=== PATIENT | female | born 1960 | race Caucasian/White ===

== ENCOUNTER 2025-01-07 14:21 | Outpatient (CLI) | payer OTHER, SELFPAY ==
--- OUTSIDE RECORDS SUMMARY | 2025-01-07 14:26 | XMS_ITS | Clinical Summary ---
Author Organization [facility] Address [address] [place] [address] Care Team Providers Care Construction Manager Name Role Phone Lon Recio PA-C Primary Care Provider [phone] Source Comments [facility],non-owned Affiliates and Associated Physician Practices is amultiple site organization consisting of ambulatory clinics and hospital sitesin [place], [place], [place]. This disclosure is being madepursuant to the Care Everywhere program and may not contain all information available regarding this patient. Last updated 18.[facility] [employer] Allergies Active Allergy Reactions Criticality Noted Date Comments Codeine Urticaria Medium 03/02/2020 Medications * Be aware that medications may not be up to date on this document. Alwaysverify current medications with the patient. albuterol HFA (PROVENTIL;VENT MERARY;PROAIR) 108 (90 Base) MCG/ACT inhaler Take 2 puffs by mouth every 4 hours 9 Active cyclobenzaprine (FLEXERIL) 10 MG tablet TAKE 1 TABLET BY MOUTH UP TO THREE TIMES DAILY NEEDED 0 Active fluticasone-fred meterol (ADVAIR/WIXELA) 100-50 MCG/DOSE inhaler INHALE 1 PUFF TWICE DAILY BY INHALATION ROUTE 9 Active omeprazole (PRILOSEC) 40 MG capsule Take 40 mg by mouth once daily 9 Active Pregabalin (LYRICA PO) Take 75 mg by mouth 2 times daily Active chlorthalidone (HYGROTON) 50 MG tablet Take 50 mg by mouth once daily Active fluticasone propionate (FLONASE) 50 MCG/ACT nasal spray Mcdonald 2 sprays into each nostril once daily Active cetirizine (ZYRTEC ALLERGY) 10 MG tablet Take 10 mg by mouth once daily Active venlafaxine (EFFEXOR) 75 MG tabletIndicatio ns:Urinary, incontinence, stress female Take 75 mg by mouth 2 times daily Active Active Problems No known active problems Social History Tobacco Use Types Packs/Day Years Used Date Smoking Tobacco: Every Day Cigarettes Smokeless Tobacco: Never Tobacco Cessation:Ready to Q uit: No; Counseling Given: Yes Alcohol Use Standard Drinks/Week Comments Yes 0 (1 standard drink = 0.6 oz pur e alcohol) occassional Comments No Sex and Gender Information Value Date Recorded Sex Assigned at Not on file Legal Sex Female 11:08 AM CDT Gender Identity Not on file Sexual Orientation Not on file Last Filed Vital Signs Vital Sign Reading Time Taken Comments Blood Pressure 138/86 09/11/2020 10:13 AM CDT Pulse 107 09/11/2020 10:13 AM CDT Temperature 36.2 C (97.1 F) 09/11/2020 10:13 AM CDT Respiratory Rate 18 09/11/2020 10:13 AM CDT Oxygen Saturation 96% 09/11/2020 10:13 AM CDT Inhaled Oxygen Concentration - - Weight 95.7 kg (211 lb) 09/11/2020 10:13 AM CDT Height 177.8 cm (5' 10) 09/11/2020 10:13 AM CDT Body Mass Index 30.28 09/11/2020 10:13 AM CDT Plan of Treatment Health Maintenance Due Date Last Done Comments COLOGUARD (AGES 45-75) - COL ON CA SCREENING 1962 COLON MONITORING 1962 COLONOSCOPY - COLON CA SCREENING 1962 CT COLONOGRAPHY - COLON CA SCREENING 1962 Colorectal Cancer Screening 1962 FIT - COLON CA SCREENING 1962 FLEX SIG - COLON CA SCREENING 1962 LIPID TESTING 1962 MAMMOGRAM 1962 HIV SCREENING 1977 HEPATITIS C SCREENING 12/19/1980 DTAP/TDAP/TD VACCINES (1 - Tdap) 1981 PNEUMOCOCCAL VACCINE 50+ (1 of 1 - PCV) 2012 ZOSTER VACCINE (1 of 2) 2012 SCREENING FOR DIABETES 06/15/2020 COVID-19 VACCINE (2023-2 5 season) 2024 DEPRESSION SCREENING 06/09/2024 INFLUENZA VACCINE (#1) 2025 Respiratory Syncytial Virus (RSV) Vaccine Pt: or over 60 yrs (1 - 1-dose 75+ series) 2037 HEPATITIS B VACCINE Aged Out No longe r eligible based on patient's age to complete this topic HIB VACCINE Aged Out No longer eligi ble based on patient's age to complete this topic HPV VACCINE Aged Out No longer eligi ble based on patient's age to complete this topic MENINGOCOCCAL (Group B) VACC INE SHARED DECISION-MAKING Aged Out No longer eligibl e based on patient's age to complete this topic MENINGOCOCCAL GROUPS A/C/Y/W VACCINE Aged Out No longer eligible b ased on patient's age to complete this topic Medical Devices Implanted Type Area Forms Analysis Manager Device Identifier Shelf Expiration Date Model / Serial / Lot Impl Inj 1ml Coaptite Syr Bulk Agnt - Sn/A Implanted:Qty: 1 on 03/29/2020 by Mando Welch III, MD at [facility] [employer] 12/13/2022 [id number] / N/A / [id number] Impl Inj 1ml Coaptite Syr Bulk Agnt - Sn/A Implanted:Qty: 1 on 03/29/2020 by Mando Welch III, MD at [facility] [employer] 12/13/2022 [id number] / N/A / [id number] Insurance MEDICAID [employer] [place] Care Teams Construction Manager Relationship Specialty Start Date End Date Lon Recio PA-C [address] [place] [phone] PCP - General Physician Custody Officer 02/03/20
--- OUTSIDE RECORDS SUMMARY | 2025-01-07 14:26 | XMS_ITS | Encounter Summary ---
Author Organization [facility] Address [facility] [place] [address] Care Team Providers Care Sales Development Coordinator Name Role Phone Lon Recio PA-C Primary Care Provider Encounter Details Date Type Department Care Team (Late st Contact Info) Description 07/25/[address] [facility] [address] [facility] [place] [address] , Generic Conversion, Social History Tobacco Use Types Packs/Day Years Used Date Smoking Tobacco: Smoker, Current Status Unknown Comments Unknown Sex and Gender Information Value Date Recorded Sex Assigned at Female 08/19/2024 2:55 PM CDT Legal Sex Female 11:42 PM CDT Gender Identity Not on file Sexual Orientation Not on file documented as of this encounter Plan of Treatment Not on file documented as of this encounter Visit Diagnoses Not on filedocumented in this encounter Care Teams Sales Development Coordinator Relationship Specialty Start Date End Date Lon Recio PA-C PCP - General PHYSICIAN BUSINESS DIRECTOR 08/19/24 documented as of this encounter
--- OUTSIDE RECORDS SUMMARY | 2025-01-07 14:26 | XMS_ITS | Clinical Summary ---
Author Organization [facility] Address [address] [place] [address] Care Team Providers Care Timber Bucker Name Role Phone Lon Recio PA-C Primary Care Provider Social History Tobacco Use Types Packs/Day Years Used Date Smoking Tobacco: Smoker, Current Status Unknown Comments Unknown Sex and Gender Information Value Date Recorded Sex Assigned at Female 08/19/2024 2:55 PM CDT Legal Sex Female 11:42 PM CDT Gender Identity Not on file Sexual Orientation Not on file Last Filed Vital Signs Vital Sign Reading Time Taken Comments Blood Pressure 128/64 07/05/2015 9:47 AM RADIO DESPATCHER Pulse 94 04/13/2013 3:24 PM RADIO DESPATCHER Temperature 36.5 C (97.7 F) 04/13/2013 3:24 PM RADIO DESPATCHER Respiratory Rate 18 04/13/2013 3:24 PM RADIO DESPATCHER Oxygen Saturation - - Inhaled Oxygen Concentration - - Weight 77.1 kg (170 lb) 07/05/2015 9:47 AM RADIO DESPATCHER Height 177.8 cm (5' 10) 07/05/2015 9:47 AM RADIO DESPATCHER Body Mass Index 24.39 07/05/2015 9:47 AM RADIO DESPATCHER Plan of Treatment Health Maintenance Due Date Last Done Comments Cervical Cancer Screening Pap Smear (Age 30 to 64) Every 3 Years 1962 Colorectal Cancer Screening Colonoscopy (10 Years) 1962 Annual Physical 1965 Hepatitis C 1980 Cervical Cancer Screening Pap with HPV Testing (Age 30 to 64) Every 5 Years 1992 Cervical Cancer Screening with HPV 1992 Mammogram Screening 2002 Pneumococcal Vaccine: 50+ Years (2 of 2 - PCV) 05/11/2021 05/11/2020 COVID-19 Vaccine ( season) 2024 04/16/2023, 03/27/2022, 05/05/2021, Additional history exists DTaP, Tdap and Td Vaccines (2 - Td or Tdap) 05/11/2030 05/11/2020, 08/04/2008, 10/04/1999 Zoster Vaccines Completed 12/06/2021, 09/21/2021 RSV Immunization or 60+ Years Completed 04/16/2023 Meningococcal B Vaccine Aged Out No l onger eligible based on patient's age to complete this topic Meningococcal Vaccine Aged Out No sheridan brooks eligible based on patient's age to complete this topic RSV Immunizations Under 20 Months Aged Out No longer eligible based on patient's age to complete this topic Insurance Care Teams Timber Bucker Relationship Specialty Start Date End Date Lon Recio PA-C PCP - General PHYSICIAN BRANCH OFFICER 08/19/24
[2025-01-07 14:34] LABS: Hematocrit 36.3 % (35.0-49.0); Hemoglobin 11.7 g/dL (12.0-15.0); Immature Granulocyte Percent A 0.3 % (0.0-0.0); Lymphocytes Absolute Auto 4.79 K/mm3 (1.10-4.50); Mean Corpuscular HGB Conc 32.2 g/dL (32-36); Mean Corpuscular Hemoglobin 29.0 pg (27.0-31.0); Mean Corpuscular Volume 89.9 fL (78.0-102.0); Nucleated Red Blood Cells Absolute Auto 0.00 K/mm3 (0.00-0.00); Nucleated Red Blood Cells Perc 0.0 % (0-0.0); Platelet Count Result 281 K/mm3 (150-420); Red Blood Count 4.04 M/mm3 (4.20-5.40); White Blood Count 11.4 K/mm3 (4.8-10.8)
[2025-01-07 15:19] LABS: Alanine Aminotransferase 10 U/L (6-35); Albumin Level 4.1 g/dL (3.5-5.1); Alkaline Phosphatase 82 U/L (38-126); Anion Gap 3 mmol/L (4-12); Aspartate Amino Transferase 23 U/L (14-36); Bilirubin,Total 0.6 mg/dL (0.2-1.3); Blood Urea Nitrogen 23 mg/dL (7-17); CRP 0.9 mg/dL (<1.0); Calcium 9.3 mg/dL (8.4-10.2); Carbon Dioxide 27 mmol/L (22-30); Chloride 103 mmol/L (98-107); Cholesterol 162 mg/dL (0-200); Estimated Glomerular Filt Rate 23; Glucose 70 mg/dL (65-110); HDL Direct 54 mg/dL; Hemoglobin A1C 5.1 % (<5.7); Osmolality Calculated 277 mOsm/kg (285-295); Potassium 5.2 mmol/L (3.4-5.0); Sodium 133 mmol/L (137-145); Total Protein 6.7 g/dL (6.3-8.2); Triglycerides 129 mg/dL (<150)
[2025-01-07 15:21] LABS: MALB Creatinine Ratio 401.7 mg/g (0-30)
[2025-01-07 15:45] LABS: Thyroid Stimulating Hormone Reflex 1.820 uIU/mL (0.465-4.68)
== END 2025-01-07 14:22 | disposition home or self-care (01) ==
LOC: CHSLAB 14:23
PROVIDERS: PCP Family Medicine; Visit Provider Family Medicine
DX: E03.9 Hypothyroidism, unspecified (principal); I12.9 Hypertensive chronic kidney disease with stage 1 through stage 4 chronic kidney disease, or unspecified chronic kidney disease; N18.30 Chronic kidney disease, stage 3 unspecified
CPT/HCPCS: 36415; 80053; 80061; 82043; 83036; 84443; 85025; 86140

== ENCOUNTER 2025-01-10 16:15 | Outpatient (RCR) | payer OTHER, SELFPAY ==
--- NOTE | 2025-01-10 17:48 | OPREHPOC ---
Outpatient Therapy Plan of Care This is a Multidisciplinary Plan of Care that may contain components documented by all disciplines (PT, OT, and ST.) PT Problem 1 PT Problem #1 Knowledge Deficit PT Goal 1 Goal / Goal Update Independent and compliant with HEP. Target Visit 2 PT Problem 2 PT Problem #2 Impaired Range of Motion PT Goal 1 Goal / Goal Update Pt to improve active lumbar flexion to knees without pain. Pt to improve passive L hip IR ROM to 40 deg without SIJ pain. Target Visit 12 PT Problem 3 PT Problem #3 Impaired Strength PT Goal 1 Goal / Goal Update Pt to improve lower abdominal strength to 4+/5. Pt to improve gross hip strength to 5/5 bilaterally. Target Visit 12 PT Problem 4 PT Problem #4 Impaired Functional Mobility PT Goal 1 Goal / Goal Update Pt to report 10% reduction in perceived disability on Oswestry. Pt to report being awoken 3 or less times during sleep due to pain, indicating improved sleep quality. Target Visit 12
--- NOTE | 2025-01-10 17:48 | PTOPEVAL1 ---
Assessment and note entered by Sirena Gavin, PT Evaluation Information Assessment Status Evaluation ICD-10 Condition Codes (PT) Pain in low back M54.50 Other ICD-10 Condition Codes ( G89.29 PT) Onset 01/07/25 Subjective Information Pt reports her back pain started 9 years ago after she broke her foot. She reports she had to wear a boot for 8 months and thinks this threw off her alignment in terms of walking. She reports excruciating pain in her low back that also goes down into her R hip. She did get a cortisone shot in her lower back the other day and thinks it's been helping. She points to a localized spot between her low back and hip and reports Dr. Kong told her that her SI joint might be part of her pain. Pt has tried using heat/ice packs for pain reduction in addition to medication and steroid injection. Reported Pain Level Pain Score 8: Self Report Assessment PT Clinical Summary Mrs. Ng is a 64 yo female presenting to skilled PT visit for chronic back pain. She demonstrates low back pain that occasionally radiates to the hip and is worsened with active lumbar flexion and R side bending. She also demonstrates pain with palpation to her R PSIS along with positive sacral compression, sacral distraction, and sacral thrust test indicating SIJ dysfunction. In addition she demonstrates impairments in hip and core strength and limitations in passive L hip internal rotation with reproduction of SIJ pain. She will benefit from skilled PT intervention to help manage her pain, improve strength and quality of life to return to daily activities with less difficulty. Plan of Care Interventions Electrical Stimulation,Gait Training,Hot Pack/Cold Pack,Manual Therapy,Mechanical Traction,Neuro Re- education,Patient/Caregiver Education,Therapeutic Activities,Therapeutic Exercise,Self-Care/Home Management Other Interventions TPDN PT Services Indicated Yes Treatment Frequency and 2x/week for 12 visits Duration These treatments will address the objective and functional deficits as defined above. The patient will be advanced safely and appropriately in order for the patient to progress towards his/her prior level of function. Additional exercises will be introduced and as well as a comprehensive home exercise program upon discharge, if needed, ?to ensure carryover of functional gains achieved in the clinic. This treatment plan has been reviewed and agreement upon by the patient.
--- NOTE | 2025-01-20 07:13 | PCPTNOTE ---
Cancelled session. Insurance auth was denied. Waiting on pt to call back.
== END 2025-04-10 23:59 | disposition home or self-care (01) ==
LOC: CHSPT 16:15
PROVIDERS: PCP Family Medicine; Visit Provider Family Medicine
DX: M54.50 Low back pain, unspecified (principal); G89.29 Other chronic pain
CPT/HCPCS: 97110; 97161

== ENCOUNTER 2025-01-26 12:56 | Outpatient (CLI) | payer OTHER, SELFPAY ==
--- OUTSIDE RECORDS SUMMARY | 2024-12-07 06:00 | XMS_ITS ---
Author Organization [facility], [place] Address [address] [facility] [address] [place] [phone] Care Team Providers Care Power Shear Operator Name Role Phone FE CARDOSO Primary Care Provider Anthony Duff Unavailable [phone] REASON FOR VISIT 2a. WOJCIECH C7-T1 MEDICATIONS [...] Encounters Encounter Location Date Provider Diagnosis Billie [address] [address] 12/07/2024 Anthony Montez Cervical disc disord er [...] Janiya son: Follow Up Provider Name:Anthony ortega, 03/08/2025 10:20:00 AM, [address] [place] [address], [phone], Procedure Notes * Category Sub-Category Detail Notes [...] days. Patient denies Travelling within or outside [facility] in last 14 days. Patient [...]
--- OUTSIDE RECORDS SUMMARY | 2025-01-25 04:20 | XMS_ITS ---
Author Organization [employer] [facility] [place], [place] Address [address] [facility] [address] [place] [phone] Care Team Providers Care Optical Store Manager Name Role Phone FE CARDOSO Primary Care Provider Anthony Duff Unavailable [phone] ALLERGIES Allergen (clinical drug ingredient) Drug/Non Drug [...] Problem Radiculopathy, lumbosacral region (M54.17) Active confirmed VITAL SIGNS Temperature 97.6 degrees Fahrenheit 01/26/20 25 Blood pressure systolic 144 mm Hg 01/26/20 25 Blood pressure diastolic 94 mm Hg 025 Heart Rate 83 /min 01/25/2025 Respiratory Rate 18 /min 01/25/2025 Height 69.5 in 01/25/2025 Weight 162.4 lbs 01/25/2025 BMI 23.64 kg/m2 01/25/2025 Oximetry 98 % 01/25/2025 Encounters Encounter Location Date Provider Diagnosis [facility] [address] [place] [address] 01/25/2025 Anthony Montez Cervical disc disord er [...] 08, Reason: follow up Provider Name:Anthony ortega, 03/08/2025 10:20:00 AM, [address] [place] [address], [phone], Progress Notes * Examination Category Sub-Category Detail [...] distribution, warm and dry PSYCH: alert, oriented, legal billing coordinator perative with exam, good eye contact, [...]
--- OUTSIDE RECORDS SUMMARY | 2025-01-25 11:43 | XMS_ITS ---
Author Organization [facility] [place], [place] Address [address] [facility] [place], [place] [address] Care Team Providers Care Stage Electrician Helper Name Role Phone FE CARDOSO Primary Care Provider Anthony Duff Unavailable [phone] REASON FOR VISIT XR LUMBOSACRAL SPINE Encounters Encounter Location Date Provider Diagnosis [place] [address] [place] [address] 01/25/2025 Anthony Montez PLAN OF TREATMENT Next Appt Details Provider Name:Anthony ortega, 03/08/2025 10:20:00 AM, [address] [place], [address],
--- NOTE | ~2025-01-26 | MM_ITS ---
EXAMINATION: MM screening liza BI w dharmesh HISTORY: Screening mammogram TECHNIQUE: Craniocaudal and mediolateral oblique 3-D tomosynthesis images were obtained and synthetic 2-D images were generated. CAD analysis was submitted and interpreted. COMPARISON: No prior mammogram is available for comparison at this institution. BREAST PARENCHYMAL COMPOSITION:Not Dense. There are scattered areas of fibroglandular density. FINDINGS: No suspicious mass, calcification, or architectural distortion are identified in either breast to suggest malignancy. There has been no suspicious interval change. IMPRESSION: No mammographic evidence of malignancy. Recommend routine screening mammography in one year. BI-RADS Category 1: Negative Reviewed, dictated and finalized at location .
--- OUTSIDE RECORDS SUMMARY | 2025-01-26 13:06 | XMS_ITS | Clinical Summary ---
Author Organization [facility] Address [address] [place] [address] Care Team Providers Care Business Education Instructor Name Role Phone Lon Recio PA-C Primary Care Provider [phone] Social History Tobacco Use Types Packs/Day Years [...] Comments Blood Pressure 128/64 07/05/2015 9:47 AM ASSISTANT AT SURGERY Pulse 94 04/13/2013 3:24 PM ASSISTANT AT SURGERY Temperature 36.5 C (97.7 F) 04/13/2013 3:24 PM ASSISTANT AT SURGERY Respiratory Rate 18 04/13/2013 3:24 PM ASSISTANT AT SURGERY Oxygen Saturation - - Inhaled Oxygen Concentration - - Weight 77.1 kg (170 lb) 07/05/2015 9:47 AM ASSISTANT AT SURGERY Height 177.8 cm (5' 10) 07/05/2015 9:47 AM ASSISTANT AT SURGERY Body Mass Index 24.39 07/05/2015 9:47 AM ASSISTANT AT SURGERY Plan of Treatment Health Maintenance Due Date [...] to complete this topic Insurance Care Teams Business Education Instructor Relationship Specialty Start Date End Date Lon Recio PA-C PCP - General PHYSICIAN MACHINE EGG WASHER 08/19/24
--- OUTSIDE RECORDS SUMMARY | 2025-01-26 13:06 | XMS_ITS | Clinical Summary ---
Author Organization [facility] Address [address] [address] [place] [address] Care Team Providers Care Tile Sprayer Name Role Phone Lon Recio PA-C Primary Care Provider [phone] Source Comments [facility],non-owned Affiliates and Associated Physician Practices is amultiple site organization consisting of ambulatory clinics and hospital sitesin [place], [place], [place]. This disclosure is being madepursuant to the Care Everywhere program and may not contain all information available regarding this patient. Last updated 18.[facility] [employer] Allergies Active Allergy Reactions Criticality Noted Date [...] fluticasone propionate (FLONASE) 50 MCG/ACT nasal spray Wilmer 2 sprays into each nostril once daily [...] this topic Medical Devices Implanted Type Area Body Trimmer Upholsterer Device Identifier Shelf Expiration Date Model / Serial / Lot Impl Inj 1ml Coaptite Syr Bulk Agnt - Sn/A Implanted:Qty: 1 on 03/29/2020 by Mando Welch III, MD at [facility] [employer] 12/13/2022 [id number] / N/A / [id number] Impl Inj 1ml Coaptite Syr Bulk Agnt - Sn/A Implanted:Qty: 1 on 03/29/2020 by Mando Welch III, MD at [facility] [employer] 12/13/2022 [id number] / N/A / [id number] Insurance MEDICAID [employer] [place] Care Teams Tile Sprayer Relationship Specialty Start Date End Date Lon Recio PA-C [address] [place] [id number] PCP - General Physician Diesel Engine Mechanic Apprentice 02/03/20
--- OUTSIDE RECORDS SUMMARY | 2025-01-26 13:06 | XMS_ITS | Encounter Summary ---
Author Organization [facility] Address [facility] [place] [address] Care Team Providers Care Manager Training And Development Name Role Phone Lon Recio PA-C Primary Care Provider Encounter Details Date Type Department Care Team (Late st Contact Info) Description 07/25/[address] [facility] [address] [facility] [place] [address] , Generic Conversion, Social History Tobacco Use [...] on filedocumented in this encounter Care Teams Manager Training And Development Relationship Specialty Start Date End Date Lon Recio PA-C PCP - General PHYSICIAN TALKING BOOKS LIBRARY CLERK 08/19/24 documented as of this encounter
--- OUTSIDE RECORDS SUMMARY | 2025-01-26 13:07 | XMS_ITS | Patient Health Record ---
Author Organization [facility] [place], [place] Address [address] [place], [place] [address] Care Team Providers Care Meter Maintenance Person Name Role Phone FE CARDOSO Primary Care Provider Anthony Duff Unavailable [phone] ALLERGIES Allergen (clinical drug ingredient) Drug/Non Drug Allergy documented on EMR Reaction Allergy Type Onset Date Status Venomil Honey Bee Venom Unknown Drug Allergy Active codeine Codeine Unknown Drug Allergy Active Substance with penicillin structure and antibacterial mechanism of action (substance) Penicillins Unknown Drug Allergy Active REASON FOR REFERRAL No Information MEDICATIONS Medication SIG (Take, Route, Frequency, Duration) Notes Start Date End Date Status ALPRAZolam 0.5 MG as directed Orally 1- 2 tabs 30 mins before MRI for 1 day 11/24/2024 Active traMADol HCl 50 MG 1 tablet as needed Orally Once a day states she hasnt had tramadol for 3 months Not-Taking Losartan Potassium 100 MG 1 tablet Orally [...] Active confirmed Cervical disc disorder with radiculopathy (615563486) Problem Cervical disc disorder at C5-C6 level with radiculopathy (M50.122) Active confirmed Cervical radiculopathy (36749771) Problem Cervical disc disorder at C6-C7 level with radiculopathy (M50.123) Active confirmed Cervical disc disorder with radiculopathy (324307396) Problem Radiculopathy, lumbosacral region (M54.17) Active confirmed Problem Spondylosis without myelopathy or radiculopathy, cervical 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) Active confirmed Cervical spondylosis without myelopathy (755756068) VITAL SIGNS Heart Rate 83 /min 01/25/2025 Temperature 97.6 degrees Fahrenheit 01/25/2025 Respiratory Rate 18 /min 01/25/2025 Blood pressure diastolic 94 mm Hg 01/25/2025 Oximetry 98 % 01/25/2025 Height 69.5 in 01/25/2025 Blood pressure systolic 144 mm Hg 01/25/2025 Weight 162.4 lbs 01/25/2025 BMI 23.64 kg/m2 01/25/2025 Encounters Encounter Location Date Provider Diagnosis Billie Fermin [facility],[place],[facility] [address] [place] [address] 11/23/2024 Anthony Montez Cervical disc disord er at C4-C5 level with radiculopathy M50.121 ; Cervical disc disorder at C5-C6 level with radiculopathy M50.122 ; Cervical disc disorder at C6-C7 level with radiculopathy M50.123 ; Spondylosis without myelopathy or radiculopathy, cervical region M47.812 and Pain in right shoulder M25.511 [facility] [address] [place] [address] 11/23/2024 Anthony Montez [facility] [address] [place] [address] 11/23/2024 Anthony Montez [facility] [address] [place] [address] 11/23/2024 Anthony Watersa [facility] [address] [place] [address] 12/07/2024 Anthony Mojicanda Cervical disc disord er at C4-C5 level with radiculopathy M50.121 ; Cervical disc disorder at C5-C6 level with radiculopathy M50.122 and Cervical disc disorder at C6-C7 level with radiculopathy M50.123 [facility] [address] [place] [address] 01/25/2025 Anthony Watersa Cervical disc disord er at C4-C5 level with radiculopathy M50.121 ; Radiculopathy, lumbosacral region M54.17 ; Cervical disc disorder at C5-C6 level with radiculopathy M50.122 ; Cervical disc disorder at C6-C7 level with radiculopathy M50.123 ; Spondylosis without myelopathy or radiculopathy, cervical region M47.812 and Pain in right shoulder M25.511 [facility] [address] [place] [address] 01/25/2025 Anthony Mojicanda ASSESSMENTS Encounter Date Diagnosis Assessment Notes Treatment [...] The [place].S. Federation of State Medical Boards, [place] Pain Society, [place] Academy of Pain Medicine and [place] Society of Interventional Pain Physicians all recommended [...] or other Controlled substances or medications with SURGICAL SALES REPRESENTATIVE effects are serious and include but not [...] The economic costs of pain in the [facility]. J Pain 2012;13:715-24 2. Jack JW, Hector GR, Pete GE, et al. Urine drug testing in the treatment of chronic noncancer pain in a [place] private neuroscience practice; The potential effect of Medicare benefit changes in [place]. Pain Physicians 2010;13:187-94 3. Alex EJ, Dipti [...] chronic pain. Pain Physician 2011;14:123-43 8. Richy Galindo. Grisel V, et al. Does random urine drug testing reduce illicit drug use in chronic pain patients receiving opioids? Pain Physican 2006;9:123-9 9. Zunilda Mccartney, Kellen S, Nellie AM, et al. Monitoring opioid adherence in chronic pain patients: Tools, techniques, and utility. Pain Physicians 2008;11:s155-80 10. Zunilda Mccartney, Ricardo Y, Fara BW, et al. Comparative evaluation of the accuracy of benzodiazepine testing in chronic pain patients utilizing immunoassay with liquid chromatography tandem mass spectrometry(LC/MS /MS) of urine drug testing. Pain physician 2001;14:259-70 11. Phil C, Edith P, West R, et al. LC-MS/MS extends the range of drug analysis in pain patients. Ther Drug Monit 2009;31:746-8 12. Emigdio B, Juli T. Urine drug testing for pain management. Clin Lab Med 2012;32:379-90 13. Donato OCAMPO, Polo LANCASTER, Chelsea ML, et al. Significant cost savings achieved by in-sourcing urine drug testing for monitoring medication compliance in pain management. Clin Rishi Acta 2013;422:10-4 14. Donato OCAMPO, Nicholas NEWBY, Michaela MONTES DE OCA. Optimizing urine drug testing for monitoring medication compliance in pain management. Pain Med 2013;14:1813-20 11/23/2024 Cervical disc disorder at C5-C6 level with radiculopathy (ICD-10 - M50.122) 12/07/2024 Cervical disc disorder at C4-C5 level with radiculopathy (ICD-10 - M50.121) 01/25/2025 Cervical disc disorder at C4-C5 level [...] 01/25/2025 Radiculopathy, lumbosacral region (ICD-10 - M54.17) 11/23/2024 Cervical disc disorder at C6-C7 level with radiculopathy (ICD-10 - M50.123) 12/07/2024 Cervical disc disorder at C5-C6 level with radiculopathy (ICD-10 - M50.122) 01/25/2025 Cervical disc disorder at C5-C6 level with radiculopathy (ICD-10 - M50.122) 11/23/2024 Spondylosis without myelopathy or radiculopathy, cervical region (ICD-10 - M47.812) 12/07/2024 Cervical disc disorder at C6-C7 level with radiculopathy (ICD-10 - M50.123) 01/25/2025 Cervical disc disorder at C6-C7 level with radiculopathy (ICD-10 - M50.123) 11/23/2024 Pain in right shoulder (ICD-10 - M25.511) 01/25/2025 Spondylosis without myelopathy or radiculopathy, cervical region (ICD-10 - M47.812) 01/25/2025 Pain in right shoulder (ICD-10 - M25.511) PLAN OF TREATMENT Pending Test Test Name Order Date MRI : Shoulder, right 11/23/2024 MRI : Lumbar without contrast 01/25/2025 X ray : Lumbosacral Spine 5 view 025 Next Appt Details Provider Name:Anthony Mojica shannon, 03/08/2025 10:20:00 AM, [address] [place] [address], [phone], MEDICAL (GENERAL) HISTORY Medical History History ICD Code Diabetic peripheral neuropathy Overweight Bipolar disorder Anxiety disorder Tobacco dependence syndrome Depressive disorder migraine Essential hypertension COPD CKD stage 3 CKD stage 4 Midline cystocele Female stress incontinence Vesicular hand eczema Ankle pain Neck pain Cerival radiculopathy Low back pain Lumbar radiculopathy Memory impairment Urinary incontinency Hiatal hernia with gastroesophageal refl ux Surgical History Surgery Date(Month/Year) Colonoscopy 06/21/2019 Total Hysterectomy-has 1 ovary 3 EGD 06/21/2019 Hospitalization History Reason Date(Month/Year) head Injury 1979
== END 2025-01-26 12:57 | disposition home or self-care (01) ==
LOC: CHSIMG 12:57
PROVIDERS: PCP Family Medicine; Visit Provider Family Medicine
DX: Z12.31 Encounter for screening mammogram for malignant neoplasm of breast (principal)
CPT/HCPCS: 77063; 77067

== ENCOUNTER 2025-03-07 13:01 | Outpatient (CLI) | payer OTHER, SELFPAY ==
--- OUTSIDE RECORDS SUMMARY | 2024-11-23 06:58 | XMS_ITS ---
Author Organization [employer] [facility] [place], [place] Address [address] [facility] [address] [place], [place] [phone] Care Team Providers Care Urogynecology Physician Name Role Phone FE CARDOSO Primary Care Provider Anthony Duff Unavailable [phone] REASON FOR VISIT WOJCIECH PA Encounters Encounter Location Date Provider Diagnosis [facility] [address] [place] [address] 11/23/2024 Anthony Montez PLAN OF TREATMENT Next Appt Details Provider Name:Anthony ortega, 03/08/2025 10:20:00 AM, [address] [place], [address],
--- OUTSIDE RECORDS SUMMARY | 2024-11-23 07:06 | XMS_ITS ---
Author Organization [facility] [place], [place] Address [address] [facility] [address] [place], [place] [phone] Care Team Providers Care Teacher Cclc Name Role Phone FE CARDOSO Primary Care Provider Anthony Duff Unavailable [phone] REASON FOR VISIT UDS Encounters Encounter [facility] Date [facility] [address] [place] [address] 11/23/2024 Anthony Montez PLAN OF TREATMENT Next Appt Details Provider Name:Anthony ortega, 03/08/2025 10:20:00 AM, [address] [place], [address],
--- OUTSIDE RECORDS SUMMARY | 2024-12-07 06:00 | XMS_ITS ---
Author Organization [facility], [place] Address [address] [facility] [address] [place] [phone] Care Team Providers Care Inventory Manager Name Role Phone FE CARDOSO Primary Care Provider Anthony Duff Unavailable [phone] REASON FOR VISIT 2a. WOJCIECH C7-T1 MEDICATIONS [...] Encounters Encounter Location Date Provider Diagnosis Billie [address] [address] 12/07/2024 Anthony Montez Cervical disc disord er [...] Up Provider Name:Anthony ortega, 03/08/2025 10:20:00 AM, [address] [place] [address], [phone], Procedure Notes * Category Sub-Category Detail Notes [...] days. Patient denies Travelling within or outside [facility] in last 14 days. Patient denies [...]
--- OUTSIDE RECORDS SUMMARY | 2025-01-25 04:20 | XMS_ITS ---
Author Organization [facility] [place], [place] Address [address] [facility] [address] [place] [phone] Care Team Providers Care Enrollment Specialist Name Role Phone FE CARDOSO Primary Care Provider Anthony Duff Unavailable [phone] ALLERGIES Allergen (clinical drug ingredient) Drug/Non Drug [...] lumbosacral region (M54.17) Active confirmed Lumbosacral radiculopathy (6801872) VITAL SIGNS Temperature 97.6 degrees Fahrenheit 01/26/20 25 Blood pressure systolic 144 mm Hg 01/26/20 25 Blood pressure diastolic 94 mm Hg 025 Heart Rate 83 /min 01/25/2025 Respiratory Rate 18 /min 01/25/2025 Height 69.5 in 01/25/2025 Weight 162.4 lbs 01/25/2025 BMI 23.64 kg/m2 01/25/2025 Oximetry 98 % 01/25/2025 Encounters Encounter Location Date Provider Diagnosis [facility],[address] [address] 01/25/2025 Anthony Montez Cervical disc disord er [...] up Provider Name:Anthony ortega, 03/08/2025 10:20:00 AM, [address] [place] [address], [phone], Progress Notes * Examination Category Sub-Category Detail [...] distribution, warm and dry PSYCH: alert, oriented, medication coordinator perative with exam, good eye contact, [...]
--- OUTSIDE RECORDS SUMMARY | 2025-01-25 11:43 | XMS_ITS ---
Author Organization [facility] [place] [facility] [place], [place] Address [address] [place], [place] [address] Care Team Providers Care Wage Analyst Name Role Phone FE CARDOSO Primary Care Provider Anthony Duff Unavailable [phone] REASON FOR VISIT XR LUMBOSACRAL SPINE/PT ORDER Encounters Encounter Location Date Provider Diagnosis [facility] [address] [place] [address] 01/25/2025 Anthony Montez PLAN OF TREATMENT Next Appt Details Provider Name:Anthony ortega, 03/08/2025 10:20:00 AM, [address] [place], [address],
--- NOTE | ~2025-03-07 | US_ITS ---
Examination: Ultrasound of the retroperitoneum including kidneys and bladder. Clinical History: I12.9 - Hypertensive chronic kidney disease with stage 1 ... . Comparison: None available. Findings: Right kidney: 10 cm. Normal echogenicity. No collecting system dilatation. 13 mm stone. 10 mm cyst Left kidney: 10 cm. Normal echogenicity. No collecting system dilatation. Several stones, largest 4 mm. Lobulated cortex. Urinary bladder: Not seen. IMPRESSION: 1. No hydronephrosis. 2. Bilateral nephrolithiasis Reviewed, dictated and finalized at location R.
--- OUTSIDE RECORDS SUMMARY | 2025-03-07 13:17 | XMS_ITS | Patient Health Record ---
Author Organization [facility] [place], [place] Address [address] [place], [place] [address] Care Team Providers Care Natural Gas Engineer Name Role Phone FE CARDOSO Primary Care Provider Anthony Duff Unavailable [phone] ALLERGIES Allergen (clinical drug ingredient) Drug/Non Drug [...] Active confirmed Cervical disc disorder with radiculopathy (698037832) Problem Cervical disc disorder at C5-C6 level with radiculopathy (M50.122) Active confirmed Cervical radiculopathy (06818777) Problem Cervical disc disorder at C6-C7 level with radiculopathy (M50.123) Active confirmed Cervical disc disorder with radiculopathy (638302481) Problem Radiculopathy, lumbosacral region (M54.17) Active confirmed Lumbosacral radiculopathy (5190384) Problem Spondylosis without myelopathy or radiculopathy, cervical 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) Active confirmed Cervical spondylosis without myelopathy (613523630) VITAL SIGNS Heart Rate 83 /min 01/25/2025 Temperature 97.6 degrees Fahrenheit 01/25/2025 Respiratory Rate 18 /min 01/25/2025 Oximetry 98 % 01/25/2025 Blood pressure diastolic 94 mm Hg 01/25/2025 Height 69.5 in 01/25/2025 Blood pressure systolic 144 mm Hg 01/25/2025 Weight 162.4 lbs 01/25/2025 BMI 23.64 kg/m2 01/25/2025 Encounters Encounter Location Date Provider Diagnosis Billie Christensen [facility] [address] [place] [address] 11/23/2024 Anthony Montez Cervical disc disord er at C4-C5 level with radiculopathy M50.121 ; Cervical disc disorder at C5-C6 level with radiculopathy M50.122 ; Cervical disc disorder at C6-C7 level with radiculopathy M50.123 ; Spondylosis without myelopathy or radiculopathy, cervical region M47.812 and Pain in right shoulder M25.511 [facility] [address] [place] [address] 11/23/2024 Anthony Montez [facility] [address] [place] [address] 11/23/2024 Anthony Montez [facility] [address] [place] [address] 11/23/2024 Anthony Tc [facility] [address] [place] [address] 12/07/2024 Anthony Montez Cervical disc disord er at C4-C5 level with radiculopathy M50.121 ; Cervical disc disorder at C5-C6 level with radiculopathy M50.122 and Cervical disc disorder at C6-C7 level with radiculopathy M50.123 [facility] [address] [place] [address] 01/25/2025 Anthony Montez Cervical disc disord er at C4-C5 level with radiculopathy M50.121 ; Radiculopathy, lumbosacral region M54.17 ; Cervical disc disorder at C5-C6 level with radiculopathy M50.122 ; Cervical disc disorder at C6-C7 level with radiculopathy M50.123 ; Spondylosis without myelopathy or radiculopathy, cervical region M47.812 and Pain in right shoulder M25.511 [facility] [address] [place] [address] 01/25/2025 Anthony Watersa ASSESSMENTS Encounter Date Diagnosis Assessment Notes Treatment [...] 01/25/2025 Radiculopathy, lumbosacral region (ICD-10 - M54.17) 12/07/2024 Cervical disc disorder at C4-C5 level with radiculopathy (ICD-10 - M50.121) 11/23/2024 Cervical disc disorder at C4-C5 level [...] The U.S. Federation of State Medical Boards, [place] Pain Society, [place] Academy of Pain Medicine and [place] Society of Interventional Pain Physicians all recommended [...] or other Controlled substances or medications with FIELD SERVICES MANAGER effects are serious and include but not [...] and cross-reactions. References: 1. Esau KESSLER, Sameer Rutledge. The economic costs of pain in the [facility]. J Pain 2012;13:715-24 2. Jack JW, Hector GR, Pete GE, et al. Urine drug testing in the treatment of chronic noncancer pain in a [place] private neuroscience practice; The potential effect of Medicare benefit changes in [place]. Pain Physicians 2010;13:187-94 3. Alex EJ, Dipti [...] - M50.122) 12/07/2024 Cervical disc disorder at C5-C6 level with radiculopathy (ICD-10 - M50.122) 11/23/2024 Cervical disc disorder at C6-C7 level with radiculopathy (ICD-10 - M50.123) 01/25/2025 Cervical disc disorder at C6-C7 level with radiculopathy (ICD-10 - M50.123) 12/07/2024 Cervical disc disorder at C6-C7 level with radiculopathy (ICD-10 - M50.123) 11/23/2024 Spondylosis without myelopathy or radiculopathy, cervical region (ICD-10 - M47.812) 01/25/2025 Spondylosis without myelopathy or radiculopathy, cervical region (ICD-10 - M47.812) 11/23/2024 Pain in right shoulder (ICD-10 - M25.511) 01/25/2025 Pain in right shoulder (ICD-10 - M25.511) PLAN OF TREATMENT Pending Test Test Name Order Date MRI : Shoulder, right 11/23/2024 MRI : Lumbar without contrast 01/25/2025 X ray : Lumbosacral Spine 5 view 025 Next Appt Details Provider Name:Anthony Mojica shannon, 03/08/2025 10:20:00 AM, [address] [place] [address], [phone], MEDICAL (GENERAL) HISTORY Medical History History ICD [...]
--- OUTSIDE RECORDS SUMMARY | 2025-03-07 13:17 | XMS_ITS | Clinical Summary ---
Author Organization [facility] Address [address] [place] [address] Care Team Providers Care Solid Waste Division Supervisor Name Role Phone Lon Recio PA-C Primary Care Provider [phone] Source Comments [facility],non-owned Affiliates and Associated Physician Practices is amultiple site organization consisting of ambulatory clinics and hospital sitesin [place], [place], [place] and [place]. This disclosure is being madepursuant to the Care Everywhere program and may not contain all information available regarding this patient. Last updated 18.[facility] [employer] Allergies Active Allergy Reactions Criticality Noted Date [...] fluticasone propionate (FLONASE) 50 MCG/ACT nasal spray Brent 2 sprays into each nostril once daily [...] of 2) 2012 SCREENING FOR DIABETES 06/15/2020 DEPRESSION SCREENING 06/09/2024 COVID-19 VACCINE (2023-2 5 season) 2025 INFLUENZA VACCINE (#1) 2025 Respiratory Syncytial Virus [...] this topic Medical Devices Implanted Type Area Clinical Program Director Device Identifier Shelf Expiration Date Model / Serial / Lot Impl Inj 1ml Coaptite Syr Bulk Agnt - Sn/A Implanted:Qty: 1 on 03/29/2020 by Mando Welch III, MD at [facility] [employer] 12/13/2022 [id number] / N/A / [id number] Impl Inj 1ml Coaptite Syr Bulk Agnt - Sn/A Implanted:Qty: 1 on 03/29/2020 by Mando Welch III, MD at [facility] [employer] 12/13/2022 [id number] / N/A / [id number] Insurance MEDICAID [employer] [place] Care Teams Solid Waste Division Supervisor Relationship Specialty Start Date End Date Lon Recio PA-C [address] [place] [id number] PCP - General Physician Attorney General 02/03/20
== END 2025-03-07 13:02 | disposition home or self-care (01) ==
LOC: CHSIMG 13:02
PROVIDERS: PCP Family Medicine; Visit Provider Internal Medicine Nephrology
DX: I12.9 Hypertensive chronic kidney disease with stage 1 through stage 4 chronic kidney disease, or unspecified chronic kidney disease (principal); N18.4 Chronic kidney disease, stage 4 (severe); N20.0 Calculus of kidney
CPT/HCPCS: 76770

== ENCOUNTER 2025-04-06 14:23 | Outpatient (CLI) | payer OTHER, SELFPAY ==
--- OUTSIDE RECORDS SUMMARY | 2024-11-23 05:00 | XMS_ITS ---
Author Organization [employer] [facility], [place] Address [address] [place], [place] [phone] Care Team Providers Care Napper Fixer Name Role Phone FE CARDOSO Primary Care Provider Anthony Duff Unavailable [phone] ALLERGIES Allergen (clinical drug ingredient) Drug/Non Drug [...] Active confirmed Cervical disc disorder with radiculopathy (852861342) Problem Cervical disc disorder at C5-C6 level with radiculopathy (M50.122) Active confirmed Cervical radiculopathy (81022119) Problem Cervical disc disorder at C6-C7 level with radiculopathy (M50.123) Active confirmed Cervical disc disorder with radiculopathy (671117184) Problem Spondylosis without myelopathy or radiculopathy, cervical 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) Active confirmed Cervical spondylosis without myelopathy (083098056) VITAL SIGNS Temperature 97.7 degrees Fahrenheit 11/24/19 25 Blood pressure systolic 130 mm Hg 11/24/19 25 Blood pressure diastolic 78 mm Hg 025 Heart Rate 82 /min 11/23/2024 Respiratory Rate 16 /min 11/23/2024 Height 69.5 in 11/23/2024 Weight 169.6 lbs 11/23/2024 BMI 24.68 kg/m2 11/23/2024 Oximetry 94 % 11/23/2024 Encounters Encounter Location Date Provider Diagnosis [address] [address] 11/23/2024 Anthony Montez Cervical disc disord er [...] The [place] Federation of State Medical Boards, [place] [employer], [place] [employer] and [place] [employer] Interventional Pain Physicians all recommended [...] or other Controlled substances or medications with FREIGHT TALLIER effects are serious and include but not [...] The economic costs of pain in the [facility]. J Pain 2012;13:715-24 2. Jack JW, Hector GR, Pete GE, et al. Urine drug testing in the treatment of chronic noncancer pain in a [place] private neuroscience practice; The potential effect of Medicare benefit changes in [place]. Pain Physicians 2010;13:187-94 3. Alex EJ, Dipti [...] The [place] Federation of State Medical Boards, [place] [employer], [place] [employer] and [place] [employer] of Interventional Pain Physicians all recommended [...] or other Controlled substances or medications with FREIGHT TALLIER effects are serious and include but not [...] The economic costs of pain in the [facility]. J Pain 2012;13:715-24 2. Jack JW, Hector GR, Pete GE, et al. Urine drug testing in the treatment of chronic noncancer pain in a [place] private neuroscience practice; The potential effect of Medicare benefit changes in [place]. Pain Physicians 2010;13:187-94 3. Alex EJ, Dipti [...] Provider Name:Anthony Mojica shannon, 05/17/2025 01:40:00 PM, [address] [place] [address], [phone], Progress Notes * Examination Category Sub-Category Detail [...] distribution, warm and dry PSYCH: alert, oriented, audio visual collections coordinator perative with exam, good eye contact, [...]
--- OUTSIDE RECORDS SUMMARY | 2024-11-23 06:39 | XMS_ITS ---
Author Organization [employer] [facility] [place], [place] Address [address] [facility] [address] [place], [place] [phone] Care Team Providers Care Business Continuity Planning Director Name Role Phone FE CARDOSO Primary Care Provider Anthony Duff Unavailable [phone] REASON FOR VISIT MRI R SHOULDER PA MEDICATIONS Medication SIG (Take, Route, Fr equency, Duration) Notes Start Date End Date Status ALPRAZolam 0.5 MG as directed Orally 1 - 2 tabs 30 mins before MRI for 1 day 11/24/2024 Active Encounters Encounter Location Date Provider Diagnosis Billie Christensen [address] [address] 11/23/2024 Anthony Montez PLAN OF TREATMENT Medication Medication Name Sig Start Date Stop Date Notes ALPRAZolam 0.5 MG as directed Orally 1 - 2 tabs 30 mins before MRI for 1 day 11/24/2024 Next Appt Details Provider Name:Anthony ortega, 05/17/2025 01:40:00 PM, [place], [address],
--- OUTSIDE RECORDS SUMMARY | 2024-11-23 06:58 | XMS_ITS ---
Author Organization [employer] [facility], [place] Address [address] [facility] [address] [place], [place] [phone] Care Team Providers Care Honing Machine Operator Semiautomatic Name Role Phone FE CARDOSO Primary Care Provider Anthony Duff Unavailable [phone] REASON FOR VISIT WOJCIECH PA Encounters Encounter Location Date Provider Diagnosis [facility] [address] [place] [address] 11/23/2024 Anthony Montez PLAN OF TREATMENT Next Appt Details Provider Name:Anthony ortega, 05/17/2025 01:40:00 PM, [address] [place], [address],
--- OUTSIDE RECORDS SUMMARY | 2024-11-23 07:06 | XMS_ITS ---
Author Organization [facility] [place], [place] Address [address] [facility] [address] [place], [place] [phone] Care Team Providers Care Comparison Shopper Name Role Phone FE CARDOSO Primary Care Provider Anthony Duff Unavailable [phone] REASON FOR VISIT UDS Encounters Encounter [facility] [address] [place] [address] 11/23/2024 Anthony Montez PLAN OF TREATMENT Next Appt Details Provider Name:Anthony ortega, 05/17/2025 01:40:00 PM, [address] [place], [address],
--- OUTSIDE RECORDS SUMMARY | 2024-12-07 06:00 | XMS_ITS ---
Author Organization [facility], [place] Address [address] [facility] [address] [place] [phone] Care Team Providers Care Asphalt Screed Operator Name Role Phone FE CARDOSO Primary Care Provider Anthony Duff Unavailable [phone] REASON FOR VISIT 2a. WOJCIECH C7-T1 MEDICATIONS [...] Encounters Encounter Location Date Provider Diagnosis Billie [address] [address] 12/07/2024 Anthony Montez Cervical disc disord er [...] Up Provider Name:Anthony ortega, 05/17/2025 01:40:00 PM, [address] [place] [address], [phone], Procedure Notes * Category Sub-Category Detail Notes [...] days. Patient denies Travelling within or outside [facility] in last 14 days. Patient denies having [...]
--- OUTSIDE RECORDS SUMMARY | 2025-01-25 04:20 | XMS_ITS ---
Author Organization [facility] [place], [place] Address [address] [facility] [address] [place] [phone] Care Team Providers Care Tissue Specialist Name Role Phone FE CARDOSO Primary Care Provider Anthony Duff Unavailable [phone] ALLERGIES Allergen (clinical drug ingredient) Drug/Non Drug [...] lumbosacral region (M54.17) Active confirmed Lumbosacral radiculopathy (1290135) VITAL SIGNS Temperature 97.6 degrees Fahrenheit 01/26/20 25 Blood pressure systolic 144 mm Hg 01/26/20 25 Blood pressure diastolic 94 mm Hg 025 Heart Rate 83 /min 01/25/2025 Respiratory Rate 18 /min 01/25/2025 Height 69.5 in 01/25/2025 Weight 162.4 lbs 01/25/2025 BMI 23.64 kg/m2 01/25/2025 Oximetry 98 % 01/25/2025 Encounters Encounter Location Date Provider Diagnosis [facility] [address] 01/25/2025 Anthony Montez Cervical disc disord er [...] up Provider Name:Anthony ortega, 05/17/2025 01:40:00 PM, [address] [place] [address], [phone], Progress Notes * Examination Category Sub-Category Detail [...] distribution, warm and dry PSYCH: alert, oriented, web coordinator perative with exam, good eye contact, [...]
--- OUTSIDE RECORDS SUMMARY | 2025-01-25 11:43 | XMS_ITS ---
Author Organization [facility] [place], [place] Address [address] [place], [place] [address] Care Team Providers Care Wet Pour Mixer Name Role Phone FE CARDOSO Primary Care Provider Anthony Duff Unavailable [phone] REASON FOR VISIT XR LUMBOSACRAL SPINE/PT ORDER Encounters Encounter Location Date Provider Diagnosis [facility] [address] [place] [address] 01/25/2025 Anthony Montez PLAN OF TREATMENT Next Appt Details Provider Name:Anthony ortega, 05/17/2025 01:40:00 PM, [address] [place], [address],
--- OUTSIDE RECORDS SUMMARY | 2025-03-08 05:20 | XMS_ITS ---
Author Organization [facility], [place] Address [address] [facility] [address] [place], [place] [address] Care Team Providers Care Gis Physical Scientist Name Role Phone FE CARDOSO Primary Care Provider Anthony Duff Unavailable [phone] ALLERGIES Allergen (clinical drug ingredient) Drug/Non Drug [...] Encounters Encounter Location Date Provider Diagnosis Billie [address] [address] 03/08/2025 Anthony Montez Cervical disc disord er [...] 17, Reason: fo llow up Provider Name:Anthony oretga, 05/17/2025 01:40:00 PM, [address] [place], [address], Progress Notes * Examination Category Sub-Category Detail [...] distribution, warm and dry PSYCH: alert, oriented, project coordinator rn perative with exam, good eye contact, judgement [...]
[2025-04-06 15:22] LABS: Albumin Level 4.5 g/dL (3.5-5.1); Anion Gap 11 mmol/L (4-12); Blood Urea Nitrogen 62 mg/dL (7-17); Calcium 9.8 mg/dL (8.4-10.2); Carbon Dioxide 27 mmol/L (22-30); Chloride 99 mmol/L (98-107); Estimated Glomerular Filt Rate 17; Glucose 95 mg/dL (65-110); Osmolality Calculated 301 mOsm/kg (285-295); Potassium 5.7 mmol/L (3.4-5.0); Sodium 137 mmol/L (137-145); Total Protein Urine Random 58 mg/dL; Ur Ttl Prot Creatinine Ratio 0.92 mg/mg (0-0.20)
--- OUTSIDE RECORDS SUMMARY | 2025-04-06 16:18 | XMS_ITS | Patient Health Record ---
Author Organization [facility] [place], [place] Address [address] [place], [place] [address] Care Team Providers Care Children'S Lunchroom Supervisor Name Role Phone JANAE FE Primary Care Provider Anthony Duff Unavailable [phone] ALLERGIES Allergen (clinical drug ingredient) Drug/Non Drug [...] Duration) Notes Start Date End Date Status Fluticasone-Salmeterol 100-50 MCG/ACT 1 puff Inhalation Twice a day Active Losartan Potassium 100 MG 1 tablet Orally Once a day for 30 day(s) Active Metoprolol Succinate 100 MG 1 capsule Orally Once a day for 30 day(s) Active Pregabalin 75 MG 1 capsule Orally bid Active Albuterol Sulfate HFA 108 (90 Base) MCG/ACT 1 puff as needed Inhalation every 4 hrs Active Chlorthalidone 50 MG 1 tablet in the morning with food Orally for 30 day(s) Active Cyclobenzaprine HCl 10 MG 1 tablet at bedtime as needed Orally Once a day for 30 day(s) Active traMADol HCl 50 MG 1 tablet as needed Orally Once a day states she hasnt had tramadol for 3 months Not-Taking ALPRAZolam 0.5 MG as directed Orally 1- 2 tabs 30 mins before MRI for 1 day 11/24/2024 Not-Taking SOCIAL HISTORY Tobacco Use: Social History Observation [...] Active confirmed Cervical disc disorder with radiculopathy (477863737) Problem Cervical disc disorder at C5-C6 level with radiculopathy (M50.122) Active confirmed Cervical radiculopathy (67151024) Problem Cervical disc disorder at C6-C7 level with radiculopathy (M50.123) Active confirmed Cervical disc disorder with radiculopathy (656899054) Problem Radiculopathy, lumbosacral region (M54.17) Active confirmed Lumbosacral radiculopathy (4443104) Problem Spondylosis without myelopathy or radiculopathy, cervical 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) Active confirmed Cervical spondylosis without myelopathy (892868472) VITAL SIGNS Heart Rate 85 /min 03/08/2025 Temperature 97.4 degrees Fahrenheit 03/08/2025 Respiratory Rate 18 /min 03/08/2025 Blood pressure diastolic 78 mm Hg 03/08/2025 Oximetry 94 % 03/08/2025 Height 69.5 in 03/08/2025 Blood pressure systolic 142 mm Hg 03/08/2025 Weight 159 lbs 03/08/2025 BMI 23.14 kg/m2 03/08/2025 Encounters Encounter Location Date Provider Diagnosis Billie [facility],[address] [address] 11/23/2024 Anthony Montez Cervical disc disord er at C4-C5 level with radiculopathy M50.121 ; Cervical disc disorder at C5-C6 level with radiculopathy M50.122 ; Cervical disc disorder at C6-C7 level with radiculopathy M50.123 ; Spondylosis without myelopathy or radiculopathy, cervical region M47.812 and Pain in right shoulder M25.511 [facility] [address] [place] [address] 11/23/2024 Anthony Montez [facility] [address] [place] [address] 11/23/20[facility] [address] [place] [address] [facility]/23[facility] [address] [place] [address] 12/07/2024 Anthony Montez Cervical disc disord er at C4-C5 level with radiculopathy M50.121 ; Cervical disc disorder at C5-C6 level with radiculopathy M50.122 and Cervical disc disorder at C6-C7 level with radiculopathy M50.123 [facility] [address] [place] [address] 01/25/2025 Anthony Tc Cervical disc disord er at C4-C5 level with radiculopathy M50.121 ; Radiculopathy, lumbosacral region M54.17 ; Cervical disc disorder at C5-C6 level with radiculopathy M50.122 ; Cervical disc disorder at C6-C7 level with radiculopathy M50.123 ; Spondylosis without myelopathy or radiculopathy, cervical region M47.812 and Pain in right shoulder M25.511 [facility] [address] [place] [address] 01/25/2025 [facility] [address] [place] [address] 03/08/2025 Anthony Montez Cervical disc disord er [...] or other Controlled substances or medications with FORENSIC COMPUTER EXAMINER effects are serious and include but not [...] The economic costs of pain in the [facility] States. J Pain 2012;13:715-24 2. Jack JW, Hector GR, Pete GE, et al. Urine drug testing in the treatment of chronic noncancer pain in a [place] private neuroscience practice; The potential effect of Medicare benefit changes in [place]. Pain Physicians 2010;13:187-94 3. Alex EJ, Dipti [...] chronic pain. Pain Physician 2011;14:123-43 8. Richy Gailndo V, et al. Does random urine drug testing reduce illicit drug use in chronic pain patients receiving opioids? Pain Physican 2006;9:123-9 9. Zunilda Mccartney, Kellen S, Nellie AM, et al. Monitoring opioid adherence in chronic pain patients: Tools, techniques, and utility. Pain Physicians 2008;11:s155-80 10. Ricardo Galindo, Fara FULLER, et al. Comparative evaluation of the accuracy of benzodiazepine testing in chronic pain patients utilizing immunoassay with liquid chromatography tandem mass spectrometry(LC/MS /MS) of urine drug testing. Pain physician 2001;14:259-70 11. Phil Rg, Edith P, Gee R, et al. LC-MS/MS [...] 01/25/2025 Radiculopathy, lumbosacral region (ICD-10 - M54.17) 03/08/2025 Cervical disc disorder at C4-C5 level [...] [place] reviewed TODAY and patient is COMPLIANT. 11/23/2024 Cervical disc disorder at C6-C7 level with radiculopathy (ICD-10 - M50.123) 12/07/2024 Cervical disc disorder at C5-C6 level with radiculopathy (ICD-10 - M50.122) 01/25/2025 Cervical disc disorder at C5-C6 level with radiculopathy (ICD-10 - M50.122) 03/08/2025 Cervical disc disorder at C5-C6 level with radiculopathy (ICD-10 - M50.122) 03/08/2025 Radiculopathy, lumbosacral region (ICD-10 - M54.17) 11/23/2024 Spondylosis without myelopathy or radiculopathy, cervical region (ICD-10 - M47.812) 12/07/2024 Cervical disc disorder at C6-C7 level with radiculopathy (ICD-10 - M50.123) 01/25/2025 Cervical disc disorder at C6-C7 level with radiculopathy (ICD-10 - M50.123) 03/08/2025 Cervical disc disorder at C6-C7 level with radiculopathy (ICD-10 - M50.123) 11/23/2024 Pain in right shoulder (ICD-10 - M25.511) 01/25/2025 Spondylosis without myelopathy or radiculopathy, cervical region (ICD-10 - M47.812) 03/08/2025 Spondylosis without myelopathy or radiculopathy, cervical region (ICD-10 - M47.812) 01/25/2025 Pain in right shoulder (ICD-10 - M25.511) 03/08/2025 Pain in right shoulder (ICD-10 - M25.511) PLAN OF TREATMENT Pending Test Test Name Order Date MRI : Shoulder, right 11/23/2024 MRI : Lumbar without contrast 03/08/2025 MRI : Lumbar without contrast 01/25/2025 X ray : Lumbosacral Spine 5 view 025 Next Appt Details Provider Name:Anthony Mojica shannon, 05/17/2025 01:40:00 PM, [address] [place] [address], [address], MEDICAL (GENERAL) HISTORY Medical History History ICD [...] Total Hysterectomy-has 1 ovary 3 EGD 06/21/2019 CERVICAL INJECTION Hospitalization History Reason Date(Month/Year) head Injury 1979
--- OUTSIDE RECORDS SUMMARY | 2025-04-06 16:18 | XMS_ITS | Clinical Summary ---
Author Organization [facility] Address [address] [place] [address] Care Team Providers Care Laundry Tub Maker Name Role Phone Lon Recio PA-C Primary Care Provider [phone] Source Comments [facility],non-owned Affiliates and Associated Physician Practices is amultiple site organization consisting of ambulatory clinics and hospital sitesin [place], [place], [place] and [place]. This disclosure is being madepursuant to the Care Everywhere program and may not contain all information available regarding this patient. Last updated 18.[facility] [employer] Allergies Active Allergy Reactions Criticality Noted Date [...] fluticasone propionate (FLONASE) 50 MCG/ACT nasal spray [place] 2 sprays into each nostril once daily [...] this topic Medical Devices Implanted Type Area Lace Weaver Device Identifier Shelf Expiration Date Model / Serial / Lot Impl Inj 1ml Coaptite Syr Bulk Agnt - Sn/A Implanted:Qty: 1 on 03/29/2020 by Mando Welch III, MD at [facility] [employer] 12/13/2022 [id number] / N/A / [id number] Impl Inj 1ml Coaptite Syr Bulk Agnt - Sn/A Implanted:Qty: 1 on 03/29/2020 by Mando Welch III, MD at [facility] [employer] 12/13/2022 [id number] / N/A / [id number] Insurance MEDICAID [employer] [place] Care Teams Laundry Tub Maker Relationship Specialty Start Date End Date Lon Recio PA-C [address] [place] [phone] PCP - General Physician Senior Adults Director 02/03/20
[2025-04-07 14:08] LABS: Albumin 3.7 g/dL (2.9-4.4); Alpha-1-Globulin 0.3 g/dL (0.0-0.4); Alpha-2-Globulin 0.8 g/dL (0.4-1.0); Gamma Globulin 1.1 g/dL (0.4-1.8)
[2025-04-08 12:08] LABS: ANA by IFA Rfx Titer/Pattern Positive (.)
[2025-04-08 15:09] LABS: Albumin, U 67.4 % (.); Alpha-1-Globulin, U 3.2 % (.); Alpha-2-Globulin, U 5.1 % (.); Beta Globulin, U 16.3 % (.); Gamma Globulin, U 8.1 % (.)
[2025-04-11 21:07] LABS: Anti-GBM Antibodies <0.2 units (0.0-0.9)
[2025-04-12 14:08] LABS: Anti-MPO Antibodies <0.2 units (0.0-0.9); Anti-PR3 Antibodies <0.2 units (0.0-0.9); Saccharomyces cerevisiae, IgA 32.2 Units (0.0-24.9); Saccharomyces cerevisiae, IgG 50.0 Units (0.0-24.9)
== END 2025-04-06 14:24 | disposition home or self-care (01) ==
LOC: CHSLAB 14:24
PROVIDERS: PCP Family Medicine; Visit Provider Internal Medicine Nephrology
DX: I12.9 Hypertensive chronic kidney disease with stage 1 through stage 4 chronic kidney disease, or unspecified chronic kidney disease (principal); N18.4 Chronic kidney disease, stage 4 (severe)
CPT/HCPCS: 36415; 80069; 82570; 84155; 84156; 84165; 84166; 86037; 86038; 86160; 86364; 86671

== ENCOUNTER 2025-04-15 13:42 | Outpatient (CLI) | payer OTHER, SELFPAY ==
--- OUTSIDE RECORDS SUMMARY | 2025-04-15 13:46 | XMS_ITS | Clinical Summary ---
Author Organization [facility] Address [address] [place] [address] Care Team Providers Care Parole Supervisor Name Role Phone Lon Recio PA-C Primary Care Provider [phone] Source Comments [facility],non-owned Affiliates and Associated Physician Practices is amultiple site organization consisting of ambulatory clinics and hospital sitesin [place], [place], [place] and [place]. This disclosure is being madepursuant to the Care Everywhere program and may not contain all information available regarding this patient. Last updated 18.[facility] [employer] Allergies Active Allergy Reactions Criticality Noted Date [...] fluticasone propionate (FLONASE) 50 MCG/ACT nasal spray [place] 2 sprays into each nostril once daily [...] this topic Medical Devices Implanted Type Area Gelatin Powder Mixer Device Identifier Shelf Expiration Date Model / Serial / Lot Impl Inj 1ml Coaptite Syr Bulk Agnt - Sn/A Implanted:Qty: 1 on 03/29/2020 by Mando Welch III, MD at [facility] [employer] 12/13/2022 [id number] / N/A / [id number] Impl Inj 1ml Coaptite Syr Bulk Agnt - Sn/A Implanted:Qty: 1 on 03/29/2020 by Mando Welch III, MD at [facility] [employer] 12/13/2022 [id number] / N/A / [id number] Insurance MEDICAID [employer] [place] Care Teams Parole Supervisor Relationship Specialty Start Date End Date Lon Recio PA-C [address] [place] [phone] PCP - General Physician Circuit Breaker Supervisor 02/03/20
--- OUTSIDE RECORDS SUMMARY | 2025-04-15 13:46 | XMS_ITS | Encounter Summary ---
Author Organization [facility] Address [facility] [place] [address] Care Team Providers Care Motors And Generators Inspector Name Role Phone Lon Recio PA-C Primary Care Provider [phone] Encounter Details Date Type Department Care Team (Late st Contact Info) Description 07/25/[address] [facility] Con[facility] [address] [place] [address] , Generic Conversion, Social History Tobacco Use [...] on filedocumented in this encounter Care Teams Motors And Generators Inspector Relationship Specialty Start Date End Date Lon Recio PA-C PCP - General PHYSICIAN HOSTING ENGINEER 08/19/24 documented as of this encounter
--- OUTSIDE RECORDS SUMMARY | 2025-04-15 13:46 | XMS_ITS | Clinical Summary ---
Author Organization [facility] Address [address] [place] [address] Care Team Providers Care Business Project Manager Name Role Phone Lon Recio PA-C Primary Care Provider [phone] Social History Tobacco Use Types Packs/Day Years [...] Comments Blood Pressure 128/64 07/05/2015 9:47 AM PATIENT OMBUDSPERSON Pulse 94 04/13/2013 3:24 PM PATIENT OMBUDSPERSON Temperature 36.5 C (97.7 F) 04/13/2013 3:24 PM PATIENT OMBUDSPERSON Respiratory Rate 18 04/13/2013 3:24 PM PATIENT OMBUDSPERSON Oxygen Saturation - - Inhaled Oxygen Concentration - - Weight 77.1 kg (170 lb) 07/05/2015 9:47 AM PATIENT OMBUDSPERSON Height 177.8 cm (5' 10) 07/05/2015 9:47 AM PATIENT OMBUDSPERSON Body Mass Index 24.39 07/05/2015 9:47 AM PATIENT OMBUDSPERSON Plan of Treatment Health Maintenance Due Date [...] PCV) 05/11/2021 05/11/2020 COVID-19 Vaccine ( season) 2025 04/16/2023, 03/27/2022, 05/05/2021, Additional history exists Influenza Adult (#1) 2025 04/16/2024, 04/16/2023, 03/27/2022, Additional history exists DTaP, Tdap and Td Vaccines (2 - Td or Tdap) 05/11/2030 05/11/2020, 08/04/2008, 10/04/1999 Zoster Vaccines Completed 12/06/2021, 09/21/2021 RSV Immunization or 60+ Years Completed 04/16/2023 Hepatitis A Vaccines Aged Out No long er eligible based on patient's age to complete this topic Meningococcal B Vaccine Aged Out No l onger eligible based on patient's age to complete this topic Meningococcal Vaccine Aged Out No sheridan brooks eligible based on patient's age to complete this topic RSV Immunizations Under 20 Months Aged Out No longer eligible based on patient's age to complete this topic Insurance Care Teams Business Project Manager Relationship Specialty Start Date End Date Lon Recio PA-C PCP - General PHYSICIAN UNDERCOATER 08/19/24
[2025-04-15] MEDS: PROCHLORPERAZINE EDISYLATE 10 MG/2 ML VIAL IV PUSH (13:50)
[2025-04-15] MEDS: SODIUM CHLORIDE 0.9% IV 1,000 ML 999 ML IVPB (13:50)
[2025-04-15 14:17] VITALS: BP 121/83; PULSE 80; RESP 14; TEMP 36.3; O2SAT 96; BMI 22.4
[2025-04-15 15:09] VITALS: BP 130/73; PULSE 76; RESP 14; TEMP 36.6; O2SAT 98
--- NOTE | 2025-04-15 15:25 | PC.NURSE ---
Patient tolerated infusion and injections well. Patient reports Migraine is mostly gone. Steady on feet to bathroom and back.
== END 2025-04-15 13:43 | disposition home or self-care (01) ==
PROVIDERS: PCP Family Medicine; Visit Provider Family Medicine
DX: G43.909 Migraine, unspecified, not intractable, without status migrainosus (principal)
CPT/HCPCS: 96360; 96375; J0780; J1200; J7030

== ENCOUNTER 2025-04-22 13:13 | Outpatient (CLI) | payer OTHER, SELFPAY ==
--- OUTSIDE RECORDS SUMMARY | 2024-11-23 04:00 | XMS_ITS ---
Author Organization [employer] [facility], [place] Address [address] [place], [place] [phone] Care Team Providers Care Registered Phlebotomist Part Time Name Role Phone FE CARDOSO Primary Care Provider Anthony Duff Unavailable [phone] ALLERGIES Allergen (clinical drug ingredient) Drug/Non Drug [...] Active confirmed Cervical disc disorder with radiculopathy (968717113) Problem Cervical disc disorder at C5-C6 level with radiculopathy (M50.122) Active confirmed Cervical radiculopathy (38622433) Problem Cervical disc disorder at C6-C7 level with radiculopathy (M50.123) Active confirmed Cervical disc disorder with radiculopathy (691319744) Problem Spondylosis without myelopathy or radiculopathy, cervical 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) Active confirmed Cervical spondylosis without myelopathy (762684226) VITAL SIGNS Temperature 97.7 degrees Fahrenheit 11/24/19 25 Blood pressure systolic 130 mm Hg 11/24/19 25 Blood pressure diastolic 78 mm Hg 025 Heart Rate 82 /min 11/23/2024 Respiratory Rate 16 /min 11/23/2024 Height 69.5 in 11/23/2024 Weight 169.6 lbs 11/23/2024 BMI 24.68 kg/m2 11/23/2024 Oximetry 94 % 11/23/2024 Encounters Encounter Location Date Provider Diagnosis [address] [address] 11/23/2024 Anthony Montez Cervical disc disord er [...] The [place] Federation of State Medical Boards, [place] [employer], [place] [employer] and [place] Society of Interventional Pain Physicians all recommended [...] or other Controlled substances or medications with CHECK CLERK effects are serious and include but not [...] The economic costs of pain in the [facility]. J Pain 2012;13:715-24 2. Jack JW, Hector GR, Pete GE, et al. Urine drug testing in the treatment of chronic noncancer pain in a [place] private neuroscience practice; The potential effect of Medicare benefit changes in [place]. Pain Physicians 2010;13:187-94 3. Alex EJ, Dipti [...] The [place] Federation of State Medical Boards, [place] [employer], [place] [employer] Medicine and [place] Society of Interventional Pain Physicians all recommended [...] or other Controlled substances or medications with CHECK CLERK effects are serious and include but not [...] The economic costs of pain in the [facility]. J Pain 2012;13:715-24 2. Jack JW, Hector GR, Pete GE, et al. Urine drug testing in the treatment of chronic noncancer pain in a [place] private neuroscience practice; The potential effect of Medicare benefit changes in [place]. Pain Physicians 2010;13:187-94 3. Alex EJ, Dipti [...] Provider Name:Anthony Mojica shannon, 05/17/2025 01:40:00 PM, [address] [place] [address], [id number], Progress Notes * Examination Category Sub-Category Detail [...] distribution, warm and dry PSYCH: alert, oriented, food cooking machine operator perative with exam, good eye contact, judgement [...]
--- OUTSIDE RECORDS SUMMARY | 2024-11-23 05:39 | XMS_ITS ---
Author Organization [employer] [facility] [place], [place] Address [address] [facility] [address] [place], [place] [phone] Care Team Providers Care Dianetic Counselor Name Role Phone FE CARDOSO Primary Care Provider Anthony Duff Unavailable [phone] REASON FOR VISIT MRI R SHOULDER PA MEDICATIONS Medication SIG (Take, Route, Fr equency, Duration) Notes Start Date End Date Status ALPRAZolam 0.5 MG as directed Orally 1 - 2 tabs 30 mins before MRI for 1 day 11/24/2024 Active Encounters Encounter Location Date Provider Diagnosis Billie Christensen [address] [address] 11/23/2024 Anthony Montez PLAN OF TREATMENT Medication Medication Name Sig Start Date Stop Date Notes ALPRAZolam 0.5 MG as directed Orally 1 - 2 tabs 30 mins before MRI for 1 day 11/24/2024 Next Appt Details Provider Name:Anthony ortega, 05/17/2025 01:40:00 PM, [address] [place] [address], [phone],
--- OUTSIDE RECORDS SUMMARY | 2024-11-23 05:58 | XMS_ITS ---
Author Organization [employer] [facility], [place] Address [address] [facility] [facility] [address] [place], [place] [phone] Care Team Providers Care Child Monitor Name Role Phone FE CARDOSO Primary Care Provider Anthony Duff Unavailable [phone] REASON FOR VISIT WOJCIECH PA Encounters Encounter Location Date Provider Diagnosis [facility] [address] [place] [address] 11/23/2024 Anthony Montez PLAN OF TREATMENT Next Appt Details Provider Name:Anthony ortega, 05/17/2025 01:40:00 PM, [address] [place], [address],
--- OUTSIDE RECORDS SUMMARY | 2024-11-23 06:06 | XMS_ITS ---
Author Organization [facility] [place], [place] Address [address] [facility] [address] [place], [place] [phone] Care Team Providers Care Homicide Squad Captain Name Role Phone FE CARDOSO Primary Care Provider Anthony Duff Unavailable [phone] REASON FOR VISIT UDS Encounters Encounter Location Date [facility] [address] [place] [address] 11/23/2024 Anthony Montez PLAN OF TREATMENT Next Appt Details Provider Name:Anthony ortega, 05/17/2025 01:40:00 PM, [address] [place], [address],
--- OUTSIDE RECORDS SUMMARY | 2024-12-07 05:00 | XMS_ITS ---
Author Organization [facility], [place] Address [address] [facility] [address] [place] [phone] Care Team Providers Care Pediatric Geneticist Name Role Phone FE CARDOSO Primary Care Provider Anthony Duff Unavailable [phone] REASON FOR VISIT 2a. WOJCIECH C7-T1 MEDICATIONS [...] Encounters Encounter Location Date Provider Diagnosis Billie [address] [address] 12/07/2024 Anthony Montez Cervical disc disord er [...] Up Provider Name:Anthony ortega, 05/17/2025 01:40:00 PM, [address] [place] [address], [phone], Procedure Notes * Category Sub-Category Detail Notes [...] days. Patient denies Travelling within or outside [facility] in last 14 days. Patient denies having [...]
--- OUTSIDE RECORDS SUMMARY | 2025-01-25 03:20 | XMS_ITS ---
Author Organization [facility] [place], [place] Address [address] [facility] [address] [place] [phone] Care Team Providers Care Youth Court Judge Name Role Phone FE CARDOSO Primary Care Provider Anthony Duff Unavailable [phone] ALLERGIES Allergen (clinical drug ingredient) Drug/Non Drug [...] lumbosacral region (M54.17) Active confirmed Lumbosacral radiculopathy (4002911) VITAL SIGNS Temperature 97.6 degrees Fahrenheit 01/26/20 25 Blood pressure systolic 144 mm Hg 01/26/20 25 Blood pressure diastolic 94 mm Hg 025 Heart Rate 83 /min 01/25/2025 Respiratory Rate 18 /min 01/25/2025 Height 69.5 in 01/25/2025 Weight 162.4 lbs 01/25/2025 BMI 23.64 kg/m2 01/25/2025 Oximetry 98 % 01/25/2025 Encounters Encounter Location Date Provider Diagnosis [facility],[address] [address] 01/25/2025 Anthony Montez Cervical disc disord er [...] up Provider Name:Anthony ortega, 05/17/2025 01:40:00 PM, [address] [place] [address], [phone], Progress Notes * Examination Category Sub-Category Detail [...] distribution, warm and dry PSYCH: alert, oriented, pm head cook perative with exam, good eye contact, judgement [...]
--- OUTSIDE RECORDS SUMMARY | 2025-01-25 10:43 | XMS_ITS ---
Author Organization [facility] [place], [place] Address [address] [place], [place] [address] Care Team Providers Care Exhibition Specialist Name Role Phone FE CARDOSO Primary Care Provider Anthony Duff Unavailable [phone] REASON FOR VISIT XR LUMBOSACRAL SPINE/PT ORDER Encounters Encounter Location Date Provider Diagnosis [facility] [address] [place] [address] 01/25/2025 Anthony Montez PLAN OF TREATMENT Next Appt Details Provider Name:Anthony ortega, 05/17/2025 01:40:00 PM, [address] [place], [address],
--- OUTSIDE RECORDS SUMMARY | 2025-03-08 04:20 | XMS_ITS ---
Author Organization [facility], [place] Address [address] [facility] [address] [place], [place] [address] Care Team Providers Care Copy Worker Name Role Phone FE CARDOSO Primary Care Provider Anthony Duff Unavailable [phone] ALLERGIES Allergen (clinical drug ingredient) Drug/Non Drug [...] Encounters Encounter Location Date Provider Diagnosis Billie [address] [address] 03/08/2025 Anthony Montez Cervical disc disord er [...] Name:Anthony ortega, 05/17/2025 01:40:00 PM, [address] [place], [address], Progress Notes * Examination Category Sub-Category Detail [...] distribution, warm and dry PSYCH: alert, oriented, log operations coordinator perative with exam, good eye contact, [...]
--- NOTE | 2025-04-22 13:24 | ECG_ITS ---
Test Date: 2025-04-22 13:31:30 Measurements Intervals [place] Rate: 71 P: 82 WY: 157 QRS: 80 QRSD: 94 T: 78 QT: 357 QTc: 389 Interpretive Statements SINUS RHYTHM WITHIN NORMAL LIMITS No previous ECG available for comparison Electronically Signed On 04-22-2025 13:32:06 GED PREPARATION TEACHER by Coleman Mosley M.D.
[2025-04-22 13:46] LABS: INR 0.9; Partial Thromboplastin Time 26.6 Sec (23.9-30.70); Prothrombin Time 10.2 Seconds (9.50-12.1)
[2025-04-22 13:58] LABS: Anion Gap 10 mmol/L (4-12); Blood Urea Nitrogen 34 mg/dL (7-17); Calcium 9.9 mg/dL (8.4-10.2); Carbon Dioxide 26 mmol/L (22-30); Chloride 98 mmol/L (98-107); Estimated Glomerular Filt Rate 26; Glucose 132 mg/dL (65-110); Osmolality Calculated 287 mOsm/kg (285-295); Potassium 4.5 mmol/L (3.4-5.0); Sodium 134 mmol/L (137-145)
--- OUTSIDE RECORDS SUMMARY | 2025-04-22 17:32 | XMS_ITS ---
Author Organization Unknown Address [address] [place] [phone] Phone Care Team Providers Care Branch Or Department Chief Librarian Name Role Phone MALIKA ODALYS Sims Attending Unavailable REE COULTER Primary Unavailable Social History Type Status Start Date End Date Code Code Syst em Sex Female Hospital Discharge Instructions Should you have any questions prior to discharge, please contact a member of your healthcare team. If you have left the hospital and have any questions, please contact your primary care physician. Reason For Referral No Data Found Allergies and Adverse Reactions Allergy Substance Reaction Severity Start Date Concern Status Code Code System PENICILLINS (CLASS) Rash (SNOMED-CT: 830896139), Itching (SNOMED-CT: 801156637), ABD pain (SNOMED-CT: 02811275), Diarrhea (SNOMED-CT: 53045050) Active 240599117 SNOMED-CT CODEINE Hives (SNOMED-CT: 063202940) Active 2670 RxNorm BEE VENOM Rash (SNOMED-CT: 352840220), Swelling (SNOMED-CT: 49328255), Itching (SNOMED-CT: 060960196), Abdominal Pain (SNOMED-CT: null) Active 299696 RxNorm Plan of Treatment MG MAMM SCREEN BILAT 30 04/21/2024 NEW PATIENT 11/23/2024 MRI SHOULDER 11/30/2024 FOLLOW-UP 01/25/2025 FOLLOW-UP 03/08/2025 FOLLOW-UP 05/17/2025 Encounters Encounter Diagnosis Start Date Code Code Sys tem Radiculopathy, lumbosacral region 01/25/2025 SNOMED-CT Personal Care Team Section
--- OUTSIDE RECORDS SUMMARY | 2025-04-22 17:33 | XMS_ITS | Clinical Summary ---
Author Organization [facility] Address [address] [facility] [place] [address] Care Team Providers Care Reducing Salon Attendant Name Role Phone Lon Recio PA-C Primary Care Provider [phone] Source Comments [facility],non-owned Affiliates and Associated Physician Practices is amultiple site organization consisting of ambulatory clinics and hospital sitesin [place], [place], [place] and [place]. This disclosure is being madepursuant to the Care Everywhere program and may not contain all information available regarding this patient. Last updated 18.[facility] Allergies Active Allergy Reactions Criticality Noted Date [...] fluticasone propionate (FLONASE) 50 MCG/ACT nasal spray Tow 2 sprays into each nostril once daily [...] Last Done Comments COLOGUARD (AGES 45-75) - COLON CA SCREENING 1962 COLON MONITORING 1962 COLONOSCOPY [...] DIABETES 06/15/2020 DEPRESSION SCREENING 06/09/2024 COVID-19 VACCINE ( season) 2025 03/27/2022, 05/05/2021, 10/12/2020 INFLUENZA VACCINE (#1) 2025 4, 04/16/2023, 03/27/2022, Additional history exists Respiratory Syncytial Virus (RSV) Vaccine Pt: or [...] to complete this topic MENINGOCOCCAL (Group B) VACCINE SHARED DECISION-MAKING Aged Out No longer eligible based on patient's age to complete this topic MENINGOCOCCAL GROUPS A/C/Y/W VACCINE Aged Out No longer eligible based on patient's age to complete this topic Medical Devices Implanted Type Area Shading Painter Device Identifier Shelf Expiration Date Model / Serial / Lot Impl Inj 1ml Coaptite Syr Bulk Agnt - Sn/A Implanted:Qty: 1 on 03/29/2020 by Mando Welch III, MD at [facility] [employer] 12/13/2022 [id number] / N/A / [id number] Impl Inj 1ml Coaptite Syr Bulk Agnt - Sn/A Implanted:Qty: 1 on 03/29/2020 by Mando Welch III, MD at [facility] [employer] 12/13/2022 [id number] / N/A / [id number] Insurance MEDICAID [employer] [id number] Care Teams Reducing Salon Attendant Relationship Specialty Start Date End Date Lon Recio PA-C [address] [place] [id number] PCP - General Physician Collateral Specialist 02/03/20
--- OUTSIDE RECORDS SUMMARY | 2025-04-22 17:33 | XMS_ITS ---
Author Organization Unknown Address [address] [place] [phone] Phone Care Team Providers Care Research Program Assistant Name Role Phone MALIKA ODALYS Sims Attending [...] Code Code System PENICILLINS (CLASS) Rash (SNOMED-CT: 494627921), Itching (SNOMED-CT: 928430694), ABD pain (SNOMED-CT: 60705409), Diarrhea (SNOMED-CT: 90022043) Active [id number] SNOMED-CT CODEINE Hives (SNOMED-CT: 106677127) Active 2670 Rx[facility] BEE VENOM Rash (SNOMED-CT: 334713320), Swelling (SNOMED-CT: 61372374), Itching (SNOMED-CT: 551616176), Abdominal Pain (SNOMED-CT: null) Active 599113 RxNorm Plan of Treatment MG MAMM SCREEN BILAT 30 04/21/2024 NEW PATIENT 11/23/2024 MRI SHOULDER 11/30/2024 FOLLOW-UP 01/25/2025 FOLLOW-UP 03/08/2025 FOLLOW-UP 05/17/2025 Encounters Encounter Diagnosis Start Date Code Code Sys tem Radiculopathy, lumbosacral region 03/08/2025 SNOMED-CT Personal Care Team Section
--- OUTSIDE RECORDS SUMMARY | 2025-04-22 17:34 | XMS_ITS | Clinical Summary ---
Author Organization [facility] Address [address] [place] [id number] Care Team Providers Care Tax Processor Name Role Phone Lon Recio PA-C Primary Care Provider [phone] Social History Tobacco Use Types Packs/Day Years [...] Comments Blood Pressure 128/64 07/05/2015 9:47 AM ON SITE NURSE Pulse 94 04/13/2013 3:24 PM ON SITE NURSE Temperature 36.5 C (97.7 F) 04/13/2013 3:24 PM ON SITE NURSE Respiratory Rate 18 04/13/2013 3:24 PM ON SITE NURSE Oxygen Saturation - - Inhaled Oxygen Concentration - - Weight 77.1 kg (170 lb) 07/05/2015 9:47 AM ON SITE NURSE Height 177.8 cm (5' 10) 07/05/2015 9:47 AM ON SITE NURSE Body Mass Index 24.39 07/05/2015 9:47 AM ON SITE NURSE Plan of Treatment Health Maintenance Due Date [...] to complete this topic Insurance Care Teams Tax Processor Relationship Specialty Start Date End Date Lon Recio PA-C PCP - General PHYSICIAN EQUALIZING SAW OPERATOR 08/19/24
--- OUTSIDE RECORDS SUMMARY | 2025-04-22 17:34 | XMS_ITS | Data Portability ---
Author Organization [facility] Address [address] [place] [address] Care Team Providers Care Hostess Name Role Phone JIGAR TRINH Residential Sales Consultant Assessment No assessment recorded. Plan of Treatment Reminders Order Date Submit Date Provider Last Modified By Organization Details Last Modified Time Details Appointments None recorded. Lab CMP, serum or plasma 2024 025 [facility], [address] [place] [address], [address], 5 11:09:01 CBC w/ auto diff 2024 025 [facility], [address] [place] [address] [place], [place], [address], 5 11:09:04 microalbumi n/creatinin e, mass ratio, urine 2024 025 [facility], [address] [place] [address], [address], 5 11:08:58 lipid panel, serum 2024 025 [facility], [address] [place] [address], [facility] [address], [place], [address], 5 11:08:59 HbA1c (hemoglobin A1c), blood 2024 025 [facility], [address] [place] [address], [facility] [address], [place], [address], 11:09:02 Referral None recorded. Procedures None recorded. Surgeries None recorded. Imaging XR, cervical spine, 2 or 3 view [address] [facility], [address] [place], [address], 5 15:07:12 Medication Orders tramadol 50 mg tablet 2024 025 [place] - [id number], [address] [place], [address], 5 17:08:28 prednisone 20 mg tablet 2024 025 [email or web address] [address] [place] - [id number], [address] [place], [address], 5 14:39:19 tramadol 50 mg tablet 2024 025 [place] - [id number], [address] [place], [address], 5 14:53:23 metoprolol succinate ER 100 mg tablet,exte nded release 24 hr 2024 025 [place] - [id number], [address] [place], [address], 5 15:38:24 cyclobenzap rine 10 mg tablet 2024 025 [place] - [id number], [address] [place], [address], 5 14:38:55 pregabalin 75 mg capsule 2024 025 [place] - [id number], [address] [place], [address], 5 13:56:33 Advair Diskus 100 mcg-50 mcg/dose powder for inhalation 2024 025 [place] [id number], [address] [place], [address], 5 14:30:08 albuterol sulfate HFA 90 mcg/actuati on aerosol inhaler 2024 025 [place] - [id number], [address] [place], [address], 5 15:41:54 chlorthalid one 50 mg tablet 2024 025 [place] - [id number], [address] [place], [address], 5 15:41:55 losartan 100 mg tablet 2024 025 [place] - [id number], [address] [place], [address], 5 14:54:11 metoprolol succinate ER 50 mg tablet,exte nded release 24 hr 2024 025 [place] - [id number], [address] [place], [address], 5 13:19:46 Patient TargetsNo targets recorded. Patient Instructions Encounter Date Encounter Id Patient Instructions Last Modified By Organization Details Last Modified Time 04/21/2024 [id number] A healthy lifestyle: care instructions Not available 04/21/2024 14:12:47 05/11/2024 [id number] A healthy lifestyle: care instructions Not available 05/12/2024 08:50:29 07/08/2024 [id number] Quitting Tobacco : Care Instructions Not available 07/08/2024 14:16:12 Preventing Depression From Coming Back: Care Instructions Not available 07/08/2024 14:16:12 08/10/2024 [id number] Quitting Tobacco : Care Instructions Not available 08/10/2024 13:35:08 Preventing Depression From Coming Back: Care Instructions Not available 08/10/2024 13:35:08 A healthy lifestyle: care instructions Not available 08/10/2024 13:35:08 08/17/2024 [id number] Quitting Tobacco : Care Instructions Not available 08/17/2024 15:09:09 Reason for Referral None Reported. Results Created Date Observation Date Name Description Value Unit Range Abnormal Flag Note LastModifiedBy Organization Detail LastModifiedTime 04/16/20 24 04/16/2024 HbA1c (hemo globi n A1c), blood HbA1c 5.3 Not Available In-Office Order Internal Use Only DO Not Attach Compendium DO Not Attach Compendium, Do Not Delete/merge, [id number] 04/15/2024 14:55:02 07/08/1907/09/2024 ALBUM IN/CR EAT RATIO , ZENAO M UR creatinine, urine 61.1 mg/dL notest ab. Not Available [facility] ([facility]) [address] [place], [address], 07/09/2024 11:08:58 07/08/19 25 07/09/2024 ALBUM IN/CR EAT RATIO , RANDO M UR albumin, urine 317.1 ug/mL notest ab. Not Available [facility] ([facility]) [address] [place], [address], 07/09/2024 11:08:58 07/08/19 25 07/09/2024 ALBUM IN/CR EAT RATIO , RANDO M UR alb/creat ratio 519 mg/g_ creat 0-29 above high normal Ann l: 0 - 29 Moder ately incre ased: 30 - 300 Sever juhi incre ased: >300 Not Available [facility] ([facility]) [address] [place], [address], 07/09/2024 11:08:58 07/08/19 25 07/09/2024 LIPID PANEL cholesterol, total 163 mg/dL 100-19 9 Not Available [facility] ([facility]) [address] [place], [address], 07/09/2024 11:08:59 07/08/19 25 07/09/2024 LIPID PANEL triglyceride s 70 mg/dL 0-149 Not Available [facility] ([facility]) [address] [place], [address], 07/09/2024 11:08:59 07/08/19 25 07/09/2024 LIPID PANEL HDL cholesterol 63 mg/dL >39 Not Available [facility]) [address] [place], [address], 07/09/2024 11:08:59 07/08/19 25 07/09/2024 LIPID PANEL VLDL cholesterol chepe 14 mg/dL 5-40 Not Available [facility] ([facility]) [address] [place], [address], 07/09/2024 11:08:59 07/08/19 25 07/09/2024 LIPID PANEL LDL chol calc ([facility]) 86 mg/dL 0-99 Not Available [facility] ([facility]) [address] [place], [address], 07/09/2024 11:08:59 07/08/19 25 07/09/2024 COMP. METAB OLIC PANEL (14) glucose 126 mg/dL 70-99 above high normal Not Available [facility] ([facility]) [address] [place], [address], 07/09/2024 11:09:01 07/08/19 25 07/09/2024 COMP. METAB OLIC PANEL (14) BUN 39 mg/dL 8-27 above high normal Not Available [facility] ([facility]) [address] [facility] [place], [address], 07/09/2024 11:09:01 07/08/19 25 07/09/2024 COMP. METAB OLIC PANEL (14) creatinine 1.96 mg/dL 0.57-1 .00 above high normal Not Available [facility] ([facility]) [address] [place], [address], 07/09/2024 11:09:01 07/08/19 25 07/09/2024 COMP. METAB OLIC PANEL (14) eGFR 29 mL/mi n/1.7 3 >59 below low normal Not Available [facility] ([facility]) [address] [place], [address], 07/09/2024 11:09:01 07/08/19 25 07/09/2024 COMP. METAB OLIC PANEL (14) BUN/creatini ne ratio 20 12-28 Not Available [facility] ([facility]) [address], [place], [address], 07/09/2024 11:09:01 07/08/19 25 07/09/2024 COMP. METAB OLIC PANEL (14) sodium 138 mmol/ L 134-14 4 Not Available [facility] ([facility]) [address] [place], [address], 07/09/2024 11:09:01 07/08/19 25 07/09/2024 COMP. METAB OLIC PANEL (14) potassium 4.8 mmol/ L 3.5-5. 2 Not Available [facility] ([place] [facility]) [address] [place], [address], 07/09/2024 11:09:01 07/08/19 25 07/09/2024 COMP. METAB OLIC PANEL (14) chloride 102 mmol/ L 96-106 Not Available [facility] ([facility]) [address] [place], [address], 07/09/2024 11:09:01 07/08/19 25 07/09/2024 COMP. METAB OLIC PANEL (14) carbon dioxide, total 22 mmol/ L Not Available [facility] ([facility]) [address] [place], [address], 07/09/2024 11:09:01 07/08/19 25 07/09/2024 COMP. METAB OLIC PANEL (14) calcium 9.8 mg/dL 8.7-10 .3 Not Available [facility] ([facility]) [address] [place], [address], 07/09/2024 11:09:01 07/08/19 25 07/09/2024 COMP. METAB OLIC PANEL (14) protein, total 6.9 g/dL 6.0-8. 5 Not Available [facility] ([facility]) [address] [place], [address], 07/09/2024 11:09:01 07/08/19 25 07/09/2024 COMP. METAB OLIC PANEL (14) albumin 4.3 g/dL 3.9-4. 9 Not Available [facility] ([facility]) [address] [place], [address], 07/09/2024 11:09:01 07/08/19 25 07/09/2024 COMP. METAB OLIC PANEL (14) globulin, total 2.6 g/dL 1.5-4. 5 Not Available [facility] ([facility]) [address] [place], [address], 07/09/2024 11:09:01 07/08/19 25 07/09/2024 COMP. METAB OLIC PANEL (14) bilirubin, total 0.3 mg/dL 0.0-1. 2 Not Available [facility] ([facility]) [address] [place], [address], 07/09/2024 11:09:01 07/08/19 25 07/09/2024 COMP. METAB OLIC PANEL (14) alkaline phosphatase 93 IU/L 44-121 Not Available [facility] ([facility]) [address] [place], [address], 07/09/2024 11:09:01 07/08/19 25 07/09/2024 COMP. METAB OLIC PANEL (14) AST (SGOT) 17 IU/L 0-40 Not Available [facility] ([facility]) [address] [place], [address], 07/09/2024 11:09:01 07/08/19 25 07/09/2024 COMP. METAB OLIC PANEL (14) ALT (SGPT) 11 IU/L 0-32 Not Available [facility] ([facility]) [address] [place], [address], 07/09/2024 11:09:01 07/08/19 25 07/09/2024 HEMOG LOBIN A1C hemoglobin A1C 5.5 % 4.8-5. 6 Predi abete s: 5.7 - 6.4 Diabe natalia: >6.4 Glyce olivier contr ol for adult s with diabe natalia: <7.0 Not Available [facility] ([facility]) [address] [place], [address], 07/09/2024 11:09:02 07/08/19 25 07/09/2024 CBC WITH DIFFE RENTI AL/PL ATELE T WBC 9.6 x10e3 /uL 3.4-10 .8 Not Available [facility] ([facility]) [address] [place], [address], 07/09/2024 11:09:04 07/08/19 25 07/09/2024 CBC WITH DIFFE RENTI AL/PL ATELE T RBC 3.88 x10e6 /uL 3.77-5 .28 Not Available [facility] ([facility]) [address] [place], [address], 07/09/2024 11:09:04 07/08/19 25 07/09/2024 CBC WITH DIFFE RENTI AL/PL ATELE T hemoglobin 11.8 g/dL 11.1-1 5.9 Not Available [facility] ([facility]) [address] [facility], [place], [address], 07/09/2024 11:09:04 07/08/19 25 07/09/2024 CBC WITH DIFFE RENTI AL/PL ATELE T hematocrit 36.0 % 34.0-4 6.6 Not Available [facility] ([facility]) [address] [place], [address], 07/09/2024 11:09:04 07/08/19 25 07/09/2024 CBC WITH DIFFE RENTI AL/PL ATELE T MCV 93 fL 79-97 Not Available [facility] ([facility]) [address] [place], [address], 07/09/2024 11:09:04 07/08/19 25 07/09/2024 CBC WITH DIFFE RENTI AL/PL ATELE T MCH 30.4 pg 26.6-3 3.0 Not Available [facility] ([facility]) [address] [place], [address], 07/09/2024 11:09:04 07/08/19 25 07/09/2024 CBC WITH DIFFE RENTI AL/PL ATELE T MCHC 32.8 g/dL 31.5-3 5.7 Not Available [facility] ([facility]) [address] [place], [address], 07/09/2024 11:09:04 07/08/19 25 07/09/2024 CBC WITH DIFFE RENTI AL/PL ATELE T RDW 12.4 % 11.7-1 5.4 Not Available [facility] ([facility]) [address] [place], [address], 07/09/2024 11:09:04 07/08/19 25 07/09/2024 CBC WITH DIFFE RENTI AL/PL ATELE T platelets 361 x10e3 /uL 150-45 0 Not Available [facility] ([facility]) [address] [facility], [place], [address], 07/09/2024 11:09:04 07/08/19 25 07/09/2024 CBC WITH DIFFE RENTI AL/PL ATELE T neutrophils 47 % notest ab. Not Available [facility] ([facility]) [address] [facility], [place], [address], 07/09/2024 11:09:04 07/08/19 25 07/09/2024 CBC WITH DIFFE RENTI AL/PL ATELE T lymphs 41 % notest ab. Not Available [facility] ([facility]) [address] [facility], [place], [address], 07/09/2024 11:09:04 07/08/19 25 07/09/2024 CBC WITH DIFFE RENTI AL/PL ATELE T monocytes 9 % notest ab. Not Available [facility] ([facility]) [address] [facility], [place], [address], 07/09/2024 11:09:04 07/08/19 25 07/09/2024 CBC WITH DIFFE RENTI AL/PL ATELE T eos 2 % notest ab. Not Available [facility] ([facility]) [address] [facility], [place], [address], 07/09/2024 11:09:04 07/08/19 25 07/09/2024 CBC WITH DIFFE RENTI AL/PL ATELE T basos 1 % notest ab. Not Available [facility] ([facility]) [address] [facility], [place], [address], 07/09/2024 11:09:04 07/08/19 25 07/09/2024 CBC WITH DIFFE RENTI AL/PL ATELE T neutrophils (absolute) 4.5 x10e3 /uL 1.4-7. 0 Not Available [facility] ([facility]) [address] [place], [address], 07/09/2024 11:09:04 07/08/19 25 07/09/2024 CBC WITH DIFFE RENTI AL/PL ATELE T lymphs (absolute) 3.9 x10e3 /uL 0.7-3. 1 above high normal Not Available [facility] ([facility]) [address] [facility], [place], [address], 07/09/2024 11:09:04 07/08/19 25 07/09/2024 CBC WITH DIFFE RENTI AL/PL ATELE T monocytes(ab solute) 0.9 x10e3 /uL 0.1-0. 9 Not Available [facility] ([facility]) [address] [facility], [place], [address], 07/09/2024 11:09:04 07/08/19 25 07/09/2024 CBC WITH DIFFE RENTI AL/PL ATELE T eos (absolute) 0.2 x10e3 /uL 0.0-0. 4 Not Available [facility] ([facility]) [address] [facility], [place], [address], 07/09/2024 11:09:04 07/08/19 25 07/09/2024 CBC WITH DIFFE RENTI AL/PL ATELE T baso (absolute) 0.1 x10e3 /uL 0.0-0. 2 Not Available [facility] ([facility]) [address] [place], [address], 07/09/2024 11:09:04 07/08/19 25 07/09/2024 CBC WITH DIFFE RENTI AL/PL ATELE T immature granulocytes 0 % notest ab. Not Available [facility] ([facility]) [address] [place], [address], 07/09/2024 11:09:04 07/08/19 25 07/09/2024 CBC WITH DIFFE RENTI AL/PL ATELE T immature grans (abs) 0.0 x10e3 /uL 0.0-0. 1 Not Available [facility] ([facility]) [address] [facility], [place], [address], 07/09/2024 11:09:04 08/20/19 25 08/20/2024 Eosin ophil s/100 leuko cytes in Urine sedim ent by Manua l count eosinophils/ 100 leukocytes in urine sediment by manual count high: 1% abnormal EOSIN OPHIL , URINE >5 (A) <1 % 08/20 12:58 PM CDT [facility] Not Available Not Available 08/25/2024 14:04:24 08/20/19 25 08/20/2024 Eosin ophil s/100 leuko cytes in Urine sedim ent by Manua l count interpretati on and review of laboratory results Abnorm al Not Available Not Available 14:04:24 08/20/19 25 08/19/2024 Urina lysis compl ete panel - Urine color of urine STRAW COLOR (U) STRAW 08/19 4:00 PM CDT [facility] Not Available Not Available 08/25/2024 14:04:24 08/20/19 25 08/19/2024 Urina lysis compl ete panel - Urine clarity of urine CLEAR TRANS PAREN CY CLEAR 08/19 4:00 PM CDT [facility] Not Available Not Available 08/25/2024 14:04:24 08/20/19 25 08/19/2024 Urina lysis compl ete panel - Urine specific gravity of urine 1.02 low: 1high: 1.025 SPECI FIC GRAVI TY (U) 1.020 1.000 - 1.025 08/19 4:00 PM CDT [facility] Not Available Not Available 08/25/2024 14:04:24 08/20/19 25 08/19/2024 Urina lysis compl ete panel - Urine pH of urine 7 low: 5high: 8 U PH 7.0 5.0 - 8.0 08/19 4:00 PM [facility] Not Available Not Available 08/25/2024 14:04:24 08/20/19 25 08/19/2024 Urina lysis compl ete panel - Urine leukocyte esterase [presence] in urine by test strip 3+ text: negati ve abnormal LEUKO CYTES (U) 3+ (A) NEGAT PEACE 08/19 4:00 PM [facility] Not Available Not Available 08/25/2024 14:04:24 08/20/19 25 08/19/2024 Urina lysis compl ete panel - Urine nitrite [presence] in urine by test strip NEGATI VE text: negati ve NITRI NATALIA NEGAT PEACE NEGAT PEACE 08/19 4:00 PM [facility] Not Available Not Available 08/25/2024 14:04:24 08/20/19 25 08/19/2024 Urina lysis compl ete panel - Urine protein [presence] in urine by automated test strip 2+ text: negati ve abnormal PROTE IN RANDO M (U) 2+ (A) NEGAT PEACE 08/19 4:00 PM [facility] Not Available Not Available 08/25/2024 14:04:24 08/20/19 25 08/19/2024 Urina lysis compl ete panel - Urine glucose [presence] in urine by automated test strip NEGATI VE text: negati ve GLUCO SE (U) NEGAT PEACE NEGAT PEACE 08/19 4:00 PM [facility] Not Available Not Available 08/25/2024 14:04:24 08/20/19 25 08/19/2024 Urina lysis compl ete panel - Urine ketones [presence] in urine by automated test strip NEGATI VE text: negati ve KETON ES MG/DL (U) NEGAT PEACE NEGAT PEACE 08/19 4:00 PM [facility] Not Available Not Available 08/25/2024 14:04:24 08/20/19 25 08/19/2024 Urina lysis compl ete panel - Urine urobilinogen [units/volum e] in urine by test strip 0.2 text: <1.0 eu/dL UROBI LINOG EN 0.2 <1.0 EU/DL 08/19 4:00 PM CDT [facility] Not Available Not Available 08/25/2024 14:04:24 08/20/19 25 08/19/2024 Urina lysis compl ete panel - Urine bilirubin.to keon [presence] in urine by automated test strip NEGATI VE text: negati ve BILIR UBIN (U) NEGAT PEACE NEGAT PEACE 08/19 4:00 PM CDT [facility] Not Available Not Available 08/25/2024 14:04:24 08/20/19 25 08/19/2024 Urina lysis compl ete panel - Urine erythrocytes [#/volume] in urine by automated test strip 2+ text: negati ve abnormal BLOOD (U) 2+ (A) NEGAT PEACE 08/19 4:00 PM CDT [facility] Not Available Not Available 08/25/2024 14:04:24 08/20/19 25 08/19/2024 Urina lysis compl ete panel - Urine leukocytes [#/area] in urine sediment by microscopy high power field 50-100 text: 0 - 5 /hpf abnormal WBC/H PF 50-10 0 (A) 0 - 5 /HPF 08/19 4:00 PM CDT [facility] Not Available Not Available 08/25/2024 14:04:24 08/20/19 25 08/19/2024 Urina lysis compl ete panel - Urine erythrocytes [#/area] in urine sediment by microscopy high power field 10-20 text: 0 - 5 /hpf abnormal RBC/H PF 10-20 (A) 0 - 5 /HPF 08/19 [facility]:00 [facility] Not Available Not Available 08/25/2024 14:04:24 08/20/19 25 08/19/2024 Urina lysis compl ete panel - Urine epithelial casts [#/area] in urine sediment by microscopy low power field text: /lpf EPI/L PF 5-10 /LPF 08/19 4:00 PM [facility] Not Available Not Available 08/25/2024 14:04:24 08/20/19 25 08/19/2024 Urina lysis compl ete panel - Urine bacteria [#/area] in urine sediment by microscopy high power field 1+ text: /hpf BACTE EDI (U) 1+ /HPF 08/19 4:00 PM [facility] Not Available Not Available 08/25/2024 14:04:24 08/20/19 25 08/19/2024 Urina lysis compl ete panel - Urine interpretati on and review of laboratory results Abnorm al Not Available Not Available 14:04:24 08/20/19 25 08/19/2024 ALBUM IN CREAT ININE URINE RANDO M microalbumin [mass/volume ] in urine 18 text: mg/dL ALBUM IN (U) 18.0 MG/DL 08/19 4:16 PM [facility] Not Available Not Available 08/25/2024 14:04:24 08/20/19 25 08/19/2024 ALBUM IN CREAT ININE URINE RANDO M creatinine [mass/volume ] in urine 39 text: mg/dL CREAT ININE RANDO M (U) 39.0 MG/DL 08/19 4:16 PM [facility] Not Available Not Available 08/25/2024 14:04:24 08/20/19 25 08/19/2024 ALBUM IN CREAT ININE URINE RANDO M microalbumin /creatinine [mass ratio] in urine 460.9 mg/g high: 30mg/g high ALBUM IN/CR EAT RATIO 460.9 (H) <30 MG/G 08/19 4:16 PM CDT [facility] Not Available Not Available 08/25/2024 14:04:24 08/20/19 25 08/19/2024 ALBUM IN CREAT ININE URINE RANDO M interpretati on and review of laboratory results Abnorm al Not Available Not Available 14:04:24 08/20/19 25 08/26/2024 Neutr ophil cytop lasmi c Ab [Pres ence] in Serum neutrophil cytoplasmic Ab [presence] in serum Negati ve text: negati ve ANCA SCREE N Negat peace Negat peace 08/26 8:27 AM CDT [facility] Not Available Not Available 08/26/2024 14:09:39 08/20/19 25 08/26/2024 Neutr ophil cytop lasmi c Ab [Pres ence] in Serum myeloperoxid ase Ab [units/volum e] in serum by immunoassay text: <1.0 ai MYELO PEROX IDASE AB <1.0 <1.0 AI 08/26 8:27 AM CDT [facility] Not Available Not Available 08/26/2024 14:09:39 08/20/19 25 08/26/2024 Neutr ophil cytop lasmi c Ab [Pres ence] in Serum proteinase 3 Ab [units/volum e] in serum by immunoassay text: <1.0 ai PROTE INASE -3 AB <1.0 <1.0 AI 08/26 8:27 AM CDT [facility] Not Available Not Available 08/26/2024 14:09:39 08/20/19 25 08/19/2024 Compl ement C4 [Pres ence] in Serum or Plasm a complement C4 [presence] in serum or plasma 26.9 text: 10.0 - 40.0 mg/dL COMPL EMENT C4 26.9 10.0 - 40.0 MG/DL 08/19 6:36 PM CDT [facility] Not Available Not Available 08/25/2024 14:04:24 08/20/19 25 08/19/2024 Compl ement C3 [Pres ence] in Serum or Plasm a complement C3 [presence] in serum or plasma 101 text: 90.0 - 180.0 mg/dL COMPL EMENT C3 101.0 90.0 - 180.0 MG/DL 08/19 6:36 PM CDT [facility] Not Available Not Available 08/25/2024 14:04:24 08/20/19 25 08/23/2024 Nucle ar Ab [Tite r] in Serum by Immun ofluo resce nce nuclear Ab [presence] in serum 0.3 ARTUR 0.3 08/23 12:10 PM CDT [facility] Not Available Not Available 08/25/2024 14:04:24 08/20/19 25 08/23/2024 Nucle ar Ab [Tite r] in Serum by Immun ofluo resce nce DNA double strand Ab [presence] in serum 0.9 text: IU/mL DNA (DS) ANTIB ANITRA 0.9 IU/ML 08/23 12:10 PM CDT [facility] Not Available Not Available 08/25/2024 14:04:24 08/20/19 25 08/19/2024 CBC W Auto Diffe renti al panel - Blood leukocytes [#/volume] in blood by automated count 11.83 text: 4.00 - 10.80 x10'3/ uL high WBC 11.83 (H) 4.00 - 10.80 x10'3 /uL 08/19 3:33 PM CDT [facility] Not Available Not Available 08/25/2024 14:04:24 08/20/19 25 08/19/2024 CBC W Auto Diffe renti al panel - Blood erythrocytes [#/volume] in blood by automated count 3.68 text: 4.10 - 5.40 x10'6/ uL low RBC 3.68 (L) 4.10 - 5.40 x10'6 /uL 08/19 3:33 PM CDT [facility] Not Available Not Available 08/25/2024 14:04:24 08/20/19 25 08/19/2024 CBC W Auto Diffe renti al panel - Blood hemoglobin [mass/volume ] in blood 11 text: 12.0 - 16.0 g/dL low HGB 11.0 (L) 12.0 - 16.0 G/DL 08/19 3:33 PM [facility] Not Available Not Available 08/25/2024 14:04:24 08/20/19 25 08/19/2024 CBC W Auto Diffe renti al panel - Blood hematocrit [volume fraction] of blood 33.7 % low: 36%hig h: 47% low HCT 33.7 (L) 36.0 - 47.0 % 08/19 3:33 PM CDT [facility] Not Available Not Available 08/25/2024 14:04:24 08/20/19 25 08/19/2024 CBC W Auto Diffe renti al panel - Blood MCV [entitic volume] 91.6 text: 78.0 - 100.0 fL MCV 91.6 78.0 - 100.0 FL 08/19 3:33 PM [facility] Not Available Not Available 08/25/2024 14:04:24 08/20/19 25 08/19/2024 CBC W Auto Diffe renti al panel - Blood MCH [entitic mass] 29.9 pg low: 27pghi gh: 31pg MCH 29.9 27.0 - 31.0 PG 08/19 3:33 PM [facility] Not Available Not Available 08/25/2024 14:04:24 08/20/19 25 08/19/2024 CBC W Auto Diffe renti al panel - Blood MCHC [mass/volume ] 32.6 text: 33.0 - 36.0 g/dL low MCHC 32.6 (L) 33.0 - 36.0 G/DL 08/19 3:33 PM [address] [facility] Not Available Not Available 08/25/2024 14:04:24 08/20/19 25 08/19/2024 CBC W Auto Diffe renti al panel - Blood erythrocyte distribution width [entitic volume] by automated count 12.6 % low: 11.5%h igh: 14.5% RDW 12.6 11.5 - 14.5 % 08/19 3:33 PM CDT [facility] Not Available Not Available 08/25/2024 14:04:24 08/20/19 25 08/19/2024 CBC W Auto Diffe renti al panel - Blood platelets [#/volume] in blood 295 text: 150 - 350 x10'3/ uL PLT 295 150 - 350 x10'3 /uL 08/19 3:33 PM CDT [facility] Not Available Not Available 08/25/2024 14:04:24 08/20/19 25 08/19/2024 CBC W Auto Diffe renti al panel - Blood platelet mean volume [entitic volume] in blood 9.4 text: 7.4 - 10.4 fL MPV 9.4 7.4 - 10.4 FL 08/19 3:33 PM CDT [facility] Not Available Not Available 08/25/2024 14:04:24 08/20/19 25 08/19/2024 CBC W Auto Diffe renti al panel - Blood service comment NORMAL REFERE NCE RANGE NOT ESTABL ISHED FOR THE PROPOR TIONAL LEUKOC YTE DIFFER ENTIAL . CBC COMME NT ANN L REFER ENCE RANGE NOT ESTAB LISHE D FOR THE PROPO RTION AL LEUKO CYTE DIFFE RENTI AL. 08/19 3:33 PM CDT [facility] Not Available Not Available 08/25/2024 14:04:24 08/20/19 25 08/19/2024 CBC W Auto Diffe renti al panel - Blood neutrophils/ 100 leukocytes in blood by automated count 42.8 % NEUTR OPHIL S % 42.8 % 08/19 3:33 PM CDT [facility] Not Available Not Available 08/25/2024 14:04:24 08/20/19 25 08/19/2024 CBC W Auto Diffe renti al panel - Blood lymphocytes/ 100 leukocytes in blood by automated count 43.4 % LYMPH OCYTE S % 43.4 % 08/19 3:33 PM CDT [facility] Not Available Not Available 08/25/2024 14:04:24 08/20/19 25 08/19/2024 CBC W Auto Diffe renti al panel - Blood monocytes/10 0 leukocytes in blood by automated count 10.4 % MONOC YTES % 10.4 % 08/19 3:33 PM CDT [facility] Not Available Not Available 08/25/2024 14:04:24 08/20/19 25 08/19/2024 CBC W Auto Diffe renti al panel - Blood eosinophils/ 100 leukocytes in blood by automated count 2.5 % EOSIN OPHIL S % 2.5 % 08/19 3:33 PM CDT [facility] Not Available Not Available 08/25/2024 14:04:24 08/20/19 25 08/19/2024 CBC W Auto Diffe renti al panel - Blood basophils/10 0 leukocytes in blood by automated count 0.5 % BASOP HILS % 0.5 % 08/19 3:33 PM CDT [facility] Not Available Not Available 08/25/2024 14:04:24 08/20/19 25 08/19/2024 CBC W Auto Diffe renti al panel - Blood immature granulocytes /100 leukocytes in blood by automated count 0.4 % IMMAT URE GRANS % 0.4 % 08/19 3:33 PM CDT [facility] Not Available Not Available 08/25/2024 14:04:24 08/20/19 25 08/19/2024 CBC W Auto Diffe renti al panel - Blood nucleated erythrocytes /100 leukocytes [ratio] in blood 0 % NRBC % 0.0 % 08/19 3:33 PM CDT [facility] Not Available Not Available 08/25/2024 14:04:24 08/20/19 25 08/19/2024 CBC W Auto Diffe renti al panel - Blood neutrophils [#/volume] in blood 5.06 text: 1.60 - 8.30 x10'3/ uL ABS. NEUTR OPHIL S 5.06 1.60 - 8.30 x10'3 /uL 08/19 3:33 PM CDT [facility] Not Available Not Available 08/25/2024 14:04:24 08/20/19 25 08/19/2024 CBC W Auto Diffe renti al panel - Blood lymphocytes [#/volume] in blood 5.14 text: 0.80 - 4.70 x10'3/ uL high ABS. LYMPH OCYTE S 5.14 (H) 0.80 - 4.70 x10'3 /uL 08/19 3:33 PM CDT [facility] Not Available Not Available 08/25/2024 14:04:24 08/20/19 25 08/19/2024 CBC W Auto Diffe renti al panel - Blood monocytes [#/volume] in blood 1.23 text: 0.00 - 1.50 x10'3/ uL ABS. MONOC YTES 1.23 0.00 - 1.50 x10'3 /uL 08/19 3:33 PM CDT [facility] Not Available Not Available 08/25/2024 14:04:24 08/20/19 25 08/19/2024 CBC W Auto Diffe renti al panel - Blood eosinophils [#/volume] in blood 0.29 text: 0.00 - 0.40 x10'3/ uL ABS. EOSIN OPHIL S 0.29 0.00 - 0.40 x10'3 /uL 08/19 3:33 PM CDT [facility] Not Available Not Available 08/25/2024 14:04:24 08/20/19 25 08/19/2024 CBC W Auto Diffe renti al panel - Blood basophils [#/volume] in blood 0.06 text: 0.00 - 0.20 x10'3/ uL ABS. BASOP HILS 0.06 0.00 - 0.20 x10'3 /uL 08/19 3:33 PM CDT [facility] Not Available Not Available 08/25/2024 14:04:24 08/20/19 25 08/19/2024 CBC W Auto Diffe renti al panel - Blood immature granulocytes [#/volume] in blood 0.05 text: 0.00 - 0.03 x10'3/ uL high ABS. IMMAT URE GRANU LOCYT ES 0.05 (H) 0.00 - 0.03 x10'3 /uL 08/19 3:33 PM CDT [facility] Not Available Not Available 08/25/2024 14:04:24 08/20/19 25 08/19/2024 CBC W Auto Diffe renti al panel - Blood nucleated erythrocytes [#/volume] in blood 0 text: 0.00 - 0.01 x10'3/ uL ABS. NUCLE ATED RBC'S 0.00 0.00 - 0.01 x10'3 /uL 08/19 3:33 PM CDT [facility] Not Available Not Available 08/25/2024 14:04:24 08/20/19 25 08/19/2024 CBC W Auto Diffe renti al panel - Blood interpretati on and review of laboratory results Abnorm al Not Available Not Available 14:04:24 08/20/19 25 08/19/2024 Renal funct ion 1999 panel - Serum or Plasm a sodium [moles/volum e] in serum or plasma 136 text: 136 - 145 mmol/L SODIU M S/P/B 136 136 - 145 MMOL/ L 08/19 3:52 PM CDT [facility] Not Available Not Available 08/25/2024 14:04:24 08/20/19 25 08/19/2024 Renal funct ion 1999 panel - Serum or Plasm a potassium [moles/volum e] in serum or plasma 4.3 text: 3.5 - 5.1 mmol/L POTAS SIUM S/P/B 4.3 3.5 - 5.1 MMOL/ L 08/19 3:52 PM CDT [facility] Not Available Not Available 08/25/2024 14:04:24 08/20/19 25 08/19/2024 Renal funct ion 1999 panel - Serum or Plasm a chloride [moles/volum e] in serum or plasma 101 text: 98 - 107 mmol/L CHLOR YOKASTA S/P/B 101 98 - 107 MMOL/ L 08/19 3:52 PM CDT [facility] Not Available Not Available 08/25/2024 14:04:24 08/20/19 25 08/19/2024 Renal funct ion 1999 panel - Serum or Plasm a carbon dioxide, total [moles/volum e] in serum or plasma 30.4 text: 21.0 - 32.0 mmol/L CO2 30.4 21.0 - 32.0 MMOL/ L 08/19 3:52 PM CDT [facility] Not Available Not Available 08/25/2024 14:04:24 08/20/19 25 08/19/2024 Renal funct ion 1999 panel - Serum or Plasm a glucose [mass/volume ] in serum or plasma 74 text: 70 - 99 mg/dL GLUCO SE 74 70 - 99 MG/DL 08/19 3:52 PM CDT [facility] Not Available Not Available 08/25/2024 14:04:24 08/20/19 25 08/19/2024 Renal funct ion 1999 panel - Serum or Plasm a urea nitrogen [mass/volume ] in serum or plasma 24 text: 6 - 24 mg/dL BUN 24 6 - 24 MG/DL 08/19 3:52 PM CDT [facility] Not Available Not Available 08/25/2024 14:04:24 08/20/19 25 08/19/2024 Renal funct ion 1999 panel - Serum or Plasm a creatinine [mass/volume ] in serum or plasma 1.86 text: 0.55 - 1.02 mg/dL high CREAT ININE S/P/B 1.86 (H) 0.55 - 1.02 MG/DL 08/19 3:52 PM CDT [facility] Not Available Not Available 08/25/2024 14:04:24 08/20/19 25 08/19/2024 Renal funct ion 1999 panel - Serum or Plasm a calcium [mass/volume ] in serum or plasma 9.3 text: 8.4 - 10.5 mg/dL CALCI UM S/P/B 9.3 8.4 - 10.5 MG/DL 03/13 /2025 3:52 PM CDT [facility] Not Available Not Available 08/25/2024 14:04:24 08/20/19 25 08/19/2024 Renal funct ion 2000 panel - Serum or Plasm a albumin [mass/volume ] in serum or plasma 3.3 text: 3.4 - 5.0 g/dL low ALBUM IN S/P/B 3.3 (L) 3.4 - 5.0 G/DL 08/19 3:52 PM CDT [facility] Not Available Not Available 08/25/2024 14:04:24 08/20/19 25 08/19/2024 Renal funct ion 2000 panel - Serum or Plasm a phosphate [mass/volume ] in serum or plasma 3.2 text: 2.6 - 4.7 mg/dL PHOSP HORUS 3.2 2.6 - 4.7 MG/DL 08/19 3:52 PM CDT [facility] Not Available Not Available 08/25/2024 14:04:24 08/20/19 25 08/19/2024 Renal funct ion 2000 panel - Serum or Plasm a anion gap in serum or plasma 4.6 text: 5.0 - 15.0 mmol/L low ANION GAP 4.6 (L) 5.0 - 15.0 MMOL/ L 08/19 3:52 PM CDT [facility] Not Available Not Available 08/25/2024 14:04:24 08/20/19 25 08/19/2024 Renal funct ion 2000 panel - Serum or Plasm a osmolality of serum or plasma by calculation 285 text: mOsm/k g OSMOL ALITY (CALC ) 285 MOSM/ KG 08/19 3:52 PM CDT [facility] Not Available Not Available 08/25/2024 14:04:24 08/20/19 25 08/19/2024 Renal funct ion 2000 panel - Serum or Plasm a glomerular filtration rate/1.73 sq M.predicted [volume rate/area] in serum, plasma or blood by creatinine-b ased formula (CKD-epi 2021) 30 text: >89 mL/min /1.73 M2 low GFR ESTIM ATE 30 (L) >89 ML/NH N/1.7 3 M2 08/19 3:52 PM CDT [facility] Not Available Not Available 08/25/2024 14:04:24 08/20/19 25 08/19/2024 Renal funct ion 2000 panel - Serum or Plasm a GFR notes GFR REFERE NCES: GFR NOTES GFR REFER ENCES : 08/19 3:52 PM CDT [facility] Not Available Not Available 08/25/2024 14:04:24 08/20/19 25 08/19/2024 Renal funct ion 2000 panel - Serum or Plasm a interpretati on and review of laboratory results Abnorm al Not Available Not Available 14:04:24 04/22/20 24 04/21/2024 MAMMO , scree keith, digit al, bilat eral No observ ation record ed. [facility] [address] [place], [address], 04/22/2024 12:23:31 07/30/19 25 07/27/2024 XR, cervi chepe spine , 2 or 3 view No observ ation record ed. [facility] [address] [place], [address], 08/02/2024 08:56:54 08/23/19 25 08/18/2024 US, kidne y No observ ation record ed. [facility] [address] [place], [address], 08/23/2024 10:36:29 08/25/19 25 08/23/2024 MRI, cervi chepe spine , w/o contr ast No observ ation record ed. [facility] Scheduling [address] [place], [address], 08/26/2024 14:11:08 12/02/19 25 11/30/2024 MRI, shoul yannick, w/o contr ast No observ ation record ed. [address], [address], 12/01/2024 13:16:17 Result Notes None recorded. Problems Name Problem SNOMED Code Status Onset Date Resolution Date Notes Provider Name and Address Organization Details Recorded Time Low back pain 708573806 Active Not Available [facility] 3 12:19:17 Lumbar radiculopa thy 737721922 Active Not Available [facility] 3 12:19:16 Diabetic peripheral neuropathy 366108781 Active Not Available [facility] 3 12:19:17 Acute sinusitis 33428023 Completed 03/15/2019 Lon Recio PA-C Attn: Accounting ,[address] [place], [address] , [place] [facility] 14:42:45 Pneumonia 734836075 Completed 03/15/2019 Lon Recio PA-C Attn: Accounting ,[address] [place], [address] , [place] [facility] 9 15:13:10 Neck pain 80530811 Active Not Available [facility] 3 12:19:17 Anxiety disorder 798226801 Active Not Available [facility] 3 12:19:17 Depressive disorder 06379293 Active Not Available [facility] 3 12:19:17 Urinary incontinen ce 203254106 Active Not Available [facility] 3 12:19:17 Gastroesop hageal reflux disease 705144246 Completed 01/25/2020 Lon Recio PA-C Attn: Accounting ,[address] [place], [address] , [place] [facility] 0 11:50:17 Migraine 56492277 Active Not Available [facility] 3 12:19:17 Ankle pain 886782653 Active Not Available [facility] 3 12:19:17 Fracture of ankle 84978815 Completed 03/15/2019 Lon Recio PA-C Attn: Accounting ,[address] [facility], [address] , [place] [facility] 9 15:13:23 Bipolar disorder 32727708 Active Not Available [facility] 3 12:19:17 Chronic obstructiv e pulmonary disease 64983147 Active Not Available [facility] 3 12:19:16 Overweight 551534959 Active Not Available [facility] 3 12:19:17 Sinusitis 57715394 Completed 03/15/2019 Lon Recio PA-C Attn: Accounting ,[address] [facility], [place], [address] , [place] [facility] 9 15:13:15 Diabetes mellitus 00239327 Completed 03/15/2019 Lon Recio PA-C Attn: Accounting ,[address] [facility], [place], [address] , [place] [facility] 9 15:13:18 Hiatal hernia with gastroesop hageal reflux 184391043 Active 2019 Not Available [facility] 3 12:19:17 Midline cystocele 099801360 Active 2019 Not Available [facility] 3 12:19:17 Essential hypertensi on 11799188 Active 2019 Not Available [facility] 3 12:19:17 Tobacco dependence syndrome 08578503 Active 2019 Not Available [facility] 3 12:19:17 Female urinary stress incontinen ce 89900261 Active 2019 Not Available [facility] 3 12:19:17 Cervical radiculopa thy 64160395 Active 2022 Not Available [facility] 3 12:19:17 Memory impairment 724599647 Active 2023 Lon Recio PA-C Attn: Accounting ,[address] [facility], [place], [address] , [place] [facility] 4 09:41:38 Vesicular eczema of hand 416085520 Active 2023 Lon Recio PA-C Attn: Accounting ,[address] [facility], [place], [address] , [place] [facility] 4 15:07:14 Chronic kidney disease stage 3 276896324 Active 2024 Lon Recio PA-C Attn: Accounting ,[address] [facility], [place], [address] , [place] [facility] 5 14:15:25 Chronic kidney disease stage 4 214736158 Active 2024 Lon Recio PA-C Attn: Accounting ,[address] [facility], [place], [address] , [place] [facility] 5 12:09:41 Problem Notes None recorded. Procedures Surgical History Date Name Laterality Status Provider Name and Address Organization Details Recorded Time 11/28/19 24 SLUMS EXAM completed Lon Recio PA-C Attn: Accounting,[address] [facility], [place], [address], [place] [facility] 11/28/2023 09:42:29 02/19/20 22 SLUMS EXAM completed Lon Recio PA-C Attn: Accounting,[address] [facility], [place], [address], [place] [facility] 02/18/2022 13:01:11 06/21/19 20 colonoscopy completed Maureen Calderon LPN [place] - [facility] 07/27/2019 14:06:55 11/07/18 93 Total hysterectomy completed Annita Armendariz MD Attn: Accounting,[address] [facility], [place], [address], [place] [facility] 01/23/2023 16:14:44 Imaging Results None recorded. Procedure Notes None recorded. Medical Equipment None Reported. Allergies Allergen ID Allergen Name Allergen Category Reaction Reaction Severity Criticality Documentation Date Start Date Code Code System Note Provider Name and Address Organization Details Recorded Time 528908 honey bee venom environme nt itching swelling Not available Not available Not available 08/10/2024 02430 7 RxNorm RICCI [place], [place] [facility] 5 13:16:43 7730 codeine medicatio n Not available Not available Not available 05/18/2014 2670 RxNorm [place], [place] [facility] 4 16:20:09 7731 Product containin g penicilli n (product) medicatio n abdominal pain diarrhea itching rash Not available Not available Not available Not available Not available 05/18/2014 15122 8001 SNOMED [place], [place] [facility] 4 16:20:09 Medications Name Sig Start Date Stop Date Status Note LastModified by Organization Details LastModified Time one touch mini test strips use to check blood sugar three times daily before meals 03/15 completed Not Available Not Available Not Available [facility] 2-pk kit covid-19 07/08 completed Not Available Not Available Not Available one touch ultra delica lancets check blood sugars three times daily before meals 03/15 completed Not Available Not Available Not Available losartan 50 mg tablet TAKE 1 TABLET BY MOUTH EVERY DAY 04/16 completed Not Available Not Available Not Available cyclobenz aprine 10 mg tablet TAKE 1 TABLET BY MOUTH NIGHTLY AT BEDTIME NEEDED 2024 active Not Available Not Available Not Avai lable metformin 500 mg tablet TAKE 2 TABLETS (1000MG) BY MOUTH 2 TIMES EVERY DAY WITH MORNING AND EVENING MEALS 07/10 completed Not Available Not Available Not Available prednison e 10 mg tablet Take 1 tablet every day by oral route for 5 days. 06/07 completed Not Available Not Available Not Available Protonix 40 mg tablet,de layed release Take 1 tablet every day by oral route for 30 days. 03/15 completed Not Available Not Available Not Available venlafaxi ne 75 mg tablet TAKE 1 TABLET BY MOUTH TWO TIMES A DAY 07/08 completed Not Available Not Available Not Available nicotine 14 mg/24 hr daily transderm al patch Apply 1 patch every day by transder mal route for 21 days. 07/08 completed Not Available Not Available Not Available clindamyc in HCl 300 mg capsule TAKE 1 CAPSULE BY MOUTH EVERY EIGHT HOURS FOR 7 DAYS UNTIL ALL IS GONE 11/27 completed Not Available Not Available Not Available albuterol sulfate 2.5 mg/3 mL (0.083 %) solution for nebulizat ion Inhale 3 mL 4 times a day by nebuliza tion route as needed for 10 days. 03/15 completed Not Available Not Available Not Available Carafate 1 gram tablet Take 1 tablet 4 times a day by oral route for 30 days. 03/15 completed Not Available Not Available Not Available cetirizin e 10 mg tablet TAKE 1 TABLET BY MOUTH EVERY DAY 07/08 completed Not Available Not Available Not Available oxybutyni n chloride ER 10 mg tablet,ex tended release 24 hr TAKE 1 TABLET BY MOUTH EVERY DAY 08/17 completed Not Available Not Available Not Available azithromy reena 250 mg tablet TAKE 2 TABLETS (500 MG) BY ORAL ROUTE ONCE DAILY FOR 1 DAY THEN 1 TABLET (250 MG) BY ORAL ROUTE ONCE DAILY FOR 4 DAYS 08/16 completed Not Available Not Available Not Available alprazola m 1 mg tablet TAKE 1 TABLET BY MOUTH 30 MINUTES before PROCEDUR E active Not Available Not Available No t Available tizanidin e 4 mg tablet TAKE 1 TABLET 3 TIMES A DAY BY ORAL ROUTE DIRECTED FOR 15 DAYS. 01/08 completed Not Available Not Available Not Available metoprolo l succinate ER 50 mg tablet,ex tended release 24 hr Take 1 tablet every day by oral route. 08/10 completed Not Available Not Available Not Available levetirac etam 500 mg tablet TAKE 1 TABLET BY MOUTH TWICE A DAY 12/25 completed Not Available Not Available Not Available hydrocodo ne 5 mg-acetam inophen 325 mg tablet TAKE 1 TABLET BY MOUTH EVERY 4 HOURS 08/16 completed Not Available Not Available Not Available Ativan 1 mg tablet Take 1 tablet 1 hour prior to MRI. 07/10 completed Not Available Not Available Not Available prednison e 20 mg tablet TAKE 2 TABLETS BY MOUTH EVERY DAY FOR 5 DAYS 08/17 completed Not Available Not Available Not Available dexametha sone 6 mg tablet TAKE 1 TABLET BY MOUTH EVERY DAY 08/17 completed Not Available Not Available Not Available metoprolo l succinate ER 100 mg tablet,ex tended release 24 hr TAKE 1 TABLET BY MOUTH EVERY DAY 2024 active Not Available Not Available Not Avai lable pimecroli mus 1 % topical cream 07/08 completed Not Available Not Available Not Available venlafaxi ne ER 150 mg capsule,e xtended release 24 hr Take 1 capsule every day by oral route for 30 days. 03/15 completed Not Available Not Available Not Available topiramat e 25 mg tablet TAKE 1 TABLET BY MOUTH EVERY DAY FOR 30 DAYS 02/27 completed Not Available Not Available Not Available pseudoeph edrine ER 120 mg tablet,ex tended release Take 1 tablet every 12 hours by oral route. 06/07 completed Not Available Not Available Not Available chlorthal idone 25 mg tablet Take 1 tablet every day by oral route. 09/05 completed Not Available Not Available Not Available chlorthal idone 50 mg tablet TAKE 1 TABLET BY MOUTH EVERY DAY 2024 active Not Available Not Available Not Avai lable ciproflox acin 500 mg tablet TAKE 1 TABLET BY MOUTH EVERY 12 HOURS FOR 7 DAYS 02/18 completed Not Available Not Available Not Available omeprazol e 40 mg capsule,d elayed release TAKE 1 CAPSULE BY MOUTH TWO TIMES A DAY 07/08 completed Not Available Not Available Not Available tramadol 50 mg tablet TAKE 1 TABLET BY MOUTH THREE TIMES A DAY NEEDED FOR 4 DAYS active Not Available Not Available No t Available triamcino lone acetonide 0.1 % topical cream apply a thin layer to hands and feet TWO TIMES A DAY FRIDAY thru 08/17 completed Not Available Not Available Not Available ketorolac 30 mg/mL (1 mL) injection solution Inject 2 mL by intramus cular route. 01/24 completed Not Available Not Available Not Available bupropion HCl 100 mg tablet Take 1 tablet twice a day by oral route for 30 days. 03/15 completed Not Available Not Available Not Available amitripty line 25 mg tablet Take 1 tablet every day by oral route at bedtime for 30 days. 10/21 completed Not Available Not Available Not Available prednisol one acetate 1 % eye drops,brandie pension INSTILL 1 DROP INTO BOTH EYES 3 TIMES A DAY X 7 DAYS, TWICE A DAY X 7 DAYS, EVERY DAY X 7 DAYS 02/18 completed Not Available Not Available Not Available Klonopin 0.5 mg tablet Take 1 tablet 3 times a day by oral route for 30 days. 07/10 completed Not Available Not Available Not Available doxycycli ne monohydra te 100 mg capsule Take 1 capsule twice a day by oral route for 10 days. 11/28 completed Not Available Not Available Not Available cephalexi n 500 mg capsule TAKE 1 CAPSULE BY MOUTH TWO TIMES A DAY FOR 10 DAYS UNTIL GONE 04/22 completed Not Available Not Available Not Available metformin 1,000 mg tablet Take 1 tablet every day by oral route. active Not Available Not Available No t Available triamcino lone acetonide 0.1 % topical ointment APPLY A THIN LAYER TO THE AFFECTED AREA(S) 2 TIMES PER DAY NEEDED 11/27 completed Not Available Not Available Not Available calcipotr iene 0.005 % topical cream 07/08 completed Not Available Not Available Not Available prednison e 50 mg tablet TAKE 1 TABLET BY MOUTH EVERY DAY FOR 5 DAYS 01/08 completed Not Available Not Available Not Available losartan 25 mg tablet TAKE 1 TABLET BY MOUTH EVERY DAY 12/14 completed Not Available Not Available Not Available nicotine 21 mg/24 hr daily transderm al patch Apply 1 patch every day by transder mal route for 21 days. 07/08 completed Not Available Not Available Not Available gabapenti n 300 mg capsule Take 1 capsule 3 times a day by oral route as needed for 30 days. 08/16 completed changed to lyrica Not Available Not Available Not Available omeprazol e 20 mg capsule,d elayed release Take 1 capsule every day by oral route for 30 days. 03/15 completed Not Available Not Available Not Available lisinopri l 5 mg tablet TAKE 1 TABLET BY MOUTH EVERY DAY 08/29 completed Not Available Not Available Not Available Levaquin 500 mg tablet Take 1 tablet every 24 hours by oral route for 7 days. 2014 active Not Available Not Available Not Avai lable gabapenti n 100 mg capsule Take 1 capsule 3 times a day by oral route. 2014 active Not Available Not Available Not Avai lable metoprolo l succinate ER 25 mg tablet,ex tended release 24 hr Take 1 tablet every day by oral route. 05/10 completed Not Available Not Available Not Available methylpre dnisolone sodium succinate 125 mg solution for injection Take 125 mg every day by injectio n route as directed for 1 day. 2014 active Not Available Not Available Not Avai lable fluticaso ne 100 mcg-salme terol 50 mcg/dose blistr powdr for inhalatio n Inhale one puff BY MOUTH TWO TIMES A DAY active Not Available Not Available No t Available prednison e 5 mg tablets in a dose pack Take 1 dose pk by oral route as directed . 03/19 completed stopped taking states she had terrible nightmar es Not Available Not Available Not Available ibuprofen 600 mg tablet TAKE 1 TABLET BY MOUTH THREE TIMES A DAY WITH FOOD 11/27 completed Not Available Not Available Not Available methylpre dnisolone 4 mg tablets in a dose pack TAKE TABLETS DIRECTED ON INSIDE OF THIS PACKAGE 04/29 completed Not Available Not Available Not Available albuterol sulfate HFA 90 mcg/actua tion aerosol inhaler INHALE 2 PUFFS BY MOUTH EVERY 4 HOURS PRN active Not Available Not Available No t Available ketorolac 60 mg/2 mL intramusc ular solution Inject 2 mL every day by intramus cular route for 1 day. 05/23 completed Not Available Not Available Not Available oxybutyni n chloride 5 mg tablet TAKE 1 TABLET BY MOUTH TWICE A DAY 08/17 completed Not Available Not Available Not Available losartan 100 mg tablet TAKE 1 TABLET BY MOUTH EVERY DAY active Not Available Not Available No t Available amitripty line 100 mg tablet Take 1 tablet twice a day by oral route for 30 days. 03/15 completed Not Available Not Available Not Available naproxen 500 mg tablet Take 1 tablet twice a day by oral route for 30 days. 03/15 completed Not Available Not Available Not Available nicotine 7 mg/24 hr daily transderm al patch Apply 1 patch every day by transder mal route for 21 days. 07/08 completed Not Available Not Available Not Available Bactrim DS 800 mg-160 mg tablet Take 1 tablet every 12 hours by oral route for 10 days. 2014 active Not Available Not Available Not Avai lable Afrin (oxymetaz oline) 0.05 % nasal spray [place] 2 sprays twice a day by intranas al route for 3 days. 07/08 completed Not Available Not Available Not Available azithromy reena 500 mg tablet Take 1 tablet every day by oral route for 5 days. 03/15 completed Not Available Not Available Not Available Klor-Con M20 mEq tablet,ex tended release TAKE 1 TABLET BY MOUTH DAILY FOR , HYPOKALE TANK 01/08 completed Not Available Not Available Not Available topiramat e 50 mg tablet TAKE 1 TABLET BY MOUTH TWO TIMES A DAY. Please make APPOINTM ENT 07/08 completed Not Available Not Available Not Available nitrofura ntoin monohydra te/macroc rystals 100 mg capsule TAKE 1 CAPSULE (100 MG) BY ORAL ROUTE 2 TIMES FOR 14 DAYS. 08/16 completed Not Available Not Available Not Available duloxetin e 30 mg capsule,d elayed release TAKE 1 CAPSULE( S) EVERY DAY BY ORAL ROUTE FOR 30 DAYS 07/10 completed Not Available Not Available Not Available Cymbalta 60 mg capsule,d elayed release Take 1 capsule twice a day by oral route. 2015 active Not Available Not Available Not Avai lable pregabali n 75 mg capsule TAKE 1 CAPSULE BY MOUTH TWO TIMES A DAY 2024 active Not Available Not Available Not Avai lable Zofran 07/27 completed 06/07/19 * order from hospital Not Available Not Available Not Available Abilify active Not Available Not Avail able Not Available Cymbalta active Not Available Not Avai lable Not Available Abilify 2 mg tablet Take 1 tablet every day by oral route as directed for 30 days. 07/10 completed Not Available Not Available Not Available FreeStyle Lite Strips Take 1 strip 3 times a day by miscell. route before meals for 30 days. 03/15 completed Not Available Not Available Not Available FreeStyle Lite Meter USE TO CHECK SUGAR 3 TIMES DAILY 03/15 completed Not Available Not Available Not Available Fanapt 12 mg tablet Take 1 tablet twice a day by oral route. 07/10 completed Not Available Not Available Not Available Fanapt 6 mg tablet TAKE 1 TABLET BY MOUTH TWICE A DAY 07/10 completed Not Available Not Available Not Available Fanapt active Not Available Not Availa ble Not Available Latuda 40 mg tablet Take 1 tablet every day by oral route for 30 days. 03/15 completed Not Available Not Available Not Available Audra Tinajero [facility] spacer USE WITH INHALER 11/27 completed Not Available Not Available Not Available Anoro Ellipta 62.5 mcg-25 mcg/actua tion powder for inhalatio n Inhale 1 puff every day by inhalati on route for 28 days. 03/15 completed Not Available Not Available Not Available naloxone 4 mg/actuat ion nasal spray USE 1 SPRAY NASALLY NEEDED FOR OPIATE OVERDOSE 11/27 completed Not Available Not Available Not Available Fluzone Quad (PF) 60 mcg (15 mcg x 4)/0.5 mL IM syringe 05/30 completed Not Available Not Available Not Available [facility] COVID-19 Antigen Rapid Home Test kit USE NEEDED 07/08 completed Not Available Not Available Not Available Vtama 1 % topical cream 08/17 completed Not Available Not Available Not Available Vitals Date Recorded Body height Body mass index (BMI) Body weight Oxygen saturation Oxygen saturation in Arterial blood by Pulse oximetry Heart rate Respiratory rate Systolic And Diastolic Provider Name and Address Organization Details Last Updated DateTime 5 175.26 cm 23.7 kg/m2 52243.1 8 g 100 % 100 % 68 /min 18 /min 144/84 mm[Hg] Amee Kelly [place] [facility] 14:02:49 Date Recorded Systolic And Diastolic Provider Name and Address Organization Details Last Updated DateTime 08/05/2024 122/69 mm[Hg] Rocky Cordova LPN [place] - [facility] 07/11 14:07:21 Date Recorded Body height Body mass index (BMI) Body weight Oxygen saturation Oxygen saturation in Arterial blood by Pulse oximetry Heart rate Respiratory rate Systolic And Diastolic Provider Name and Address Organization Details Last Updated DateTime 5 175.26 cm 24.2 kg/m2 07786.8 5 g 99 % 99 % 82 /min 16 /min 154/90 mm[Hg] Amee Kelly MA [facility] 13:15:39 Date Recorded Body height Body mass index (BMI) Body weight Oxygen saturation Oxygen saturation in Arterial blood by Pulse oximetry Heart rate Respiratory rate Systolic And Diastolic Provider Name and Address Organization Details Last Updated DateTime 175.26 cm 24.6 kg/m2 59017.1 3 g 98 % 98 % 78 /min 16 /min 146/92 mm[Hg] Amee Kelly MA [facility] 14:39:00 Date Recorded Systolic And Diastolic Provider Name and Address Organization Details Last Updated DateTime 09/23/2024 136/82 mm[Hg] Amee Kelly MA [facility] 09/23/2024 12:44:12 Date Recorded Body height Systolic And Diastolic Provider Name and Address Organization Details Last Updated DateTime 04/21/2024 175.26 cm 176/88 mm[Hg] Rocky Cordova LPN [facility] 04/21/2024 11:43:23 Date Recorded Body height Systolic And Diastolic Provider Name and Address Organization Details Last Updated DateTime 05/11/2024 175.26 cm 110/64 mm[Hg] Rocky Cordova LPN [facility] 05/11/2024 15:01:44 Social History Question Answer Notes LastModified by Organizat ion Details LastModified Time Tobacco Smoking Status Current Every Day Smoker smokes less than a pack a day Nayeli Duong RN [facility], [facility] 08/17/2021 10:09:18 Do You Have An Advance Directive? No Information not available 03/15/2019 Are You Blind Or Do You Have Difficulty Seeing? No Information not available 11/28/2023 What Is Your Level Of Caffeine Consumption? Moderate Information not available 05/11/2020 How Much Tobacco Do You Chew? None Information not available 03/15/2019 In The 14 Days Before Symptom Onset, Have You Had Close Contact With A Laboratory-confir [facility] COVID-19 While That Case Was Ill? No Information not available 11/28/2023 In The 14 Days Before Symptom Onset, Have You Had Close Contact With A Person Who Is Under Investigation For COVID-19 While That Person Was Ill? No Information not available 11/28/2023 Have You Been To An Area Known To Be High Risk For COVID-19? No Information not available 11/28/2023 Are You Deaf Or Do You Have Serious Difficulty Hearing? No Information not available 11/28/2023 What Type Of Diet Are You Following? REGULAR Information not available 03/15/2019 Which Illicit Or Recreational Drugs Have You Used? None Information not available 03/15/2019 Education 12 Information no t available 03/15/2019 Are There Any Guns Present In Your Home? No Information not available 03/15/2019 Hard Of Hearing Or Deaf In One Or Both Ears? No Information not available 03/15/2019 Legally Blind In One Or Both Eyes? No Wears Glasses Information not available 03/15/2019 Marital Status Informatio n not available 03/15/2019 What Was The Date Of Your Most Recent Tobacco Screening? 08/17/2024 Information not available 08/17/2024 How Many Children Do You Have? 2 Information not available 11/28/2023 Performs Monthly Self-breast Exam? No Information no t available 03/15/2019 What Is Your Relationship Status? Information not available 11/28/2023 Do You Use Your Seat Belt Or Car Seat Routinely? Yes Information not available 11/28/2023 Seat Belts Used Routinely Yes Information not available 03/15/2019 Smoke Alarm In Home Yes Information not available 03/15/2019 Do You Have Smoke And Carbon Monoxide Detectors In Your Home? No Information not available 11/28/2023 At What Age Did You Start Smoking Tobacco? 18 Information not available 03/15/2019 Are You Passively Exposed To Smoke? Yes Information no t available 11/28/2023 How Much Tobacco Do You Smoke? 1 PPD Information not available 03/15/2019 General Stress Level Medium Information not available 03/15/2019 Do You Use Sunscreen Routinely? No Information not available 03/15/2019 Has Tobacco Cessation Counseling Been Provided? Yes [email or web address] Information not available 02/18/2023 On What Date Was Tobacco Cessation Counseling Provided? 08/17/2024 Information not available 08/17/2024 How Many Years Have You Smoked Tobacco? 40 [email or web address] Information not available 11/29/2019 Sex: Female Functional Status Question Answer Note LastModified by Organizat ion Details LastModified Time Do you use any illicit or recreational drugs? No Information not available 08/17/2021 Do you or have you ever used any other forms of tobacco or nicotine? No Information not available 08/17/2021 What is your level of alcohol consumption? Occasional Information not available 03/15/2019 Do you or have you ever used smokeless tobacco? Never used smokeless tobacco Information not available 03/15/2019 Are you currently employed? No Information not available 07/08/2024 Are you able to care for yourself independently? 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 Never used electronic cigarettes Information not available 03/15/2019 What is your exercise level? Occasional Information not available 07/08/2024 Mental Status Question Answer Note LastModified by Organization D etails LastModified Time Do you feel stressed (tense, restless, nervous, or anxious, or unable to sleep at night)? [id number] Information not available 11/28/2023 Family History Relationship Description Onset Age of this Age Resolved Age Notes LastModified by Organization Details LastModified Time Father Harmful pattern of use of alcohol [email or web address] Not available 2015 14:18:06 Father Asthma [email or web address] Not available 14:18:06 Father Coronary arterioscler osis [email or web address] Not available 2015 14:18:06 Father Hypertensive disorder [email or web address] Not available 2015 14:18:06 Mother Disorder of thyroid gland [email or web address] Not available 2015 14:18:06 Brother Harmful pattern of use of alcohol [email or web address] Not available 2015 14:18:06 Brother Asthma [email or web address] Not available 0 06/29/2015 14:18:06 Brother Depressive disorder [email or web address] Not available 2015 14:18:06 Brother Diabetes mellitus [email or web address] Not available 2015 14:18:06 Medical History Condition Response Anxiety Disorder Y Diabetes Y Muscle, Joint, or Bone Problems Y Thyroid Problems Y Kidney or Bladder Problems Y Depression Y Blood Clots Y Asthma Y Allergies Y Gynecological History Statement/Question Response Menses Monthly N Date of Last Pap Smear Current Control Method Hysterectom y Date of Last Mammogram Obstetrics History GPAL:G 0 P 0 0 0 0 Immunizations Vaccine Type Date Status Note Provider Nam e and Address Organization Details Recorded Time Influenza, split virus, quadrivalent, preservative 0 completed Telisa Sheboygan, [employer]INE OPERATOR null, [place] [facility] 06/05/2022 10:54:22 Influenza, split virus, quadrivalent, preservative 0 completed Telisa She[place]gan, [employer] MACHINE OPERATOR [place], [place] [facility] 06/05/2022 10:54:22 COVID-19 vaccine, vector-nr, rS-Ad26, PF, 0.5 mL 1 completed Telisa [place], [employer] MACHINE OPERATOR [place], [place] [facility] 06/05/2022 10:54:22 Influenza, split virus, quadrivalent, preservative 1 completed Telisa [place]gan, [employer] MACHINE OPERATOR [place], [place] [facility] 06/05/2022 10:54:22 COVID-19, mRNA, LNP-S, PF, 30 mcg/0.3 mL dose 1 completed Telisa [place]gan, [employer] MACHINE OPERATOR [place], [place] [facility] 06/05/2022 10:54:22 zoster recombinant 2 completed Telisa [place]gan, [employer] MACHINE OPERATOR [place] [facility] 06/05/2022 10:54:22 zoster recombinant 2 completed Telisa [place]gan, [employer] MACHINE OPERATOR [place], [place] [facility] 06/05/2022 10:54:22 Influenza, split virus, quadrivalent, preservative 9 completed Not Available [employer] 06/26/2019 02:38:13 pneumococcal polysaccharide PPV23 0 completed Nayeli Duong RN null, [facility] 05/11/2020 12:30:25 Tdap 0 completed Nayeli Duong RN null, [facility] 05/11/2020 12:31:43 Influenza, split virus, trivalent, PF 4 completed Lon Recio PA-C Attn: Accounting[address] [place], [address], [facility] 04/19/2024 11:02:00 Past Encounters Encounter ID Performer Location Encounter Start Date Encounter Closed Date Diagnosis/Indication Diagnosis SNOMED-CT Code Diagnosis ICD10 Code Diagnosis IMO Codes Diagnosis Note [id number] DO Brody Vasquez [address] [place] [id number] 05/18/2014 16:08:22 05/18/2014 16:57:32 Urinary incontinence [id number] DO Brody Vasquez [address] [place] [id number] 08/16/2014 14:14:52 08/16/2014 15:24:45 Urinary incontinence 385230128 Low back pain 418783052 Lumbar radiculopathy 539718953 Type 2 hayde betes mellitus 63623412 Diabetic p eripheral neuropathy 891319260 Acute sinusitis 84824533 [id number] DO Brody Vasquez [address] [place] [address] 09/20/2014 09:28:22 09/20/2014 10:25:49 Pneumonia [id number] DO Brody Vasquez [address] [place] [id number] 10/14/2014 14:36:07 10/14/2014 15:37:35 Low back pain 309288824 Neck pain 89843857 Anxiety disorder 652176801 Depressive disorder 60569358 [id number] Yunier [place] [address] [place] [id number] 05/15/2015 13:48:47 05/16/2015 08:27:53 Low back pain 581355142 M54.5 Neck pain 40565114 M54.2 Gastroesop hageal reflux disease 796243319 K21.9 Adult heal th examination 509205615 Z00.00 Anxiety disorder 4729292 06 F41.9 Depressive disorder 3548 9007 F32.9 Migraine 27713187 G43.90 9 Ankle pain 230624481 M25 .579 [id number] Healy MD Brody Ward [address] [place] [address] 06/29/2015 14:05:41 07/03/2015 13:39:23 Low back pain 404159020 M54.5 Depressive disorder 3548 9007 F32.9 Bipolar disorder 7776767 4 F31.9 Migraine 78167250 G43.90 9 Gastroesop hageal reflux disease 271270730 K21.9 Chronic ob structive pulmonary disease 91482943 J44.9 [id number] MD Brody Mary [address] [place] [address] 07/20/2015 11:24:22 07/24/2015 08:47:32 Low back pain 686325256 M54.5 Overweight 251270814 E66 .3 Sinusitis 48686420 J32.9 Diabetes mellitus 594495 09 E11.9 [id number] MD Brody Guerra [address] [place] [address] 03/15/2019 14:42:39 03/15/2019 15:47:40 Low back strain 925801647 S39.012A 03/15/19: since fall two weeks ago, seen in [facility] with negative plain films. on flexeril with some benefit. will refill. on exam has marked L thoracic and lumbar paraspinal TTP. appears to be myofascial strain and educated on usual course and ultimately self limiting nature. will treat inflammati on today with low dose steroid taper. Type 2 hayde betes mellitus 44761377 E11.42 03/15/19: previously insulin dependent, but lost >100lbs >5 years ago and was told she no longer required medication . has been untreated for years. endorses history of neuropathy with pins and needles sensation in bilateral feet. reports previous benefit to gabapentin and will restart.>> repeat a1c WNL, no new meds necessary for this at this time. Chronic ob structive pulmonary disease 59049839 J44.9 03/15/19: chronic smoker who gives history of asthma. has been getting by over past 3.5 years without inhaled therapy. requests inhalers and at this point will restart albuterol MDI for PRN use. if more therapy is needed, then would obtain PFTs. Adult [facility] th examination 865973153 Z00.00 03/15/19: re-[facility], will obtain routine screening labs. >>minor abnormalit ies, including leukocytos is likely due to smoking. Anxiety disorder 4684301 06 F41.9 03/15/19: reports chronic daily anxiety with regular panic symptoms. discussed options and would start with counseling before medication and will refer. Active or passive immunization 704116885 Z23 03/16/19: discussed yearly flu and patient is amenable. [id number] MD Brody Patricia [address] [place] [address] 05/21/2019 10:48:41 05/21/2019 11:52:42 Acute bacterial sinusitis 45490751 J01.90 05/21/19 c/o sinus pressure that feels like her eyes are going to pop out with white drainage. c/o occasional ly productive cough with white phlegm, a weird fluttering sound in both ears with occasional pain. c/o increased problems with SOB and states her albuterol does not seem to be helping. States she has been using her albuterol 6+ time per day. States she has been waking up at night coughing as well. C/o body aches but not sure of fever. States these s/s started about a week ago and is worsening since then. c/o matting to bilateral eyes. Discussed will treat for ABRS since this has been going on for a month without relief or improvemen t. rTC in 7-10 days for f/u or sooner if any worsening or concerns. Acute exac erbation of chronic obstructive pulmonary disease 514525473 J44.1 05/21/19 c/o increased problems with SOB and states her albuterol does not seem to be helping. States she has been using her albuterol 6+ time per day. States she has been waking up at night coughing as well. C/o body aches but not sure of fever. States these s/s started about a week ago and is worsening since then. c/o matting to bilateral eyes. Exam reveals inspirator y/expirato ry wheezing throughout . Will add Wixela and prednisone . RTC in 2 weeks for f/u or sooner if any worsening or concerns. Screening for malignant neoplasm of colon 385468267 Z12.11 05/21/19 Pt requesting a referral for colonoscop y because her mother was dx a couple years ago and she has not had one. [id number] MD Brody Guerra [facility] [address] [place] [address] 06/07/2019 14:53:41 06/07/2019 16:29:19 Biliary colic 96766377 K80.50 06/07/19: ED follow up: reports sudden onset severe RUQ two days ago with N/V and GERD. seen in [facility] yesterday and labs reassuring and found to have biliary sludge on CT without other findings. today with TTP to RUQ without peritoneal signs. educated on dietary recommenda tions in detail. will obtain records and refer to gen surg. Gastroesop hageal reflux disease 224187893 K21.9 06/07/19: reports increased heartburn over past two days. has been using chronic ibuprofen over past several weeks as well. certainly may have a gastritis component to current symptoms and so advised NSAID cessation and will trial short course PPI, as well. Acute exac erbation of chronic obstructive pulmonary disease 027152792 J44.1 06/07/19: reports benefit to wixela, though still note wheeze today. will follow. 05/21/19 ([place]) c/o increased problems with SOB and states her albuterol does not seem to be helping. States she has been using her albuterol 6+ time per day. States she has been waking up at night coughing as well. C/o body aches but not sure of fever. States these s/s started about a week ago and is worsening since then. c/o matting to bilateral eyes. Exam reveals inspirator y/expirato ry wheezing throughout . Will add Wixela and prednisone . RTC in 2 weeks for f/u or sooner if any worsening or concerns. [id number] MD Brody Guerra [facility] [address] [place] [address] 07/27/2019 13:53:40 07/27/2019 14:46:29 Essential hypertension 40760075 I10 07/27/19: 160/100 today and previously hyperkalem ic and so will go ahead and initiate chlorthali done therapy and plan for nurse visit BP recheck in 1-2 weeks to assess response. Stenosis o f spinal canal due to intervertebral disc 937507703 M99.51 07/27/19: chronic neck pain with intermitte nt shooting pains and numbness down both arms, L > R for years, pt feels is worse past few weeks without new injury. MRI c spine from 2014 reveals DDD uncoverteb ral OA at C5-7 levels with canal and foraminal stenosis. positive spurling and cervical distractio ns tests bilaterall y today, L > R. discussed options and patient would like referral to spine. will administer IM ketorolac today for acute pain and obtain interval plain films. will then plan for repeat MRI and spine referral.> >XRs again demonstrat e severe C5/6 DDD and moderate C6/7 DDD and likely source of symptoms and will describe further with MRI. Degenerati on of lumbar intervertebral disc 44696584 M51.36 07/27/19: chronic low back pain with sciatica symptoms. MRI L spine of 2015 reveals mild multilevel DDD and uncoverteb ral arthritis at all lumbar levels with prolapsed disc to L at L4/5. recently had plain films done in ED and will obtain >> no acute findings. Cervical radiculopathy 19233083 M54.12 07/27/19: minimal benefit to gabapentin with adverse effects of decreased concentrat ion. reports previous benefit and tolerance from lyrica and so will switch. Low back strain 38505843 1 S39.012A 07/27/19: reports continued spasms since that time, controlled with cyclobenza marcos and will continue. 03/15/19: since fall two weeks ago, seen in [facility] with negative plain films. on flexeril with some benefit. will refill. on exam has marked L thoracic and lumbar paraspinal TTP. appears to be myofascial strain and educated on usual course and ultimately self limiting nature. will treat inflammati on today with low dose steroid taper. Chronic ob structive pulmonary disease 86629914 J44.9 07/27/19: due for refills. 03/15/19: chronic smoker who gives history of asthma. has been getting by over past 3.5 years without inhaled therapy. requests inhalers and at this point will restart albuterol MDI for PRN use. if more therapy is needed, then would obtain PFTs. Type 2 hayde betes mellitus 92982684 E11.42 Hiatal her landry with gastroesophageal reflux 137524710 K21.9 07/27/19: hiatal hernia, GERD and gastritis, following with Dr. Trinh and on BiD ppi with benefit per patient. advised to stop all NSAIDs. [id number] ISIAH HUSSEIN [address] [place] [address] 08/10/2019 10:27:00 08/10/2019 11:15:10 Essential hypertension 22574589 I10 [id number] MD Brody Guerra [address] [place] [address] 08/17/2019 11:10:15 08/17/2019 12:59:56 Routine gynecologic examination done 6107442129 9101 Z01.419 08/17/19: here for routine pap. last pap 5 years ago and normal. history of partial hysterecto my>10 years ago and patient believed she had retained cervix. not visualized or palpated on exam and believe to be surgically absent. sample taken from what seems to be corner of vaginal cuff and sent. Screening for malignant neoplasm of breast 197455186 Z12.39 08/17/19: last mammo 5 years ago and is due. breast exam is benign. Menopausal flushing 1983 32647 N95.1 08/17/19: reports hot flashes since partial hysterecto my and unilateral oophorecto my >10 years ago. flushing worse in past 1-2 years and desires pharmacolo gic interventi on. discussed potential benefits and limitation s of medication . pt is smoker and so will not rx estrogen. will trial effexor. educated on adverse drug reactions in detail. Pt comfortabl e with plan. Essential hypertension 76070031 I10 08/17/19: improved but still high at 136/90. increase dose to 50 and recheck here next week. 07/27/19: 160/100 today and previously hyperkalem ic and so will go ahead and initiate chlorthali done therapy and plan for nurse visit BP recheck in 1-2 weeks to assess response. Cervical radiculopathy 45798526 M54.12 08/17/19: endorses benefit to lyrica switch. 08/12/19: phone call: MRI denied due to lack of 6 weeks of physiother apy and so will order PT 07/27/19: minimal benefit to gabapentin with adverse effects of decreased concentrat ion. reports previous benefit and tolerance from lyrica and so will switch. Midline cystocele 522919 003 N81.11 08/17/19: small to exam. [id number] MD Brody Guerra [address] [place] [address] 09/06/2019 15:52:28 09/06/2019 16:40:05 Acute exacerbation of chronic obstructive pulmonary disease 701789370 J44.1 09/06/19: phone visit: reports 4th day of cough, LAI, rhinitis, malaise without fever or dyspnea at rest. likely viral. travel screen is negative and no sick contacts. continue current therapy and supportive measures as discussed and plan for phone call f/u in two days. call/ED if any worsening in meantime. pt comfortabl e with plan. Menopausal flushing 1984 28615 N95.1 09/06/19: phone visit: states hot flashes completely resolved with effexor. reports some mild increased appetite without other symptoms. 08/17/19: reports hot flashes since partial hysterecto my and unilateral oophorecto my >10 years ago. flushing worse in past 1-2 years and desires pharmacolo gic interventi on. discussed potential benefits and limitation s of medication . pt is smoker and so will not rx estrogen. will trial effexor. educated on adverse drug reactions in detail. Pt comfortabl e with plan. [id number] MD Brody Guerra [address] [place] [address] 09/08/2019 08:07:34 09/08/2019 11:15:23 Acute sinusitis 79566500 J01.90 Acute exac erbation of chronic obstructive pulmonary disease [id number] J44.1 09/08/19: phone visit: interval mild improvemen t of LAI with developmen t of mild wheeze and worsening sinus pain/press ure. will treat for ABRS with doxycyclin e given PCN allergy and plan for phone call f/u in 5 days. 09/06/19: phone visit: reports 4th day of cough, LAI, rhinitis, malaise without fever or dyspnea at rest. likely viral. travel screen is negative and no sick contacts. continue current therapy and supportive measures as discussed and plan for phone call f/u in two days. call/ED if any worsening in meantime. pt comfortabl e with plan. [id number] ESSENCE Hagen [address] [place] [address] 09/13/2019 07:56:58 09/13/2019 09:40:21 Acute exacerbation of chronic obstructive pulmonary disease [id number] J44.1 09/13/19: phone visit: continues to improve. recommend antihistam ine this allergy season. call/RTC as needed. 09/08/19: phone visit: interval mild improvemen t of LAI with developmen t of mild wheeze and worsening sinus pain/press ure. will treat for ABRS with doxycyclin e given PCN allergy and plan for phone call f/u in 5 days. 09/06/19: phone visit: reports 4th day of cough, LAI, rhinitis, malaise without fever or dyspnea at rest. likely viral. travel screen is negative and no sick contacts. continue current therapy and supportive measures as discussed and plan for phone call f/u in two days. call/ED if any worsening in meantime. pt comfortabl e with plan. [id number] MD Brody [facility] [address] [place] [address] 11/29/2019 13:59:18 11/29/2019 15:04:02 Infection of tooth [id number] K04.7 11/29/19: L mandibular molar pain that has been intermitte nt for past 3 months. #19 TTP and loose to exam. will treat with cephalexin and IM toradol today. f/u dentistry. Female jeannei rica stress incontinence 03484703 N39.3 11/29/19: longstandi ng per patient. discussed options and will trial oxybutynin course. educated on adverse drug reactions in detail. Pt comfortabl e with plan. Screening for malignant neoplasm of breast 948899795 Z12.39 11/29/19: yet to complete and will order once more. 08/17/19: last mammo 5 years ago and is due. breast exam is benign. Temporoman dibular joint disorder 10437235 M26.609 11/29/19: historical L TMJ with CC intermitte nt otalgia over past three months. on exam, has normal otoscopic exam and pain with AROM TMJ. certainly some of this may be referred from tooth below. treating for tooth and RTC if no benefit. [id number] MD Brody Guerra [facility] [address] [place] [address] 01/25/2020 11:26:46 01/25/2020 12:33:06 Adult health examination [id number] Z00.00 01/25/20: well check. doing well overall. checking basic screening labs >> borderline kidney function and WBC counts, otherwise reassuring . 03/15/19: re-establi shing care, will obtain routine screening labs. >>minor abnormalit ies, including leukocytos is likely due to smoking. Type 2 hayde betes mellitus 27361309 E11.42 01/25/20: recheck >> a1c 5.5. 03/15/19: previously insulin dependent, but lost >100lbs >5 years ago and was told she no longer required medication . has been untreated for years. endorses history of neuropathy with pins and needles sensation in bilateral feet. reports previous benefit to gabapentin and will restart.>> repeat a1c WNL, no new meds necessary for this at this time. Lumbar radiculopathy 128 225202 M54.16 01/25/20: stable per patient. Hiatal her landry with gastroesophageal reflux 627321010 K21.9 01/25/20: persists. reports increased nausea over past several weeks without other symptoms. 07/27/19: hiatal hernia, GERD and gastritis, following with Dr. Trinh and on BiD ppi with benefit per patient. advised to stop all NSAIDs. Anxiety disorder 0012309 06 F41.9 01/25/20: continues, stated as manageable currently. checking TSH >>WNL. 03/15/19: reports chronic daily anxiety with regular panic symptoms. discussed options and would start with counseling before medication and will refer. Tobacco de pendence syndrome 70805757 F17.200 01/25/20: ppd smoker, not amenable to quitting. Female uri nary stress incontinence 45029198 N39.3 01/25/20: no benefit to oxybutynin . discussed options and patient desires urology referral. checking UA today >> WNL. 11/29/19: longstandi ng per patient. discussed options and will trial oxybutynin course. educated on adverse drug reactions in detail. Pt comfortabl e with plan. Chronic ob structive pulmonary disease 63991941 J44.9 01/25/20: breathing stated as good currently. pt reports recent nausea and concerned could be due to ICS/LABA. certainly can try holding for 5 days to assess response, but rather suspect due to known gastropath y. 07/27/19: due for refills. 03/15/19: chronic smoker who gives history of asthma. has been getting by over past 3.5 years without inhaled therapy. requests inhalers and at this point will restart albuterol MDI for PRN use. if more therapy is needed, then would obtain PFTs. [id number] MD Brody Guerra [address] [place] [address] 05/11/2020 11:31:01 05/11/2020 13:01:34 Tenosynovitis of right radial styloid [id number] 2453830 M65.4 05/11/20: 3 days acute R radial thumb and wrist pain with flexion and extension of thumb. no specific injury or new activities per patient. no edema, erythema, bruising to exam. has TTP over thumb extensor tendon sheath from DIP to mid forearm with positive finkelstei n's. presumptiv e de quervains and will treat with IM toradol today and start thumb spica for next 1-2 weeks and call if no benefit. Active or passive immunization 968430289 Z23 05/11/20: discussed routine vaccines and PPSV23 indicated due to DM and amenable. tdap >10 years and amenable. already received flu vaccine this season. 03/16/19: discussed yearly flu and patient is amenable. [id number] MD Brody Guerra [address] [place] [address] 05/30/2020 09:22:17 05/30/2020 11:39:43 Acute maxillary sinusitis 33776762 J01.00 05/30/20: phone visit: pt calls to report 6 days of cough, LAI, rhinitis, REECE, myalgias, fatigue and mild changes to taste and smell. no definite sick contacts. will screen for COVID and treat for ABRS with z pack and medrol dose pack. pt comfortabl e with plan. Suspected COVID-19 20131 4004 Z20.718 [id number] MD Brody Guerra [address] [place] [address] 08/17/2021 10:00:54 08/17/2021 10:59:59 Tobacco dependence syndrome 54900219 F17.200 Essential hypertension 82780547 I10 08/17/21: Blood pressure elevated at visit today. Pt states that her blood pressure has been running in the 140s/80s consistent ly. She is agreeable to starting Lisinopril . (Ryann DIAZS) 08/17/19: improved but still high at 136/90. increase dose to 50 and recheck here next week. 07/27/19: 160/100 today and previously hyperkalem ic and so will go ahead and initiate chlorthali done therapy and plan for nurse visit BP recheck in 1-2 weeks to assess response. Chronic ob structive pulmonary disease 31540689 J44.9 08/17/21: Pt states she has increased chest tightness. Lungs are clear on exam today. She is out of her Wixela and has only been using her rescue inhaler. Will refill the Wixela today. Pt advised to call or return to clinic if symptoms worsen. (Ryann RILEY) 01/25/20:br eathing stated as good currently. pt reports recent nausea and concerned could be due to ICS/LABA. certainly can try holding for 5 days to assess response, but rather suspect due to known gastropath y. 07/27/19: due for refills. 03/15/19: chronic smoker who gives history of asthma. has been getting by over past 3.5 years without inhaled therapy. requests inhalers and at this point will restart albuterol MDI for PRN use. if more therapy is needed, then would obtain PFTs. Diabetic p eripheral neuropathy 239946648 E11.40 08/17/21: Pt has blood glucose controlled with lifestyle changes. A1C today is 5.8%. Discussed that A1C is good and that adding 20 to 30 minutes of cardio exercise can help prevent her A1C from increasing further. Foot exam today was mildly abnormal. Her left foot had no feeling at the heel. Her right foot missedd 3 out of the 9 mono-filam ent spots. She has calluses bilaterall y but no wounds. She states that she soaks her feet and scrubs the calluses down. She was given informatio n on diabetic foot care. (Ryann DIAZS) Pre-surger y evaluation 200695638 Z01.818 08/17/21: pt has plan for cataract surgery in 5 days. pt in usual state of health today and is low risk overall and ok to proceed as planned. Lumbar radiculopathy 128 878021 M54.16 [id number] MD Brody Guerra [address] [place] [address] 08/27/2021 11:02:22 08/27/2021 11:23:04 Essential hypertension 10788996 I10 08/17/21: Blood pressure elevated at visit today. Pt states that her blood pressure has been running in the 140s/80s consistent ly. She is agreeable to starting Lisinopril . (Ryann DIAZS) 08/17/19: improved but still high at 136/90. increase dose to 50 and recheck here next week. 07/27/19: 160/100 today and previously hyperkalem ic and so will go ahead and initiate chlorthali done therapy and plan for nurse visit BP recheck in 1-2 weeks to assess response. [id number] MD Brody Guerra [address] [place] [address] 02/06/2022 09:08:46 02/06/2022 10:30:23 Body mass index 30+ - obesity 645497946 Z68.30 Screening mammography 24 631026 Z12.31 Type 2 hayde betshashi mellitus 64280430 E11.42 02/06/22: rechecking a1c and lipids. 01/25/20: recheck >> a1c 5.5. 03/15/19: previously insulin dependent, but lost >100lbs >5 years ago and was told she no longer required medication . has been untreated for years. endorses history of neuropathy with pins and needles sensation in bilateral feet. reports previous benefit to gabapentin and will restart.>> repeat a1c WNL, no new meds necessary for this at this time. Seizure [id number] R56.9 02/06/22: pt reports LOC while sitting reading night before last. became aware indefinite amount of time later with arms rigid near face and patient reports has had R sided headache, difficulty concentrat ing, fatigued, weak, and uncoordina quyen since that time. on exam has bilateral decreased strength diffusely through BUE, poor finger-nos e-finger, positive romberg. no recurrence since. 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 will go ahead and initiate keppra and educated on ADRs. will check basic labs to screen for overt metabolic abnormalit y. will CT head. pt comfortabl e with plan. Chronic ob structive pulmonary disease 32059936 J44.9 08/17/21: Pt states she has increased chest tightness. Lungs are clear on exam today. She is out of her Wixela and has only been using her rescue inhaler. Will refill the Wixela today. Pt advised to call or return to clinic if symptoms worsen. (Ryann DIAZS) 01/25/20:br eathing stated as good currently. pt reports recent nausea and concerned could be due to ICS/LABA. certainly can try holding for 5 days to assess response, but rather suspect due to known gastropath y. 07/27/19: due for refills. 03/15/19: chronic smoker who gives history of asthma. has been getting by over past 3.5 years without inhaled therapy. requests inhalers and at this point will restart albuterol MDI for PRN use. if more therapy is needed, then would obtain PFTs. Ataxia 88033624 R27.0 Fatigue 95372095 R53.83 Thyroid di sorder screening 342532939 Z13.29 [id number] MD Brody [facility]erra [facility] [address] [place] [address] 02/18/2022 11:37:34 02/18/2022 13:25:48 Body mass index 30+ - obesity 018668223 Z68.30 Screening mammography 24 987626 Z12.31 02/18/22: due for screening mammograph y and amenable and ordered. Acute cystitis 43855980 N30.00 02/18/22: on day 6/7 of macrobid with benefit. culture ultimately growing mixed species. reprots she had not realized or mentioned she was having R back pain and dysuria at last visit, but states now these symptoms have resolved on abt. Seizure [id number] R56.9 02/18/22: no further interval episodes and can stop keppra. 02/06/22: pt reports LOC while sitting reading night before last. became aware indefinite amount of time later with arms rigid near face and patient reports has had R sided headache, difficulty concentrat ing, fatigued, weak, and uncoordina quyen since that time. on exam has bilateral decreased strength diffusely through BUE, poor finger-nos e-finger, positive romberg. no recurrence since. 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 will go ahead and initiate keppra and educated on ADRs. will check basic labs to screen for overt metabolic abnormalit y. will CT head. pt comfortabl e with plan. Serum crea tinine above reference range 377841043 R79.89 02/18/22: recheck >> Anemia 041944839 D64.9 02/18/22: mild anemia on screening labs two weeks ago and rechecking today >> Delirium 8150792 R41.0 02/18/22: confusion and ataxia appear to be resolved now with treating occult UTI. SLUMS normal today and exam is improved without further concern for seizure-li ke episode. discussed with patient in detail. such a response to UTI unexpected due to her relatively young age and will obtain MRI brain to evaluate for structural and degenerati ve changes. certainly would not be surprised to see some degree of evidence of microvascu lar disease secondary to HTN, DM2, smoking. [id number] MD Brody Guerra [address] [place] [address] 12/25/2022 15:16:58 12/25/2022 16:33:32 Lumbar radiculopathy 152739151 M54.16 12/25/22: acute on chronic low back pain radiating to R buttock and posterior leg for past 3 weeks since lifting heavy boxes at home. seen in [facility] at that time and reportedly completed MRI lumbar spine with chronic changes and will obtain. rx'ed medrol dose pack with small benefit. reprots remains quite severe, cannot sleep, has difficulty walking. pain out of proportion to exam. discussed options with patient. will administer ketorolac today and rx higher dose prednisone burst as well as tizanidine and plan to RTC several weeks to assess response. pt comfortabl e with plan. Essential hypertension 97140649 I10 12/25/22: 142/100 in setting of acute pain and will follow. 08/29/21: portal: cough with lisinopril and will switch to losartan 08/17/21: Blood pressure elevated at visit today. Pt states that her blood pressure has been running in the 140s/80s consistent ly. She is agreeable to starting Lisinopril . (Ryann RILEY) 08/17/19: improved but still high at 136/90. increase dose to 50 and recheck here next week. 07/27/19: 160/100 today and previously hyperkalem ic and so will go ahead and initiate chlorthali done therapy and plan for nurse visit BP recheck in 1-2 weeks to assess response. Diabetic p eripheral neuropathy 835875811 E11.40 12/25/22: no longer taking effexor due to lack of perceived benefit. 08/17/21: Pt has blood glucose controlled with lifestyle changes. A1C today is 5.8%. Discussed that A1C is good and that adding 20 to 30 minutes of cardio exercise can help prevent her A1C from increasing further. Foot exam today was mildly abnormal. Her left foot had no feeling at the heel. Her right foot missedd 3 out of the 9 mono-filam ent spots. She has calluses bilaterall y but no wounds. She states that she soaks her feet and scrubs the calluses down. She was given informatio n on diabetic foot care. (Ryann DIAZS) Depressive disorder 3831 9007 F32.A 12/25/22: PHQ 19 today, pt states only due to her acute pain. [id number] MD Brody Guerra [facility] [address] [place] [address] 01/08/2023 09:59:17 01/08/2023 11:02:08 Lumbar radiculopathy 881646617 M54.16 01/08/23: reports back pain markedly improved with steroids. reprots dizziness/ drowsiness with tizanidine and has used only rarely. 12/25/22: acute on chronic low back pain radiating to R buttock and posterior leg for past 3 weeks since lifting heavy boxes at home. seen in [facility] at that time and reportedly completed MRI lumbar spine with chronic changes and will obtain. rx'ed medrol dose pack with small benefit. reprots remains quite severe, cannot sleep, has difficulty walking. pain out of proportion to exam. discussed options with patient. will administer ketorolac today and rx higher dose prednisone burst as well as tizanidine and plan to RTC several weeks to assess response. pt comfortabl e with plan. Essential hypertension 42377770 I10 01/08/23: much improved at 122/84 12/25/22: 142/100 in setting of acute pain and will follow. 08/29/21: portal: cough with lisinopril and will switch to losartan 08/17/21: Blood pressure elevated at visit today. Pt states that her blood pressure has been running in the 140s/80s consistent ly. She is agreeable to starting Lisinopril . (Ryann DIAZS) 08/17/19: improved but still high at 136/90. increase dose to 50 and recheck here next week. 07/27/19: 160/100 today and previously hyperkalem ic and so will go ahead and initiate chlorthali done therapy and plan for nurse visit BP recheck in 1-2 weeks to assess response. Diabetic p eripheral neuropathy 324743611 E11.40 01/08/23: repeat a1c reassuring at 5.6 12/25/22: no longer taking effexor due to lack of perceived benefit. 08/17/21: Pt has blood glucose controlled with lifestyle changes. A1C today is 5.8%. Discussed that A1C is good and that adding 20 to 30 minutes of cardio exercise can help prevent her A1C from increasing further. Foot exam today was mildly abnormal. Her left foot had no feeling at the heel. Her right foot missedd 3 out of the 9 mono-filam ent spots. She has calluses bilaterall y but no wounds. She states that she soaks her feet and scrubs the calluses down. She was given informatio n on diabetic foot care. (Ryann DIAZS) Depressive disorder 3548 9007 F32.A 01/08/23: mood stated as improved 12/25/22: PHQ 19 today, pt states only due to her acute pain. Cervical radiculopathy 75567784 M54.12 01/08/23: reports uncertain benefit to topiramate but would like to continue. 08/12/19: phone call: MRI denied due to lack of 6 weeks of physiother apy and so will order PT 07/27/19: minimal benefit to gabapentin with adverse effects of decreased concentrat ion. reports previous benefit and tolerance from lyrica and so will switch. Eruption 035611709 R21 01/08/23: very subtle nonspecifi c eruption to bilateral lower legs. pruritic. can trial [facility] [id number] ESSENCE [facility] [address] [place] [address] 11/28/2023 09:06:46 11/28/2023 09:46:15 Type 2 diabetes mellitus 52376633 E11.42 11/28/23: a1c 5.4 without meds. will remove dx 02/06/22: rechecking a1c and lipids. 01/25/20: recheck >> a1c 5.5. 03/15/19: previously insulin dependent, but lost >100lbs >5 years ago and was told she no longer required medication . has been untreated for years. endorses history of neuropathy with pins and needles sensation in bilateral feet. reports previous benefit to gabapentin and will restart.>> repeat a1c WNL, no new meds necessary for this at this time. Smoker 83720622 F17.200 Essential hypertension 83804852 I10 11/28/23: pt stopped all meds 4 months ago or so. BP is 196/92 today and reports fatigue, dizziness, difficulty concentrat ing. symptoms likely due to uncontroll ed HTN and discussed with pt in detail and will obtain routine labs, restart meds and RTC two weeks to assess response. ED if any worsening in meantime. pt comfortabl e with plan. 01/08/23: much improved at 122/84 12/25/22: 142/100 in setting of acute pain and will follow. 08/29/21: portal: cough with lisinopril and will switch to losartan 08/17/21: Blood pressure elevated at visit today. Pt states that her blood pressure has been running in the 140s/80s consistent ly. She is agreeable to starting Lisinopril . (Ryann DIAZS) 08/17/19: improved but still high at 136/90. increase dose to 50 and recheck here next week. 07/27/19: 160/100 today and previously hyperkalem ic and so will go ahead and initiate chlorthali done therapy and plan for nurse visit BP recheck in 1-2 weeks to assess response. Chronic ob structive pulmonary disease 82104292 J44.9 11/28/23: out of inhalers for several months and using hsuband's albuterol MDI occasional ly with benefit. LCTAB. refilling advair. 08/17/21: Pt states she has increased chest tightness. Lungs are clear on exam today. She is out of her Wixela and has only been using her rescue inhaler. Will refill the Wixela today. Pt advised to call or return to clinic if symptoms worsen. (Ryann DIAZS) 01/25/20:br eathing stated as good currently. pt reports recent nausea and concerned could be due to ICS/LABA. certainly can try holding for 5 days to assess response, but rather suspect due to known gastropath y. 07/27/19: due for refills. 03/15/19: chronic smoker who gives history of asthma. has been getting by over past 3.5 years without inhaled therapy. requests inhalers and at this point will restart albuterol MDI for PRN use. if more therapy is needed, then would obtain PFTs. Chronic ki dney disease stage 3 [id number] N18.30 11/28/23: Cr 1.77 at last check and rechecking today. Thyroid di sorder screening 506361724 Z13.29 Memory impairment 865677 006 R41.3 11/28/23: reports difficulty concentrat ing and screening SLUMS of just 20 today. some of this may be acute secondary to HTN. plan to recheck SLUMS in 2 weeks to compare. Bipolar disorder 1250970 4 F31.9 11/28/23: gives PHQ of 0 [id number] ESSENCE [facility]agen [facility] [address] [place] [address] 12/10/2023 15:11:44 12/10/2023 16:10:12 Body mass index 20-24 - normal 730574211 Z68.22 Pain of ri ght shoulder joint 1789756200 7638159 M25.511 12/10/23: reprots longstandi ng R shoulder pain for years. 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 exam consistent with some rotator cuff pathology. discussed options with patient and will obtain plain films and refer to ortho. pt comfortabl e with plan. Essential hypertension 06717136 I10 12/10/23: 182/100 and will increase losartan to 50mg and RTC two weeks for recheck. 11/28/23: pt stopped all meds 4 months ago or so. BP is 196/92 today and reports fatigue, dizziness, difficulty concentrat ing. symptoms likely due to uncontroll ed HTN and discussed with pt in detail and will obtain routine labs, restart meds and RTC two weeks to assess response. ED if any worsening in meantime. pt comfortabl e with plan. 01/08/23: much improved at 122/84 12/25/22: 142/100 in setting of acute pain and will follow. 08/29/21: portal: cough with lisinopril and will switch to losartan 08/17/21: Blood pressure elevated at visit today. Pt states that her blood pressure has been running in the 140s/80s consistent ly. She is agreeable to starting Lisinopril . (Ryann DIAZS) 08/17/19: improved but still high at 136/90. increase dose to 50 and recheck here next week. 2/18/20: 160/100 today and previously hyperkalem ic and so will go ahead and initiate chlorthali done therapy and plan for nurse visit BP recheck in 1-2 weeks to assess response. Smoker 00351964 F17.200 Chronic ob structive pulmonary disease 85595297 J44.9 11/28/23: out of inhalers for several months and using hsuband's albuterol MDI occasional ly with benefit. LCTAB. refilling advair. 08/17/21: Pt states she has increased chest tightness. Lungs are clear on exam today. She is out of her Wixela and has only been using her rescue inhaler. Will refill the Wixela today. Pt advised to call or return to clinic if symptoms worsen. (Ryann DIAZS) 01/25/20:br eathing stated as good currently. pt reports recent nausea and concerned could be due to ICS/LABA. certainly can try holding for 5 days to assess response, but rather suspect due to known gastropath y. 07/27/19: due for refills. 03/15/19: chronic smoker who gives history of asthma. has been getting by over past 3.5 years without inhaled therapy. requests inhalers and at this point will restart albuterol MDI for PRN use. if more therapy is needed, then would obtain PFTs. Memory impairment 473399 006 R41.3 12/10/23: feels is much clearer and will repeat SLUMS in two weeks. 11/28/23: reports difficulty concentrat ing and screening SLUMS of just 20 today. some of this may be acute secondary to HTN. plan to recheck SLUMS in 2 weeks to compare. Bipolar disorder 9190291 4 F31.9 [id number] ESSENCE Hagen [facility] [address] [place], [place] [address] 2023 14:27:01 2023 15:07:31 Body mass index 20-24 - normal [id number] Z68.23 Essential hypertension [id number] I10 12/24/23: 162/82 today and reviewed BiD BP log. brings in 18 measuremen ts, only 8 of which are at goal. will increase losartan further to 100mg. RTC another two weeks. pt comfortabl e with plan. 12/10/23: 182/100 and will increase losartan to 50mg and RTC two weeks for recheck. 11/28/23: pt stopped all meds 4 months ago or so. BP is 196/92 today and reports fatigue, dizziness, difficulty concentrat ing. symptoms likely due to uncontroll ed HTN and discussed with pt in detail and will obtain routine labs, restart meds and RTC two weeks to assess response. ED if any worsening in meantime. pt comfortabl e with plan. 01/08/23: much improved at 122/84 12/25/22: 142/100 in setting of acute pain and will follow. 08/29/21: portal: cough with lisinopril and will switch to losartan 08/17/21: Blood pressure elevated at visit today. Pt states that her blood pressure has been running in the 140s/80s consistent ly. She is agreeable to starting Lisinopril . (Ryann DIAZS) 08/17/19: improved but still high at 136/90. increase dose to 50 and recheck here next week. 07/27/19: 160/100 today and previously hyperkalem ic and so will go ahead and initiate chlorthali done therapy and plan for nurse visit BP recheck in 1-2 weeks to assess response. Chronic low back pain 27 [id number] M54.50 12/24/23: desires refill flexeril. discussed with patient in detail, particular ly re [employer] depressant effects. will refill on limited basis. Vesicular eczema of hand [id number] L30.8 12/24/23: reports longstandi ng mild dryness and itching to bilateral hands. brother recently diagnosed with dyshidroti c eczema and desires derm referral and will oblige. [id number] [facility] [address] [place], [place] [id number] 01/29/2024 09:08:15 01/29/2024 10:03:38 Serous otitis media [id number] H65.92 01/29/24: several days of intermitte nt L otalgia and popping sensation with decreased hearing and mild intermitte nt vertigo. on exam note air-fluid level on L without other findings. discussed with patient and will cover for AOM with cephalexin given PCN allergy and recommend short term of nasal decongesta nt and will rx afrin and educated on ADRs. Smoker [id number] F17.200 01/29/24: desires cessation. 1.5ppd currently. discussed options in detail. pt interested in patches. educated on administra tion and ADRs in detail. encouragem ent given. [id number] [facility] [address] [place] [address] 04/16/2024 14:59:38 04/16/2024 15:44:59 Depressive disorder [id number] F32.A Diabetic p eripheral neuropathy [id number] E11.40 04/16/24: remains at goal at 5.3 01/08/23: repeat a1c reassuring at 5.6 12/25/22: no longer taking effexor due to lack of perceived benefit. 08/17/21: Pt has blood glucose controlled with lifestyle changes. A1C today is 5.8%. Discussed that A1C is good and that adding 20 to 30 minutes of cardio exercise can help prevent her A1C from increasing further. Foot exam today was mildly abnormal. Her left foot had no feeling at the heel. Her right foot missed 3 out of the 9 mono-filam ent spots. She has calluses bilaterall y but no wounds. She states that she soaks her feet and scrubs the calluses down. She was given informatio n on diabetic foot care. (Ryann DIAZS) Essential hypertension 71622077 I10 04/16/24: 178/102. reports has not taken any medication today. again educated on importance of medication compliance in great detail. will follow. 12/24/23: 162/82 today and reviewed BiD BP log. brings in 18 measuremen ts, only 8 of which are at goal. will increase losartan further to 100mg. RTC another two weeks. pt comfortabl e with plan. 12/10/23: 182/100 and will increase losartan to 50mg and RTC two weeks for recheck. 11/28/23: pt stopped all meds 4 months ago or so. BP is 196/92 today and reports fatigue, dizziness, difficulty concentrat ing. symptoms likely due to uncontroll ed HTN and discussed with pt in detail and will obtain routine labs, restart meds and RTC two weeks to assess response. ED if any worsening in meantime. pt comfortabl e with plan. 01/08/23: much improved at 122/84 12/25/22: 142/100 in setting of acute pain and will follow. 08/29/21: portal: cough with lisinopril and will switch to losartan 08/17/21: Blood pressure elevated at visit today. Pt states that her blood pressure has been running in the 140s/80s consistent ly. She is agreeable to starting Lisinopril . (Ryann DIAZS) 08/17/19: improved but still high at 136/90. increase dose to 50 and recheck here next week. 07/27/19: 160/100 today and previously hyperkalem ic and so will go ahead and initiate chlorthali done therapy and plan for nurse visit BP recheck in 1-2 weeks to assess response. Cervical radiculopathy 17302348 M54.12 04/16/24: saw ortho for R shoulder and pain felt to be radicular in nature. pt requests further treatment. discussed options in great detail. will obtain MRI cervical spine. pt would like to resume pregabalin . discussed previous concerns related to memory and poor balance. pt feels pain relief would be worth these ADRs and will oblige. 01/08/23: reports uncertain benefit to topiramate but would like to continue. 08/12/19: phone call: MRI denied due to lack of 6 weeks of physiother apy and so will order PT 07/27/19: minimal benefit to gabapentin with adverse effects of decreased concentrat ion. reports previous benefit and tolerance from lyrica and so will switch. Active or passive immunization [id number] Z23 [id number] [facility] [address] [place] [address] 04/21/2024 11:07:17 04/21/2024 12:45:51 Body mass index 20-24 - normal [id number] Z68.23 Essential hypertension 93568357 I10 04/16/24: 178/102. reports has not taken any medication today. again educated on importance of medication compliance in great detail. will follow. 12/24/23: 162/82 today and reviewed BiD BP log. brings in 18 measuremen ts, only 8 of which are at goal. will increase losartan further to 100mg. RTC another two weeks. pt comfortabl e with plan. 12/10/23: 182/100 and will increase losartan to 50mg and RTC two weeks for recheck. 11/28/23: pt stopped all meds 4 months ago or so. BP is 196/92 today and reports fatigue, dizziness, difficulty concentrat ing. symptoms likely due to uncontroll ed HTN and discussed with pt in detail and will obtain routine labs, restart meds and RTC two weeks to assess response. ED if any worsening in meantime. pt comfortabl e with plan. 01/08/23: much improved at 122/84 12/25/22: 142/100 in setting of acute pain and will follow. 08/29/21: portal: cough with lisinopril and will switch to losartan 08/17/21: Blood pressure elevated at visit today. Pt states that her blood pressure has been running in the 140s/80s consistent ly. She is agreeable to starting Lisinopril . (Ryann DIAZS) 08/17/19: improved but still high at 136/90. increase dose to 50 and recheck here next week. 07/27/19: 160/100 today and previously hyperkalem ic and so will go ahead and initiate chlorthali done therapy and plan for nurse visit BP recheck in 1-2 weeks to assess response. [id number] [facility] [address] [place] [phone] 05/11/2024 14:48:52 05/11/2024 15:10:27 Body mass index 20-24 - normal [id number] Z68.23 [id number] [facility] [address] [place] [phone] 07/08/2024 13:55:31 07/08/2024 14:39:50 Smoker 60784514 F17.200 Cervical radiculopathy 32358999 M54.12 07/08/24: MRI denied and completed >6 weeks of physical therapy with no benefit whatsoever . will obtain plain films and then likely MRI. pt comfortabl e with plan. 04/16/24: saw ortho for R shoulder and pain felt to be radicular in nature. pt requests further treatment. discussed options in great detail. will obtain MRI cervical spine. pt would like to resume pregabalin . discussed previous concerns related to memory and poor balance. pt feels pain relief would be worth these ADRs and will oblige. 01/08/23: reports uncertain benefit to topiramate but would like to continue. 08/12/19: phone call: MRI denied due to lack of 6 weeks of physiother apy and so will order PT 07/27/19: minimal benefit to gabapentin with adverse effects of decreased concentrat ion. reports previous benefit and tolerance from lyrica and so will switch. Essential hypertension 80385911 I10 07/08/24: improved at 144/84 and will make no changes today and continue to monitor. 04/16/24: 178/102. reports has not taken any medication today. again educated on importance of medication compliance in great detail. will follow. 12/24/23: 162/82 today and reviewed BiD BP log. brings in 18 measuremen ts, only 8 of which are at goal. will increase losartan further to 100mg. RTC another two weeks. pt comfortabl e with plan. 12/10/23: 182/100 and will increase losartan to 50mg and RTC two weeks for recheck. 11/28/23: pt stopped all meds 4 months ago or so. BP is 196/92 today and reports fatigue, dizziness, difficulty concentrat ing. symptoms likely due to uncontroll ed HTN and discussed with pt in detail and will obtain routine labs, restart meds and RTC two weeks to assess response. ED if any worsening in meantime. pt comfortabl e with plan. 01/08/23: much improved at 122/84 12/25/22: 142/100 in setting of acute pain and will follow. 08/29/21: portal: cough with lisinopril and will switch to losartan 08/17/21: Blood pressure elevated at visit today. Pt states that her blood pressure has been running in the 140s/80s consistent ly. She is agreeable to starting Lisinopril . (Ryann RILEY) 08/17/19: improved but still high at 136/90. increase dose to 50 and recheck here next week. 07/27/19: 160/100 today and previously hyperkalem ic and so will go ahead and initiate chlorthali done therapy and plan for nurse visit BP recheck in 1-2 weeks to assess response. Depressive disorder 7328 2224 F32.A Diabetic p eripheral neuropathy 084444392 E11.40 07/08/24: recheck a1c 04/16/24: remains at goal at 5.3 01/08/23: repeat a1c reassuring at 5.6 12/25/22: no longer taking effexor due to lack of perceived benefit. 08/17/21: Pt has blood glucose controlled with lifestyle changes. A1C today is 5.8%. Discussed that A1C is good and that adding 20 to 30 minutes of cardio exercise can help prevent her A1C from increasing further. Foot exam today was mildly abnormal. Her left foot had no feeling at the heel. Her right foot missed 3 out of the 9 mono-filam ent spots. She has calluses bilaterall y but no wounds. She states that she soaks her feet and scrubs the calluses down. She was given informatio n on diabetic foot care. (Ryann DIAZS) Chronic ki dney disease stage 3 [id number] N18.30 07/08/24: recheck labs 11/28/23: Cr 1.77 at last check and rechecking today. Chronic ob structive pulmonary disease 11384743 J44.9 07/08/24: controlled on inhalers. 11/28/23: out of inhalers for several months and using hsuband's albuterol MDI occasional ly with benefit. LCTAB. refilling advair. 08/17/21: Pt states she has increased chest tightness. Lungs are clear on exam today. She is out of her Wixela and has only been using her rescue inhaler. Will refill the Wixela today. Pt advised to call or return to clinic if symptoms worsen. (Ryann DIAZS) 01/25/20:br eathing stated as good currently. pt reports recent nausea and concerned could be due to ICS/LABA. certainly can try holding for 5 days to assess response, but rather suspect due to known gastropath y. 07/27/19: due for refills. 03/15/19: chronic smoker who gives history of asthma. has been getting by over past 3.5 years without inhaled therapy. requests inhalers and at this point will restart albuterol MDI for PRN use. if more therapy is needed, then would obtain PFTs. Chronic low back pain 27 3169592 M54.50 07/08/24: refill. 12/24/23: desires refill flexeril. discussed with patient in detail, particular ly re [employer] depressant effects. will refill on limited basis. Adult [facility] th examination [id number] Z00.00 [id number] [facility] [address] [place] [address] 08/10/2024 13:05:24 08/10/2024 13:34:18 Essential hypertension 87026278 I10 08/10/24: 154/90 today in setting of acute pain and out of losartan and and discussed compliance and will recheck in two weeks. 07/08/24: improved at 144/84 and will make no changes today and continue to monitor. 04/16/24: 178/102. reports has not taken any medication today. again educated on importance of medication compliance in great detail. will follow. 12/24/23: 162/82 today and reviewed BiD BP log. brings in 18 measuremen ts, only 8 of which are at goal. will increase losartan further to 100mg. RTC another two weeks. pt comfortabl e with plan. 12/10/23: 182/100 and will increase losartan to 50mg and RTC two weeks for recheck. 11/28/23: pt stopped all meds 4 months ago or so. BP is 196/92 today and reports fatigue, dizziness, difficulty concentrat ing. symptoms likely due to uncontroll ed HTN and discussed with pt in detail and will obtain routine labs, restart meds and RTC two weeks to assess response. ED if any worsening in meantime. pt comfortabl e with plan. 01/08/23: much improved at 122/84 12/25/22: 142/100 in setting of acute pain and will follow. 08/29/21: portal: cough with lisinopril and will switch to losartan 08/17/21: Blood pressure elevated at visit today. Pt states that her blood pressure has been running in the 140s/80s consistent ly. She is agreeable to starting Lisinopril . (Ryann DIAZS) 08/17/19: improved but still high at 136/90. increase dose to 50 and recheck here next week. 07/27/19: 160/100 today and previously hyperkalem ic and so will go ahead and initiate chlorthali done therapy and plan for nurse visit BP recheck in 1-2 weeks to assess response. Depressive disorder 354 9007 F32.A Smoker 34487135 F17.200 Body mass index 20-24 - normal [id number] Z68.23 Cervical radiculopathy 82518065 M54.12 08/10/24: reports acute on chronic R neck and RUE pain and paresthesi as since yesterday without injury. has MRI scheduled for 08/23. taking lyrica as rx'ed. has decreased RUE strength compared to baseline and will trial steroid burst and short course PRN tramadol and RTC two weeks to discuss response pt comfortabl e with plan. 07/08/24: MRI denied and completed >6 weeks of physical therapy with no benefit whatsoever . will obtain plain films and then likely MRI. pt comfortabl e with plan. 04/16/24: saw ortho for R shoulder and pain felt to be radicular in nature. pt requests further treatment. discussed options in great detail. will obtain MRI cervical spine. pt would like to resume pregabalin . discussed previous concerns related to memory and poor balance. pt feels pain relief would be worth these ADRs and will oblige. 01/08/23: reports uncertain benefit to topiramate but would like to continue. 08/12/19: phone call: MRI denied due to lack of 6 weeks of physiother apy and so will order PT 07/27/19: minimal benefit to gabapentin with adverse effects of decreased concentrat ion. reports previous benefit and tolerance from lyrica and so will switch. [id number] [facility] [address] [place] [address] 08/17/2024 14:29:27 08/18/2024 08:13:16 Smoker 74947396 F17.200 Cervical radiculopathy 63030077 M54.12 08/17/24: reports significan t benefit to prednisone and tramadol. requests refill tramadol for rare PRN use and discussed with patient in detail and will refill once only. 08/10/24: reports acute on chronic R neck and RUE pain and paresthesi as since yesterday without injury. has MRI scheduled for 08/23. taking lyrica as rx'ed. has decreased RUE strength compared to baseline and will trial steroid burst and short course PRN tramadol and RTC two weeks to discuss response pt comfortabl e with plan. 07/08/24: MRI denied and completed >6 weeks of physical therapy with no benefit whatsoever . will obtain plain films and then likely MRI. pt comfortabl e with plan. 04/16/24: saw ortho for R shoulder and pain felt to be radicular in nature. pt requests further treatment. discussed options in great detail. will obtain MRI cervical spine. pt would like to resume pregabalin . discussed previous concerns related to memory and poor balance. pt feels pain relief would be worth these ADRs and will oblige. 01/08/23: reports uncertain benefit to topiramate but would like to continue. 08/12/19: phone call: MRI denied due to lack of 6 weeks of physiother apy and so will order PT 07/27/19: minimal benefit to gabapentin with adverse effects of decreased concentrat ion. reports previous benefit and tolerance from lyrica and so will switch. Essential hypertension 98947971 I10 08/10/24: 154/90 today in setting of acute pain and out of losartan and and discussed compliance and will recheck in two weeks. 07/08/24: improved at 144/84 and will make no changes today and continue to monitor. 04/16/24: 178/102. reports has not taken any medication today. again educated on importance of medication compliance in great detail. will follow. 12/24/23: 162/82 today and reviewed BiD BP log. brings in 18 measuremen ts, only 8 of which are at goal. will increase losartan further to 100mg. RTC another two weeks. pt comfortabl e with plan. 12/10/23: 182/100 and will increase losartan to 50mg and RTC two weeks for recheck. 11/28/23: pt stopped all meds 4 months ago or so. BP is 196/92 today and reports fatigue, dizziness, difficulty concentrat ing. symptoms likely due to uncontroll ed HTN and discussed with pt in detail and will obtain routine labs, restart meds and RTC two weeks to assess response. ED if any worsening in meantime. pt comfortabl e with plan. 01/08/23: much improved at 122/84 12/25/22: 142/100 in setting of acute pain and will follow. 08/29/21: portal: cough with lisinopril and will switch to losartan 08/17/21: Blood pressure elevated at visit today. Pt states that her blood pressure has been running in the 140s/80s consistent ly. She is agreeable to starting Lisinopril . (Ryann RILEY) 08/17/19: improved but still high at 136/90. increase dose to 50 and recheck here next week. 07/27/19: 160/100 today and previously hyperkalem ic and so will go ahead and initiate chlorthali done therapy and plan for nurse visit BP recheck in 1-2 weeks to assess response. Right rota tor cuff syndrome [id number] 92871 M75.101 08/17/24: continued anterolate ral shoulder pain with abduction, flexion and rotation. plain films showed AC OA. exam remains consistent with rotator cuff etiology in setting of overlappin g cervical radiculopa thy. discussed with patient in detail and has MRI cervical spine upcoming and inclined to follow that imaging and reassess. pt comfortabl e with plan. 12/10/23: reports longstandi ng R shoulder pain for years. 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 exam consistent with some rotator cuff pathology. discussed options with patient and will obtain plain films and refer to ortho. pt comfortabl e with plan. Health Concerns Section Related Observation LastModified by Organization Detai ls LastModified Time None Recorded Concern Status LastModified by Organization Details LastModified Time None Recorded Advance Directives Directive N: Payers Insurance Date Sequence Insurance Name Policy Number Policy Benson Covered Member ID Benson Member ID Guarantor Name 11/28/2023 1 [facility] - DOS ON OR AFTER 20 (MEDICAID REPLACEMENT - HMO) Mira Ng [id number] Mira Ng 08/17/2024 1 [facility] - DOS ON OR AFTER 20 (MEDICAID REPLACEMENT - HMO) Mira Ng [id number] Mira Ng 08/14/2021 1 [employer] [facility] [facility] [place] - DOS ON OR AFTER 2020 (MEDICAID REPLACEMENT - HMO) Mira Ng [id number] Mira Ng 05/11/2024 1 [facility] - DOS PRIOR TO 2025 (MEDICAID REPLACEMENT - HMO) [id number] Mira Ng [id number] Mira Ng 05/21/2019 1 [place] [facility] Mira Scott [id number] Mira Ng 06/22/2020 1 [facility] (MEDICAID HMO) Mira Ng [id number] Mira Ng Notes Date Note Type Note Provider Name and Address Organization Details Recorded Time 07/08/2024 text/html ROS as noted in the HPI Pt presents for well check.Pt denies fever, chills, headaches, syncope, chest pain, shortness of breath, abdominal pain, NVD continues to have chronic neck pain with cervical radiculopathy that radiates down RUE with muscle weakness. since last seen, did complete greater than 6 weeks of supervised physical therapy without any benefit. Lon Recio PA-C Attn: [address] [place], [address], [facility] 07/08/2024 14:34:55 08/10/2024 text/html ROS as noted in the HPI reports acute on chronic R neck and RUE pain and paresthesias since yesterday without injury. has MRI scheduled for 08/23. taking lyrica as rx'ed. denies new activities. feels R arm a little weaker than baseline. denies redness, swelling, fever, chills. Lon Recio PA-C Attn: [address] [place], [address], [facility] 08/10/2024 14:19:24 08/17/2024 text/html ROS as noted in the HPI Pt presents for f/u R shoulder and neck pain. completed prednisone and tramadol scripts with significant benefit. reports neck less painful but shoulder remains so with flexion, abduction >90 degrees and with internal/external rotation. denies new injury or current RUE paresthesias. Lon Recio PA-C Attn: [address] [place], [address], [facility] 08/17/2024 20:25:18 OBGyn Episode No OBEpisode recorded.
--- OUTSIDE RECORDS SUMMARY | 2025-04-22 17:34 | XMS_ITS | Encounter Summary ---
Author Organization [facility] Address [facility] [place] [address] Care Team Providers Care Sales Service Promoter Name Role Phone Lon Recio PA-C Primary Care Provider Encounter Details Date Type Department Care Team (Late st Contact Info) Description 07/25/[address] [facility] Conversion [address] [place] [address] , Generic Conversion, Social History Tobacco Use [...] filedocumented in this encounter Care Teams Sales Service Promoter Relationship Specialty Start Date End Date Lon Recio PA-C PCP - General PHYSICIAN COMMERCIAL SALES DIRECTOR 08/19/24 documented as of this encounter
--- OUTSIDE RECORDS SUMMARY | 2025-04-22 17:35 | XMS_ITS | Patient Health Record ---
Author Organization [facility] [place], [place] Address [address] [place], [place] [address] Care Team Providers Care Party Planner Name Role Phone FE CARDOSO Primary Care Provider Anthony Duff Unavailable [phone] ALLERGIES Allergen (clinical drug ingredient) Drug/Non Drug [...] Active confirmed Cervical disc disorder with radiculopathy (676662998) Problem Cervical disc disorder at C5-C6 level with radiculopathy (M50.122) Active confirmed Cervical radiculopathy (32380105) Problem Cervical disc disorder at C6-C7 level with radiculopathy (M50.123) Active confirmed Cervical disc disorder with radiculopathy (124794443) Problem Radiculopathy, lumbosacral region (M54.17) Active confirmed Lumbosacral radiculopathy (0443375) Problem Spondylosis without myelopathy or radiculopathy, cervical 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) Active confirmed Cervical spondylosis without myelopathy (543783255) VITAL SIGNS Heart Rate 85 /min 03/08/2025 Temperature 97.4 degrees Fahrenheit 03/08/2025 Respiratory Rate 18 /min 03/08/2025 Blood pressure diastolic 78 mm Hg 03/08/2025 Oximetry 94 % 03/08/2025 Height 69.5 in 03/08/2025 Blood pressure systolic 142 mm Hg 03/08/2025 Weight 159 lbs 03/08/2025 BMI 23.14 kg/m2 03/08/2025 Encounters Encounter Location Date Provider Diagnosis Billie Christensen [facility],[address] [address] 11/23/2024 Anthony Montez Cervical disc disord er at C4-C5 level with radiculopathy M50.121 ; Cervical disc disorder at C5-C6 level with radiculopathy M50.122 ; Cervical disc disorder at C6-C7 level with radiculopathy M50.123 ; Spondylosis without myelopathy or radiculopathy, cervical region M47.812 and Pain in right shoulder M25.511 [facility] [address] [place] [address] 11/23/2024 Anthony Montez [facility] [address] [place] [address] [facility] [address] [place] [address] [facility] [address] [place] [address] 12/07/2024 Anthony Montez Cervical disc disord er at C4-C5 level with radiculopathy M50.121 ; Cervical disc disorder at C5-C6 level with radiculopathy M50.122 and Cervical disc disorder at C6-C7 level with radiculopathy M50.123 [facility] [address] [place] [address] 01/25/2025 Anthony Tc Cervical disc disord er at C4-C5 level with radiculopathy M50.121 ; Radiculopathy, lumbosacral region M54.17 ; Cervical disc disorder at C5-C6 level with radiculopathy M50.122 ; Cervical disc disorder at C6-C7 level with radiculopathy M50.123 ; Spondylosis without myelopathy or radiculopathy, cervical region M47.812 and Pain in right shoulder M25.511 [facility],[place] [address] [place] [address] 01/25/20[facility] [address] [place] [address] 03/08/2025 Anthony Montez Cervical disc disord er [...] The U.S. Federation of State Medical Boards, [place] Pain Society, [place] Academy of Pain Medicine and [place] Society of Interventional Pain Physicians all recommended [...] or other Controlled substances or medications with PLASTICS TECHNICIAN effects are serious and include but not [...] The economic costs of pain in the [facility] States. J Pain 2012;13:715-24 2. Jack JW, Hector GR, Pete GE, et al. Urine drug testing in the treatment of chronic noncancer pain in a [place] private neuroscience practice; The potential effect of Medicare benefit changes in [place]. Pain Physicians 2010;13:187-94 3. Alex EJ, Dipti YH, Vinh DL, et al. Urine drug testing of chronic pain patients; Licit and Illicit drug patterns. J Anal Toxicol 2008;32:530-43 4. Zunilda Mccartney, Jay KA, Claribel [place], et al. Controlled substance abuse and illicit drig use in chronic pain patients: An evaluation of multiple variables. Pain Physicians 2006;9:215-25 5. Donato OCAMPO, Fatou De lValle P, et al. Analysis and interpretation of [...] Provider Name:Anthony Mojica shannon, 05/17/2025 01:40:00 PM, [address] [place] [address], [phone], MEDICAL (GENERAL) HISTORY Medical History History ICD [...]
== END 2025-04-22 13:14 | disposition home or self-care (01) ==
LOC: CHSLAB 13:14
PROVIDERS: PCP Family Medicine; Visit Provider Anesthesiology
DX: I12.9 Hypertensive chronic kidney disease with stage 1 through stage 4 chronic kidney disease, or unspecified chronic kidney disease (principal); N18.4 Chronic kidney disease, stage 4 (severe); E87.5 Hyperkalemia
CPT/HCPCS: 36415; 80048; 85610; 85730; 93005

== ENCOUNTER 2025-04-26 00:54 | Day surgery (SDC) | payer OTHER, SELFPAY ==
--- OUTSIDE RECORDS SUMMARY | 2024-11-23 04:00 | XMS_ITS ---
Author Organization [facility], [place] Address [address] [place], [place] [id number] Care Team Providers Care Welding Machine Operator Ultrasonic Name Role Phone FE CARDOSO Primary Care Provider Anthony Duff Unavailable [phone] ALLERGIES Allergen (clinical drug ingredient) Drug/Non Drug Allergy documented on EMR Reaction Allergy Type Onset Date Status Venomil Honey Bee Venom Unknown Drug Allergy Active codeine Codeine Unknown Drug Allergy Active Substance with penicillin structure and antibacterial mechanism of action (substance) Penicillins Unknown Drug Allergy Active REASON FOR VISIT 1a. Initial Evaluation MEDICATIONS Medication SIG (Take, Route, Frequency, Duration) Notes Start Date End Date Status Cyclobenzaprine HCl 10 MG 1 tablet at bedtime as needed Orally Once a day for 30 day(s) Active Losartan Potassium 100 MG 1 tablet Orally Once a day for 30 day(s) Active Fluticasone-Salmeterol 100-50 MCG/ACT 1 puff Inhalation Twice a day Active Pregabalin 75 MG 1 capsule Orally bid Active Metoprolol Succinate 100 MG 1 capsule Orally Once a day for 30 day(s) Active Chlorthalidone 50 MG 1 tablet in the morning with food Orally for 30 day(s) Active traMADol HCl 50 MG 1 tablet as needed Orally Once a day states she hasnt had tramadol for 3 months Not-Taking Albuterol Sulfate HFA 108 (90 Base) MCG/ACT 1 puff as needed Inhalation every 4 hrs Active SOCIAL HISTORY Tobacco Use: Social History Observation Description Date Details (start date - stop date) Current Smoker NA - NA Sex Assigned At : Social History Observation Description Sex Assigned At Unknown Tobacco Use/Smoking Question Answer Notes Are you a current smoker How often do you smoke cigarettes? every day How many cigarettes a day do you smoke? 11-20 Alcohol Screen Question Answer Notes Did you have a drink contain ing alcohol in the past year? Yes How often did you have a dri nk containing alcohol in the past year? Monthly or less (1 point) Points 1 Interpretation Negative Tobacco use other than smoking: Question Answer Notes Are you an other tobacco user? No PROBLEMS Problem Type ICD Code Onset Dates Problem Status W/U Status Risk SNOMED Code Notes Problem Cervical disc disorder at C4-C5 level with radiculopathy (M50.121) Active confirmed Cervical disc disorder with radiculopathy (334693044) Problem Cervical disc disorder at C5-C6 level with radiculopathy (M50.122) Active confirmed Cervical radiculopathy (39199380) Problem Cervical disc disorder at C6-C7 level with radiculopathy (M50.123) Active confirmed Cervical disc disorder with radiculopathy (563575074) Problem Spondylosis without myelopathy or radiculopathy, cervical 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) Active confirmed Cervical spondylosis without myelopathy (249585356) VITAL SIGNS Temperature 97.7 degrees Fahrenheit 11/24/19 25 Blood pressure systolic 130 mm Hg 11/24/19 25 Blood pressure diastolic 78 mm Hg 025 Heart Rate 82 /min 11/23/2024 Respiratory Rate 16 /min 11/23/2024 Height 69.5 in 11/23/2024 Weight 169.6 lbs 11/23/2024 BMI 24.68 kg/m2 11/23/2024 Oximetry 94 % 11/23/2024 Encounters Encounter Location Date Provider Diagnosis [address] [address] 11/23/2024 Anthony Montez Cervical disc disord er at C4-C5 level with radiculopathy M50.121 ; Cervical disc disorder at C5-C6 level with radiculopathy M50.122 ; Cervical disc disorder at C6-C7 level with radiculopathy M50.123 ; Spondylosis without myelopathy or radiculopathy, cervical region M47.812 and Pain in right shoulder M25.511 ASSESSMENTS Encounter Date Diagnosis Assessment Notes Treatment Notes Treatment Clinical Notes Section Notes 11/23/2024 Cervical disc disorder at C4-C5 level with radiculopathy (ICD-10 - M50.121) Patient denies loss of taste or smell, fever, chills, bodyaches, runny nose, sore throat, dry cough, diffculty breathing, chest congestion or cold or any new GI s/s. Patient denies any travel within or outside [place] within last 4 weeks. Patient denies any contact with anyone who had travelled within or outside [place] within last 4 weeks. Patient denies any contact with anyone with loss of taste or smell, fever, chills, bodyaches, runny nose, sore throat, dry cough, diffculty breathing, chest congestion or cold or anyone with new GI s/s We will order Drug Screen Today. The [place] Federation of State Medical Boards, [place] [employer], [place] [employer] and [place] Society of Interventional Pain Physicians all recommended routine Drug Screen for patients with chronic pain in treatment. Chronic pain patients not receiving controlled substances can also benefit from random Drug Screen to check compliance with their pain management regimen. There are higher rates of drug misuse, abuse, and addiction in patients with chronic pain. The challenges for caring for and treating acute / chronic pain patients on Opioids / Opiates or other Controlled substances or medications with CORRECTIONS SPECIALIST effects are serious and include but not limited to: patients providing false and misleading medical histories, not maintaining compliance with therapeutic drug regimens, and using illicit drugs. Patient was told that non-compliant behavior with prescribed medications such as combining medications or using illicit drugs with legally prescribed ones can result in harm to themselves and others. Drug Screen can help improve patient safety as it relates to accurately establishing medication use, identifying dangerous drug to drug cross-reactions, and avoiding false patient dismissals based on inconsistent immunoassay tests, to monitor patient compliance to any side effects and cross-reactions. References: 1. Esau DJ, Sameer P. The economic costs of pain in the [facility]. J Pain 2012;13:715-24 2. Jack JW, Hector GR, Pete GE, et al. Urine drug testing in the treatment of chronic noncancer pain in a [place] private neuroscience practice; The potential effect of Medicare benefit changes in [place]. Pain Physicians 2010;13:187-94 3. Alex EJ, Dipti YH, Vinh DL, et al. Urine drug testing of chronic pain patients; Licit and Illicit drug patterns. J Anal Toxicol 2008;32:530-43 4. Jay Galindo KA, Claribel KS, et al. Controlled substance abuse and illicit drig use in chronic pain patients: An evaluation of multiple variables. Pain Physicians 2006;9:215-25 5. Fatou Sewell SE, et al. Analysis and interpretation of drug testing results from patients on chronic pain therapy: A clinical laboratory perspective. Clin Chem Lab Med 2009;47:971-6 6. Jaswinder Pompa RN, Pharm LD, et al. Urine toxicology screening among chronic pain patients on opioid therapy: Frequency and predictability of abnormal findings. Clin J Pain 2007;23:173-9. 7. Jim BRICEÑO, Zunilda Escobar X et al. Urine drug testing in chronic pain. Pain Physician 2011;14:123-43 8. Richy Galindo V, et al. Does random urine drug testing reduce illicit drug use in chronic pain patients receiving opioids? Pain Physican 2006;9:123-9 9. Zunilda Mccartney, Kellen S, Nellie AM, et al. Monitoring opioid adherence in chronic pain patients: Tools, techniques, and utility. Pain Physicians 2008;11:s155-80 10. Zunilda Mccartney, Ricardo Y, Fara FULLER, et al. Comparative evaluation of the accuracy of benzodiazepine testing in chronic pain patients utilizing immunoassay with liquid chromatography tandem mass spectrometry(LC/MS /MS) of urine drug testing. Pain physician 2001;14:259-70 11. Phil C, Edith P, West R, et al. LC-MS/MS extends the range of drug analysis in pain patients. Ther Drug Monit 2009;31:746-8 12. Emigdio BJuli T. Urine drug testing for pain management. Clin Lab Med 2012;32:379-90 13. Donato OCAMPO, Polo LANCASTER, Chelsea MIDDLETON, et al. Significant cost savings achieved by in-sourcing urine drug testing for monitoring medication compliance in pain management. Clin Rishi Acta 2013;422:10-4 14. Donato OCAMPO, Nicholas , Michaela MONTES DE OCA. Optimizing urine drug testing for monitoring medication compliance in pain management. Pain Med 2013;14:1813-20 11/23/2024 Cervical disc disorder at C5-C6 level with radiculopathy (ICD-10 - M50.122) 11/23/2024 Cervical disc disorder at C6-C7 level with radiculopathy (ICD-10 - M50.123) 11/23/2024 Spondylosis without myelopathy or radiculopathy, cervical region (ICD-10 - M47.812) 11/23/2024 Pain in right shoulder (ICD-10 - M25.511) PLAN OF TREATMENT Treatment Notes Assessment Notes Cervical disc disorder at C4 -C5 level with radiculopathy Patient denies loss of taste or smell, fever, chills, bodyaches, runny nose, sore throat, dry cough, diffculty breathing, chest congestion or cold or any new GI s/s. Patient denies any travel within or outside [place] within last 4 weeks. Patient denies any contact with anyone who had travelled within or outside [place] within last 4 weeks. Patient denies any contact with anyone with loss of taste or smell, fever, chills, bodyaches, runny nose, sore throat, dry cough, diffculty breathing, chest congestion or cold or anyone with new GI s/s We will order Drug Screen Today. The [place] Federation of State Medical Boards, [place] [employer], [place] [employer] of [employer] Medicine and [place] Society of Interventional Pain Physicians all recommended routine Drug Screen for patients with chronic pain in treatment. Chronic pain patients not receiving controlled substances can also benefit from random Drug Screen to check compliance with their pain management regimen. There are higher rates of drug misuse, abuse, and addiction in patients with chronic pain. The challenges for caring for and treating acute / chronic pain patients on Opioids / Opiates or other Controlled substances or medications with CORRECTIONS SPECIALIST effects are serious and include but not limited to: patients providing false and misleading medical histories, not maintaining compliance with therapeutic drug regimens, and using illicit drugs. Patient was told that non-compliant behavior with prescribed medications such as combining medications or using illicit drugs with legally prescribed ones can result in harm to themselves and others. Drug Screen can help improve patient safety as it relates to accurately establishing medication use, identifying dangerous drug to drug cross-reactions, and avoiding false patient dismissals based on inconsistent immunoassay tests, to monitor patient compliance to any side effects and cross-reactions. References: 1. Esau KESSLER, Sameer P. The economic costs of pain in the [facility]. J Pain 2012;13:715-24 2. Jack JW, Hector GR, Pete GE, et al. Urine drug testing in the treatment of chronic noncancer pain in a [place] private neuroscience practice; The potential effect of Medicare benefit changes in [place]. Pain Physicians 2010;13:187-94 3. Alex EJ, Dipti YH, Vinh DL, et al. Urine drug testing of chronic pain patients; Licit and Illicit drug patterns. J Anal Toxicol 2008;32:530-43 4. Zunilda Mccartney, Jay KA, Claribel KS, et al. Controlled substance abuse and illicit drig use in chronic pain patients: An evaluation of multiple variables. Pain Physicians 2006;9:215-25 5. Donato OCAMPO, Fatou Del Valle P, et al. Analysis and interpretation of drug testing results from patients on chronic pain therapy: A clinical laboratory perspective. Clin Chem Lab Med 2009;47:971-6 6. Jaswinder Pompa RN, Pharm LD, et al. Urine toxicology screening among chronic pain patients on opioid therapy: Frequency and predictability of abnormal findings. Clin J Pain 2007;23:173-9. 7. Jim BRICEÑO, Zunilda Escobar X et al. Urine drug testing in chronic pain. Pain Physician 2011;14:123-43 8. Richy Galindo V, et al. Does random urine drug testing reduce illicit drug use in chronic pain patients receiving opioids? Pain Physican 2006;9:123-9 9. Zunilda Mccartney, Kellen S, Nellie AM, et al. Monitoring opioid adherence in chronic pain patients: Tools, techniques, and utility. Pain Physicians 2008;11:s155-80 10. Zunilda Mccartney, Ricardo Y, Fara FULLER, et al. Comparative evaluation of the accuracy of benzodiazepine testing in chronic pain patients utilizing immunoassay with liquid chromatography tandem mass spectrometry(LC/MS/MS) of urine drug testing. Pain physician 2001;14:259-70 11. Phil C, Edith P, Gee R, et al. LC-MS/MS extends the range of drug analysis in pain patients. Ther Drug Monit 2009;31:746-8 12. Juli Rivera. Urine drug testing for pain management. Clin Lab Med 2012;32:379-90 13. Donato OCAMPO, Polo LANCASTER, Chelsea ML, et al. Significant cost savings achieved by in-sourcing urine drug testing for monitoring medication compliance in pain management. Clin Rishi Acta 2013;422:10-4 14. Donato OCAMPO, Nicholas , Michaela MONTES DE OCA. Optimizing urine drug testing for monitoring medication compliance in pain management. Pain Med 2013;14:1813-20 Pending Test Test Name Order Date MRI : Shoulder, right 11/23/2024 Next Appt Details Follow Up: 2 Weeks, 2 Months , Reason: Injection,Follow Up - In Office Provider Name:Anthony Mojica shannon, 05/17/2025 01:40:00 PM, [address] [place] [address], [phone], Progress Notes * Examination Category Sub-Category Detail Notes Category Not es Cervical Spine/Neck RANGE OF MOTION OF NECK: dec reased extension, decresed flexion, decreased lateral bending on the Right side, decreased lateral rotation on the Right side FACET JOINT LOADING: Negative on the Rig ht side, Negative on the Left side REFLEXES: SENSATIONS: normal Right upper e xtremity, normal Left upper extremity MOTOR STRENGTH: 5/5, in right upper extermity,5/5, in left upper extremity INSPECTION/PALPATION: mild TTP at, C4, C 5, C6, C7, paraspinal muscles CERVICAL DISTRACTION TEST: Positive on t he Right side SPURLING'S TEST: Positive on the Righ t Side Right shoulder INSPECTION: within normal li mits, no atrophy, no muscle asymmetry, skin is intact PALPATION: TTP over the shoulde r joint SHOULDER RANGE OF MOTION: decreased exte nsion, decreased abduction, decreased external rotation General Examination GENERAL APPEARANCE: normal, alert, in no acute distress, well nourished HEAD: normocephalic, atrau matic EYES: normal, extraocular movement intact (EOMI), upper eyelids normal, lower eyelids normal, conjunctiva clear EARS: external ear normal NOSE: nares patent NECK/THYROID: neck supple, no cerv ical lymphadenopathy, no thyromegaly, trachea midline HEART: no murmurs, rubs, ga llops, regular rate and rhythm, S1, S2 normal LUNGS: clear to auscultatio n bilaterally, good air movement, no wheezes, rales, rhonchi NEUROLOGIC: alert and oriented, cognitive exam grossly normal, cooperative with exam SKIN: no rashes, no suspic ious lesions, normal hair distribution, warm and dry PSYCH: alert, oriented, compensation coordinator perative with exam, good eye contact, judgement and insight good, mood/affect full range, no auditory or visual hallucinations, speech clear, no suicidal or homicidal ideation History and Physical Notes * HPI (History of Present Illness) Category Sub-Category Detail Notes Category Not es Interim History Patient joseph valdez referred for Neck and R Shoulder pain. Pain interferes with activities of daily living (ADL) including bathing/showering, grooming, dressing, getting in and out of bed and walking from one location to another Chronic Pain The pain began many, years ago The Pain is located in the neck, right s houlder The Pain radiates to right sh oulder and arm The pain score today is 5/10, at rest, 8 /10, with activity The nature of the pain is constant, vari es in intensity, sharp, shooting, throbbing, burning Aggravating factors for pain include tur keith the neck certain ways Alleviating factors for pain include not vickie specific Associated sign and symptoms include rig ht, upper extremity, tingling, numbness, weakness, bladder incontinence - stress CONSERVATIVE TREATMENTS HAVE INCLUDED: T RIED FOR ATLEAST 8 WEEKS IN THE LAST 6 MONTHS INCLUDE - , ICE, HEAT, MASSAGE, OTC TOPICAL PAIN CREAMS/PATCHES, TYLENOL, NSAIDS, NEUROMODULATING MEDICATIONS, MUSCLE RELAXERS, OPIOIDS, PHYSICAL THERAPY (PT) - LAST DONE FOR 6 WEEKS IN 2024, THAT DID NOT HELP Prior testing include X Ray, MRI scan Patient has physical restric tions, has work limitations Patient denies bowel incontinence
--- OUTSIDE RECORDS SUMMARY | 2024-11-23 05:39 | XMS_ITS ---
Author Organization [facility] [place], [place] Address [address] [facility] [facility] [address] [place], [place] [id number] Care Team Providers Care Manager Rn Case Name Role Phone FE CARDOSO Primary Care Provider Anthony Duff Unavailable [phone] REASON FOR VISIT MRI R SHOULDER PA MEDICATIONS Medication SIG (Take, Route, Fr equency, Duration) Notes Start Date End Date Status ALPRAZolam 0.5 MG as directed Orally 1 - 2 tabs 30 mins before MRI for 1 day 11/24/2024 Active Encounters Encounter Location Date Provider Diagnosis Billie Christensen [address] [address] 11/23/2024 Anthony Montez PLAN OF TREATMENT Medication Medication Name Sig Start Date Stop Date Notes ALPRAZolam 0.5 MG as directed Orally 1 - 2 tabs 30 mins before MRI for 1 day 11/24/2024 Next Appt Details Provider Name:Anthony ortega, 05/17/2025 01:40:00 PM, [address] [place] [address], [phone],
--- OUTSIDE RECORDS SUMMARY | 2024-11-23 05:58 | XMS_ITS ---
Author Organization [employer] [facility], [place] Address [address] [facility] [address] [place], [place] [phone] Care Team Providers Care Process Maintenance Technician Name Role Phone FE CARDOSO Primary Care Provider Anthony Duff Unavailable [phone] REASON FOR VISIT WOJCIECH PA Encounters Encounter Location Date Provider Diagnosis [facility] [address] [place] [address] 11/23/2024 Anthony Montez PLAN OF TREATMENT Next Appt Details Provider Name:Anthony ortega, 05/17/2025 01:40:00 PM, [address] [place], [address],
--- OUTSIDE RECORDS SUMMARY | 2024-11-23 06:06 | XMS_ITS ---
Author Organization [facility] [place], [place] Address [address] [facility] [address] [place], [place] [phone] Care Team Providers Care Intraoperative Neuro Tech Name Role Phone FE CARDOSO Primary Care Provider Anthony Duff Unavailable [phone] REASON FOR VISIT UDS Encounters Encounter Location Date [facility] [address] [place] [address] 11/23/2024 Anthony Montez PLAN OF TREATMENT Next Appt Details Provider Name:Anthony ortega, 05/17/2025 01:40:00 PM, [address] [place], [address],
--- OUTSIDE RECORDS SUMMARY | 2024-12-07 05:00 | XMS_ITS ---
Author Organization [facility], [place] Address [address] [facility] [address] [place] [phone] Care Team Providers Care And Rescue Fire Fighter Crash Fire Name Role Phone FE CARDOSO Primary Care Provider Anthony Duff Unavailable [phone] REASON FOR VISIT 2a. WOJCIECH C7-T1 MEDICATIONS Medication SIG (Take, Route, Frequency, Duration) Notes Start Date End Date Status Albuterol Sulfate HFA 108 (90 Base) MCG/ACT 1 puff as needed Inhalation every 4 hrs Active ALPRAZolam 0.5 MG as directed Orally 1- 2 tabs 30 mins before MRI for 1 day 11/24/2024 Active Fluticasone-Salmeterol 100-50 MCG/ACT 1 puff Inhalation Twice a day Active Cyclobenzaprine HCl 10 MG 1 tablet at bedtime as needed Orally Once a day for 30 day(s) Active Chlorthalidone 50 MG 1 tablet in the morning with food Orally for 30 day(s) Active traMADol HCl 50 MG 1 tablet as needed Orally Once a day states she hasnt had tramadol for 3 months Not-Taking Pregabalin 75 MG 1 capsule Orally bid Active Metoprolol Succinate 100 MG 1 capsule Orally Once a day for 30 day(s) Active Losartan Potassium 100 MG 1 tablet Orally Once a day for 30 day(s) Active Encounters Encounter Location Date Provider Diagnosis Billie [address] [address] 12/07/2024 Anthony Montez Cervical disc disord er at C4-C5 level with radiculopathy M50.121 ; Cervical disc disorder at C5-C6 level with radiculopathy M50.122 and Cervical disc disorder at C6-C7 level with radiculopathy M50.123 ASSESSMENTS Encounter Date Diagnosis Assessment Notes Treatment Notes Treatment Clinical Notes Section Notes 12/07/2024 Cervical disc disorder at C4-C5 level with radiculopathy (ICD-10 - M50.121) 12/07/2024 Cervical disc disorder at C5-C6 level with radiculopathy (ICD-10 - M50.122) 12/07/2024 Cervical disc disorder at C6-C7 level with radiculopathy (ICD-10 - M50.123) PLAN OF TREATMENT Next Appt Details Follow Up: as scheduled, Janiya son: Follow Up Provider Name:Anthony ortega, 05/17/2025 01:40:00 PM, [address] [place] [address], [address], Procedure Notes * Category Sub-Category Detail Notes PROCEDURE PRE PROCEDURE DIAGNOSIS: Same as Assessment POST PROCEDURE DIAGNOSIS: Same as Assess ment INFORMED CONSENT: Patient has undergon e the educational process involved with this procedure. Alternatives to above procedure include but are not limited to Medication Management, Physical Therapy, Alternative and Complementary Therapies or Live with Pain. The patient is aware and fully understands the risks involved with this procedure. Risks include but are not limited to potential damage to any and all body organs, infection, bleeding, nerve injury, rash, allergic reaction, need for surgery or repeated procedures, hospital admission, increased pain, unalleviated pain, seizures, paralysis, weakness, numbness, difficulty urinating, difficulty walking, stroke, spinal cord injury, brain damage, blood clot, heart attack, low / high blood pressure, spinal headache, lung collapse or pneumothorax, internal organ (visceral) injury, disability and . Patient was explained that local anesthetics may be used for the procedure. Patient was explained that the side effects / reactions to local anesthetics include but are not limited to circumoral/tongue numbness, metallic taste in mouth, visual or auditory disturbances, nausea, dizziness, hallucinations, muscle twitching/tremors, drowsiness, unconsciousness, seizures, coma, respiratory arrest, cardiovascular depression, angina, bradycardia, arrhythmias and . Patient was also explained that steroids may be used for the procedure. Patient was explained that the side effects / reactions to steroids include but are not limited to lower resistance to infection, infection, allergic reactions, easy bruising, bleeding, skin discoloration, acne, weakening of muscles, bones, ligaments, and tendons, rupture of a tendon, osteoporosis, avascular necrosis, blurred vision, cataracts or glaucoma, difficulty sleeping, high blood pressure, increased appetite, swollen or puffy face, water retention, swelling, weight gain, increased growth of body hair, nervousness, restlessness, stomach irritation or bleeding, sudden mood swings, worsening of diabetes. The patient understands that the potential for infection could result in abscess or meningitis resulting in the need for further surgery, prolonged medication prescription and hospital admission. Patient also understands that all sterile surgical techniques will be followed and that the procedure will be undertaken in a safe, controlled, and monitored setting. Patient recognizes that the benefits include relief from pain and decrease of the use of pain medications, a return to a more functional lifestyle and improvement in the quality of life, a decrease in the social, psychological, emotional and physical impairment created by the painful syndrome. Informed consent was signed by the patient. Patient agreed to proceed, We discussed with the patient that the novel lopez virus COVID-19 has caused a global pandemic. Its clinical presentation varies from asymptomatic or mildly symptomatic, to life-threatening cardiopulmonary complications and . There is no effective treatment. At this time, there is not enough evidence to conclusively determine whether pain management procedures have any positive or negative impact on the possibility of clara the virus and/or development of any sequelae. Steroids are frequently used for pain injections. In high doses, steroids may have a negative effect on immunity, however, the therapeutic dose used for injections is generally low. Since COVID-19 is a new disease, and there is no conclusive evidence to suggest that injected steroids have any positive or negative effect on the COVID-19 disease, we will limit our steroid dose to the lowest effective therapeutic dose or in some cases steroids will not be injected at all. We cannot specifically comment on potential complications that may occur. To reduce the risks associated with the COVID-19 infection, we are implementing safety precautions and following protocols consistent with the CDC and state recommendations. All patients and staff will be checked for fever or signs of illness upon entry to the facility. We discussed with the patient that we cannot guarantee that he/she will not become infected during their treatment at our practice. Patient acknowledged that he/she has been informed about the potential risks to their health related to COVID-19 while undergoing treatments for their pain during this pandemic. INDICATIONS: History, Physical Ex am and appropriate Radiological findings are consistent with radiculopathy due to disc herniation, osteophyte, and/or severe degenerative disc disease contributing to spinal stenosis. Radicular pain is greatly affecting quality of life and/or functions and has caused psychological and social impairment. Pain has been present for at least 3 MONTHS. The patient has not responded to conservative care tried for at least 8 weeks. This intervention will help the patient to improve the functional quality of her life PRE PROCEDURE STATUS: Patient's H/P revi ewed and updated and there are no changes except mentioned in this procedure note. CVS EXAM: Auscultation of heart revealed normal heart sounds and regular rate and rhythm. No murmurs, rubs or gallops appreciated. The pulses were 2+ equal. RESP EXAM: Normal and regular breathing rhythm. Auscultation with a stethoscope revealed bilateral vesicular breath sounds throughout without any rales or ronchi. Pre Procedure Vital Signs: BP: 147/73 Pulse Rate: 92 RR: 16 Pulse Ox: 95 Temp 98.4 F Pre procedure pain score 6/10. Patient denies having any Fever in last 14 days. Patient denies having any Cough in last 14 days. Patient denies having any Shortness of breath or difficulty breathing in last 14 days. Patient denies having any Repeated shaking with chills in last 14 days. Patient denies having any new Muscle pain in last 14 days. Patient denies having any new Headache in last 14 days. Patient denies having any Sore throat in last 14 days. Patient denies having any New loss of taste or smell in last 14 days. Patient denies Travelling within or outside [facility] in last 14 days. Patient denies having any Contact with anyone having any respiratory illness in last 14 days. Patient denies having any associating with anyone who may have had exposure to the COVID-19 virus in last 14 days. Patient acknowledged that he/she has been informed about the potential risks to their health related to COVID-19 while undergoing treatments for their pain during this pandemic PROCEDURE PERFORMED: Interlaminar Epidur al Steroid Injection PROCEDURE LEVEL/SIDE: C7-T1 PROCEDURE: Patient was lying pr one during the injection. All the Pressure Points were padded. The injection site was prepped with Chlorhexidine x 2 and draped in sterile fashion. All the sterile precautions were taken. C arm was positioned in an A-P plane. The skin and subcutaneous tissue was anesthetized with 1 cc of 1% Lidocaine using hypodermic needle (25G, 1.5 inch). Tuohy needle (3.5 inches, 18G) was then advanced slowly using a loss of resistance technique with preservative free 0.9% sodium chloride under constant fluoroscopic guidance. A-P and Lateral views were obtained to confirm proper needle tip placement. 1 cc of Omnipaque 240 was injected under constant fluoroscopy and spread along the epidural space was seen in the A-P and lateral planes. Once the needle was in position, copies of the needle position were undertaken and are available in the patient's chart. Repeated aspirations throughout the procedure were negative for air, blood, CSF or other fluid. Patient reported no paresthsia. 10 mg of preservative free Dexamthasone (in 1 cc) and 1 cc of 0.9% Preservative Free Normal Saline, was then injected slowly in the epidural space. Patient tolerated the procedure well without complications POST PROCEDURE STATUS: At the end of the procedure, the needle was withdrawn and a sterile bandage was applied. There were no post procedure complications. Appropriate written discharge instructions were given to the patient. Patient verbalized understanding of these instructions. Patient was kept under observation for the recovery period and was discharged home after meeting discharge criteria. No motor or sensory deficits were noted. Patient was provided with educational material on keeping the injection area clean. Patient was told to expect discomfort for a few days and moderate swelling and irritation of the area. Patient was advised to avoid heat for 2-3 days, avoid submersion in bath or jacuzzi for 3-5 days, call the office if there is bleeding or excessive pain not controlled by ice or medication, go to the E.R. if loss of balance, function and bowel control or bladder control occurs. Patient was instructed to be careful the first 24 hours due to possible numbness from local anesthetic or effects of anesthesia, refrain from scrubbing the area in the shower and lightly pat to dry and continue on present medications. Post Procedure Vital Signs: BP: 141/66 Pulse Rate: 82 RR: 20 Pulse Ox: 98 Post procedure pain score 1/10
--- OUTSIDE RECORDS SUMMARY | 2025-01-25 03:20 | XMS_ITS ---
Author Organization [employer] [facility] [place], [place] Address [address] [facility] [address] [place] [phone] Care Team Providers Care Scroll Machine Operator Name Role Phone FE CARDOSO Primary Care Provider Anthony Duff Unavailable [phone] ALLERGIES Allergen (clinical drug ingredient) Drug/Non Drug Allergy documented on EMR Reaction Allergy Type Onset Date Status Venomil Honey Bee Venom Unknown Drug Allergy Active codeine Codeine Unknown Drug Allergy Active Substance with penicillin structure and antibacterial mechanism of action (substance) Penicillins Unknown Drug Allergy Active REASON FOR VISIT 1b. Follow Up neck, right shoulder MEDICATIONS Medication SIG (Take, Route, Frequency, Duration) Notes Start Date End Date Status ALPRAZolam 0.5 MG as directed Orally 1- 2 tabs 30 mins before MRI for 1 day 11/24/2024 Active traMADol HCl 50 MG 1 tablet as needed Orally Once a day states she hasnt had tramadol for 3 months Not-Taking Chlorthalidone 50 MG 1 tablet in the morning with food Orally for 30 day(s) Active Albuterol Sulfate HFA 108 (90 Base) MCG/ACT 1 puff as needed Inhalation every 4 hrs Active Cyclobenzaprine HCl 10 MG 1 tablet [...] Once a day for 30 day(s) Active SOCIAL HISTORY Tobacco Use: Social History Observation Description Date Details (start date - stop date) Current Smoker NA - NA Sex Assigned At : Social History Observation Description Sex Assigned At Unknown Tobacco Use/Smoking Question Answer Notes Are you a current smoker How often do you smoke cigarettes? every day How many cigarettes a day do you smoke? - Alcohol Screen Question Answer Notes Did you [...] W/U Status Risk SNOMED Code Notes Problem Radiculopathy, lumbosacral region (M54.17) Active confirmed Lumbosacral radiculopathy (4426302) VITAL SIGNS Oximetry 98 % 01/25/2025 BMI 23.64 kg/m2 01/25/2025 Temperature 97.6 degrees Fahrenheit 01/26/20 25 Blood pressure systolic 144 mm Hg 01/26/20 25 Blood pressure diastolic 94 mm Hg 025 Heart Rate 83 /min 01/25/2025 Respiratory Rate 18 /min 01/25/2025 Height 69.5 in 01/25/2025 Weight 162.4 lbs 01/25/2025 Encounters Encounter Location Date Provider Diagnosis [facility],[address] [address] 01/25/2025 Anthony Montez Cervical disc disord er at C4-C5 level with radiculopathy M50.121 ; Radiculopathy, lumbosacral region M54.17 ; Cervical disc disorder at C5-C6 level with radiculopathy M50.122 ; Cervical disc disorder at C6-C7 level with radiculopathy M50.123 ; Spondylosis without myelopathy or radiculopathy, cervical region M47.812 and Pain in right shoulder M25.511 ASSESSMENTS Encounter Date Diagnosis Assessment Notes Treatment Notes Treatment Clinical Notes Section Notes 01/25/2025 Cervical disc disorder at C4-C5 level with [...] cold or anyone with new GI s/s MEDICATION MANAGEMENT: SOAPP- R SCORE (2023) = ORT SCORE (2023) = Last Drug Screen done on 11/2024 was reviewed and discussed and patient is COMPLIANT with the treatment regimen based on the results Prescription Monitoring for this patient for State of [place] reviewed TODAY and patient is COMPLIANT. 01/25/2025 Radiculopathy, lumbosacral region (ICD-10 - M54.17) 01/25/2025 Cervical disc disorder at C5-C6 level with radiculopathy (ICD-10 - M50.122) 01/25/2025 Cervical disc disorder at C6-C7 level with radiculopathy (ICD-10 - M50.123) 01/25/2025 Spondylosis without myelopathy or radiculopathy, cervical region (ICD-10 - M47.812) 01/25/2025 Pain in right shoulder (ICD-10 - M25.511) [...] cold or anyone with new GI s/s MEDICATION MANAGEMENT: SOAPP- R SCORE (2023) = ORT SCORE (2023) = Last Drug Screen done on 11/2024 was reviewed and discussed and patient is COMPLIANT with the treatment regimen based on the results Prescription Monitoring for this patient for State [place] reviewed TODAY and patient is COMPLIANT. Pending Test Test Name Order Date MRI : Lumbar without contrast 01/25/2025 X ray : Lumbosacral Spine 5 view 025 Next Appt Details Follow Up: MAR 08, Reason: follow up Provider Name:Anthony ortega, 05/17/2025 01:40:00 PM, [address] [place] [address], [phone], Progress Notes * Examination Category Sub-Category Detail [...] TEST: Positive on the Righ t Side Lumbar Spine/Lower back STRAIGHT LEG RAISING TEST: Pos itive on the Right side MOTOR SYSTEM: 5/5 Right lower extr emity, 5/5 Left lower extremity SENSORY EXAM: normal Right lower e xtremity, normal Left lower extremity INSPECTION: normal PALPATION: TTP at , L3, L4, L5 RANGE OF MOTION: decreased flexion REFLEXES: Testing Straight Leg Raising Left Test r esult is: Left FACET LOADING TEST: Positive on the Righ t Side, Positive on the Left Side JORGE LUIS FEBERE'S TEST: Negative on the R ight Side, Negative on the Left Side Right shoulder INSPECTION: within normal li [...] distribution, warm and dry PSYCH: alert, oriented, practice coordinator perative with exam, good eye contact, judgement and insight good, mood/affect full range, no auditory or visual hallucinations, speech clear, no suicidal or homicidal ideation History and Physical Notes * HPI (History of Present Illness) Category Sub-Category Detail Notes Category Not es Interim History Patient here for follow up for Neck and R Shoulder pain. LOW BACK Pain interferes with activities of daily living (ADL) including bathing/showering, grooming, dressing, getting in and out of bed and walking from one location to another Chronic Pain The pain began many, years ago The Pain is located in the neck, right s houlder, low back The Pain radiates to right sh oulder and arm from neck and right leg from low back The pain score today is 2/10 - neck, , 7 /10 - low back The nature of the pain is constant, [...] Prior testing include X Ray, MRI scan Injections / date / %age relief 12/2024 WOJCIECH 80% relief Patient has physical restric tions, has work limitations Patient denies bowel incontinence
--- OUTSIDE RECORDS SUMMARY | 2025-01-25 10:43 | XMS_ITS ---
Author Organization [facility], [place] Address [address] [facility] [address] [place], [place] [id number] Care Team Providers Care Motorman/Woman Name Role Phone FE CARDOSO Primary Care Provider Anthony Duff Unavailable [phone] REASON FOR VISIT XR LUMBOSACRAL SPINE/PT ORDER Encounters Encounter Location Date Provider Diagnosis [facility] [address] [place] [address] 01/25/2025 Anthony Montez PLAN OF TREATMENT Next Appt Details Provider Name:Anthony ortega, 05/17/2025 01:40:00 PM, [address] [place], [phone],
--- OUTSIDE RECORDS SUMMARY | 2025-03-08 04:20 | XMS_ITS ---
Author Organization [facility], [place] Address [address] [facility] [address] [place], [place] [id number] Care Team Providers Care Rooming House Operator Name Role Phone FE CARDOSO Primary Care Provider Anthony Duff Unavailable [phone] ALLERGIES Allergen (clinical drug ingredient) Drug/Non Drug Allergy documented on EMR Reaction Allergy Type Onset Date Status Venomil Honey Bee Venom Unknown Drug Allergy Active codeine Codeine Unknown Drug Allergy Active Substance with penicillin structure and antibacterial mechanism of action (substance) Penicillins Unknown Drug Allergy Active REASON FOR VISIT 1b. Follow Up neck, right shoulder, low back MEDICATIONS Medication SIG (Take, Route, Frequency, Duration) Notes Start Date End Date Status Losartan Potassium 100 MG 1 tablet Orally Once a day for 30 day(s) Active Metoprolol Succinate 100 MG 1 capsule Orally Once a day for 30 day(s) Active Pregabalin 75 MG 1 capsule Orally bid Active traMADol HCl 50 MG 1 tablet as needed Orally Once a day states she hasnt had tramadol for 3 months Not-Taking ALPRAZolam 0.5 MG as directed Orally 1- 2 tabs 30 mins before MRI for 1 day 11/24/2024 Not-Taking Fluticasone-Salmeterol 100-50 MCG/ACT 1 puff Inhalation Twice a day Active Albuterol Sulfate HFA 108 (90 Base) MCG/ACT 1 puff as needed Inhalation every 4 hrs Active Chlorthalidone 50 MG 1 tablet in the morning with food Orally for 30 day(s) Active Cyclobenzaprine HCl 10 MG 1 tablet [...] many cigarettes a day do you smoke? 04-28 Alcohol Screen Question Answer Notes Did you have a drink contain ing alcohol in the past year? Yes How often did you have a dri nk containing alcohol in the past year? Monthly or less (1 point) Points 1 Interpretation Negative Tobacco use other than smoking: Question Answer Notes Are you an other tobacco user? No VITAL SIGNS Temperature 97.4 degrees Fahrenheit 03/08/20 25 Blood pressure systolic 142 mm Hg 03/08/20 25 Blood pressure diastolic 78 mm Hg 025 Heart Rate 85 /min 03/08/2025 Respiratory Rate 18 /min 03/08/2025 Height 69.5 in 03/08/2025 Weight 159 lbs 03/08/2025 BMI 23.14 kg/m2 03/08/2025 Oximetry 94 % 03/08/2025 Encounters Encounter Location Date Provider Diagnosis Billie [address] [address] 03/08/2025 Anthony Montez Cervical disc disord er at [...] Treatment Notes Treatment Clinical Notes Section Notes 03/08/2025 Cervical disc disorder at C4-C5 level with [...] [place] reviewed TODAY and patient is COMPLIANT. 03/08/2025 Radiculopathy, lumbosacral region (ICD-10 - M54.17) 03/08/2025 Cervical disc disorder at C5-C6 level with radiculopathy (ICD-10 - M50.122) 03/08/2025 Cervical disc disorder at C6-C7 level with radiculopathy (ICD-10 - M50.123) 03/08/2025 Spondylosis without myelopathy or radiculopathy, cervical region (ICD-10 - M47.812) 03/08/2025 Pain in right shoulder (ICD-10 - M25.511) [...] Order Date MRI : Lumbar without contrast 03/08/2025 Next Appt Details Follow Up: MAY 17, Reason: fo llow up Provider Name:Anthony ortega, 05/17/2025 01:40:00 PM, [address] [place], [address], Progress Notes * Examination Category Sub-Category Detail [...] distribution, warm and dry PSYCH: alert, oriented, tour coordinator perative with exam, good eye contact, judgement and insight good, mood/affect full range, no auditory or visual hallucinations, speech clear, no suicidal or homicidal ideation History and Physical Notes * HPI (History of Present Illness) Category Sub-Category Detail Notes Category Not es Interim History Patient here for follow up. DISCUSSED X RAY L SPINE. LOW BACK Pain interferes with activities of [...] low back The pain score today is 8/10 -LOW BACK The nature of the pain is constant, [...]
--- NOTE | 2025-04-18 10:29 | SUR.PREOP ---
[facility] has started construction of its new state of the art ER which will open Spring 2026. With this, we anticipate parking may be a challenge for some our surgical patients and families. Parking spaces are limited but are available for all Surgical, obstetrics, and ER patients sharing this lot. If you arrive and find you are having a hard time finding a parking space, please note that we understand the challenges, please drive around the hospital and park near Hospital Entrance 1. When you enter this entrance, you can ask a volunteer to direct or take you back to the surgical waiting area to check in. We appreciate everyone?s understanding of these expected challenges while we build for your future. Report to the Outpatient Waiting Room, entrance under the green pavilion located off [address], at time _9AM__ on date _04/26/25__. Planned Procedure Time: _1100__.? Time changes happen often and if your time is changed the preop area will call you the afternoon before. - You and your visitor will be asked to self-screen and do not enter if you have any COVID symptoms. Please call surgeon if you need to reschedule. - A mask is optional within the hospital at this time. Patients may have clear liquids (water, carbonated beverages, clear teas, apple juice) until 3 hours prior to surgery with a maximum of 20 ounces. - No food from midnight until time of surgery and no smoking, or chewing tobacco (or any form of nicotine). No chewing gum, candy or mints. Take only the following medications with a SIP of water on the morning of surgery: _, metoprolol, pregabalin (if needed albuterol cyclobenzaprine, Tylenol)___ DO NOT STOP ANY OF YOUR OTHER PRESCRIPTION MEDICATIONS PRIOR TO SURGERY EXCEPT THE FOLLOWING Hold all vitamins and supplements for 3 days per anesthesiologist. Medications to discontinue per physician __none__ Date to take last dose_n/a____ Please no make-up, nail portuguese, hairspray, perfume, deodorant, or body powder the day of surgery.? No jewelry (including any body piercings) or valuables the day of surgery, leave them at home.? Please take a shower or bath the night before, or the morning of, surgery with an antibacterial soap.? Wear comfortable, loose fitting clothing.? - Jewelry must be removed prior to entering the operating room.? Rings and piercings that are not removed may be cut off. - The hospital will not accept responsibility for valuables.? - Please leave all valuables, including medications, at home the day of surgery. If you are going home after surgery, a licensed haul truck driver must drive you home.? - NO public transportation without another adult if you receive anesthesia. - We recommend that an adult stay with you for 24 hours following discharge. - We also recommend that you do not drive, make important decision, drink alcoholic beverages, or take any drugs that were not prescribed by your health care provider for at least 24 hours after your discharge time. Follow any additional instructions given to you from your surgeon. Telephone instructions given to _Mira__and asked if any additional questions and then verbalized understanding. Patient advised to call surgeon office or pre surgery nurse liaison [phone] if any additional questions.
[2025-04-18 10:35] VITALS: BMI 22.4
[2025-04-26] VITALS (8 sets, daily range): BP systolic 119–160; BP diastolic 59–97; PULSE 54–79; RESP 12–20; TEMP 36.1–36.2; O2SAT 95–100
--- OUTSIDE RECORDS SUMMARY | 2025-04-26 02:52 | XMS_ITS ---
Author Organization Unknown Address [address] [place] [phone] Phone Care Team Providers Care Grain Buyer Name Role Phone MALIKA ODALYS Sims Attending [...] Code Code System PENICILLINS (CLASS) Rash (SNOMED-CT: 183204014), Itching (SNOMED-CT: 006366465), ABD pain (SNOMED-CT: 73815719), Diarrhea (SNOMED-CT: 60089097) Active 678333025 SNOMED-CT CODEINE Hives (SNOMED-CT: 381548097) Active 2670 RxNorm BEE VENOM Rash (SNOMED-CT: 509258677), Swelling (SNOMED-CT: 94651268), Itching (SNOMED-CT: 310217006), Abdominal Pain (SNOMED-CT: null) Active 856863 RxNorm Plan of Treatment MG MAMM SCREEN BILAT 30 04/21/2024 NEW PATIENT 11/23/2024 MRI SHOULDER 11/30/2024 FOLLOW-UP 01/25/2025 FOLLOW-UP 03/08/2025 FOLLOW-UP 05/17/2025 Encounters Encounter Diagnosis Start Date Code Code Sys tem Radiculopathy, lumbosacral region 01/25/2025 SNOMED-CT Personal Care Team Section
--- OUTSIDE RECORDS SUMMARY | 2025-04-26 02:53 | XMS_ITS ---
Author Organization Unknown Address [address] [place] [phone] Phone Care Team Providers Care Skin Lap Bonder Name Role Phone MALIKA ODALYS Sims Attending [...] Code Code System PENICILLINS (CLASS) Rash (SNOMED-CT: 135018340), Itching (SNOMED-CT: 575063037), ABD pain (SNOMED-CT: 31673041), Diarrhea (SNOMED-CT: 49162370) Active 047805584 SNOMED-CT CODEINE Hives (SNOMED-CT: 093948851) Active 2670 RxNorm BEE VENOM Rash (SNOMED-CT: 214572728), Swelling (SNOMED-CT: 77518772), Itching (SNOMED-CT: 770086621), Abdominal Pain (SNOMED-CT: null) Active 370526 RxNorm Plan of Treatment MG MAMM SCREEN BILAT 30 04/21/2024 NEW PATIENT 11/23/2024 MRI SHOULDER 11/30/2024 FOLLOW-UP 01/25/2025 FOLLOW-UP 03/08/2025 FOLLOW-UP 05/17/2025 Encounters Encounter Diagnosis Start Date Code Code Sys tem Radiculopathy, lumbosacral region 03/08/2025 SNOMED-CT Personal Care Team Section
--- OUTSIDE RECORDS SUMMARY | 2025-04-26 02:53 | XMS_ITS | Clinical Summary ---
Author Organization [facility] Address [address] [place] [address] Care Team Providers Care Government Affairs Fellow Name Role Phone Lon Recio PA-C Primary Care Provider [phone] Source Comments [facility],non-owned Affiliates and Associated Physician Practices is amultiple site organization consisting of ambulatory clinics and hospital sitesin [place], [place], [place] and [place]. This disclosure is being madepursuant to the Care Everywhere program and may not contain all information available regarding this patient. Last updated 18.[facility] [employer] Allergies Active Allergy Reactions Criticality Noted Date [...] fluticasone propionate (FLONASE) 50 MCG/ACT nasal spray [place] 2 sprays into each nostril once daily [...] Tdap) 1981 PNEUMOCOCCAL VACCINE 50+ (1 of 2 - PCV) 1981 ZOSTER VACCINE (1 of 2) 2012 SCREENING [...] this topic Medical Devices Implanted Type Area Software Engineer Web Applications Device Identifier Shelf Expiration Date Model / Serial / Lot Impl Inj 1ml Coaptite Syr Bulk Agnt - Sn/A Implanted:Qty: 1 on 03/29/2020 by Mando Welch III, MD at [facility] [employer] 12/13/2022 [id number] / N/A / [id number] Impl Inj 1ml Coaptite Syr Bulk Agnt - Sn/A Implanted:Qty: 1 on 03/29/2020 by Mando Welch III, MD at [facility] [employer] 12/13/2022 [id number] / N/A / [id number] Insurance MEDICAID AETNA [facility] Care Teams Government Affairs Fellow Relationship Specialty Start Date End Date Lon Recio PA-C [address] [place] [phone] PCP - General Physician Road Oiling Truck Driver 02/03/20
--- OUTSIDE RECORDS SUMMARY | 2025-04-26 02:55 | XMS_ITS | Encounter Summary ---
Author Organization [facility] Address [facility] [place] [address] Care Team Providers Care Chemotherapist Name Role Phone Lon Recio PA-C Primary Care Provider Encounter Details Date Type Department Care Team (Late st Contact Info) Description 07/25/[address] [facility] [address] [place] [address] , Generic Conversion, Social History Tobacco Use [...] on filedocumented in this encounter Care Teams Chemotherapist Relationship Specialty Start Date End Date Lon Recio PA-C PCP - General PHYSICIAN PAINT PROCESS ENGINEER 08/19/24 documented as of this encounter
--- OUTSIDE RECORDS SUMMARY | 2025-04-26 02:55 | XMS_ITS | Patient Health Record ---
Author Organization [facility] [place], [place] Address [address] [place], [place] [address] Care Team Providers Care Stenographer Secretary Name Role Phone JANAE FE Primary Care Provider Anthony Duff Unavailable [phone] ALLERGIES Allergen (clinical drug ingredient) Drug/Non Drug [...] Active confirmed Cervical disc disorder with radiculopathy (231235609) Problem Cervical disc disorder at C5-C6 level with radiculopathy (M50.122) Active confirmed Cervical radiculopathy (46536056) Problem Cervical disc disorder at C6-C7 level with radiculopathy (M50.123) Active confirmed Cervical disc disorder with radiculopathy (571269206) Problem Radiculopathy, lumbosacral region (M54.17) Active confirmed Lumbosacral radiculopathy (0613101) Problem Spondylosis without myelopathy or radiculopathy, cervical 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) Active confirmed Cervical spondylosis without myelopathy (195298964) VITAL SIGNS Heart Rate 85 /min 03/08/2025 Temperature 97.4 degrees Fahrenheit 03/08/2025 Respiratory Rate 18 /min 03/08/2025 Blood pressure diastolic 78 mm Hg 03/08/2025 Oximetry 94 % 03/08/2025 Height 69.5 in 03/08/2025 Blood pressure systolic 142 mm Hg 03/08/2025 Weight 159 lbs 03/08/2025 BMI 23.14 kg/m2 03/08/2025 Encounters Encounter Location Date Provider Diagnosis Billie Christensen [facility],[address] [address] 11/23/2024 Anthony Montez Cervical disc disord er at C4-C5 level with radiculopathy M50.121 ; Cervical disc disorder at C5-C6 level with radiculopathy M50.122 ; Cervical disc disorder at C6-C7 level with radiculopathy M50.123 ; Spondylosis without myelopathy or radiculopathy, cervical region M47.812 and Pain in right shoulder M25.511 [facility] [address] [place] [address] 11/23/2024 Anthony Montez [facility] [address] [place] [address] 11/23/2024 [facility] [address] [place] [address] 11/23/[facility] [address] [place] [address] 12/07/2024 Anthony Montez Cervical disc disord er at C4-C5 level with radiculopathy M50.121 ; Cervical disc disorder at C5-C6 level with radiculopathy M50.122 and Cervical disc disorder at C6-C7 level with radiculopathy M50.123 [facility] [address] [place] [address] 01/25/2025 Anthony Tc Cervical disc disord er at C4-C5 level with radiculopathy M50.121 ; Radiculopathy, lumbosacral region M54.17 ; Cervical disc disorder at C5-C6 level with radiculopathy M50.122 ; Cervical disc disorder at C6-C7 level with radiculopathy M50.123 ; Spondylosis without myelopathy or radiculopathy, cervical region M47.812 and Pain in right shoulder M25.511 [facility],[place] [address] [place] [address] 01/25/2025 [facility] [address] [place] [address] 03/08/2025 Anthony Montez Cervical disc disord er [...] The U.S. Federation of State Medical Boards, [place] Pain Society, [place] Academy of Pain Medicine and [place] Society of Interventional Pain Physicians all recommended [...] or other Controlled substances or medications with [place] effects are serious and include but not [...] The economic costs of pain in the [facility] States. J Pain 2012;13:715-24 2. Jack JW, Hector GR, Pete GE, et al. Urine drug testing in the treatment of chronic noncancer pain in a [place] private neuroscience practice; The potential effect of Medicare benefit changes in [place]. Pain Physicians 2010;13:187-94 3. Alex EJ, Dipti [...] Provider Name:Anthony Mojica shannon, 05/17/2025 01:40:00 PM, [address] [place] [address], [phone], MEDICAL (GENERAL) HISTORY Medical History History ICD [...]
--- OUTSIDE RECORDS SUMMARY | 2025-04-26 02:55 | XMS_ITS | Clinical Summary ---
Author Organization [facility] Address [address] [place] [address] Care Team Providers Care Manager Investment Banking Name Role Phone Lon Recio PA-C Primary [...] Comments Blood Pressure 128/64 07/05/2015 9:47 AM BINDERY MACHINE OPERATOR Pulse 94 04/13/2013 3:24 PM BINDERY MACHINE OPERATOR Temperature 36.5 C (97.7 F) 04/13/2013 3:24 PM BINDERY MACHINE OPERATOR Respiratory Rate 18 04/13/2013 3:24 PM BINDERY MACHINE OPERATOR Oxygen Saturation - - Inhaled Oxygen Concentration - - Weight 77.1 kg (170 lb) 07/05/2015 9:47 AM BINDERY MACHINE OPERATOR Height 177.8 cm (5' 10) 07/05/2015 9:47 AM BINDERY MACHINE OPERATOR Body Mass Index 24.39 07/05/2015 9:47 AM BINDERY MACHINE OPERATOR Plan of Treatment Health Maintenance Due Date [...] to complete this topic Insurance Care Teams Manager Investment Banking Relationship Specialty Start Date End Date Lon Recio PA-C PCP - General PHYSICIAN VICTIM WITNESS ADMINISTRATOR 08/19/24
[2025-04-26] MEDS: LACTATED RINGERS 1,000 ML 30 ML IV CONT (10:50)
--- NOTE | 2025-04-26 12:17 | SUR.PREOP ---
1150 PT INFORMED OF SURGERY TIME DELAY, DENIES NEEDS AT THIS TIME.
--- NOTE | 2025-04-26 14:06 | PM.IMHP ---
H&P: HPI History of Present Illness Date/Time: 04/26/25 14:06 Chief Complaint: Dysphonia Narrative: Patient has a long Hx of dysphonia. This has worsened over the past few years. No other symptoms. She was evaluated in clinic and flexible laryngoscopy showed bilateral vocal fold edema and leukoplakia. Direct laryngoscopy with biopsy was recommended to the patient and she presents for this today. Review of Systems Review of Systems: All systems reviewed & are unremarkable except as noted in HPI and below PMFSH Past Medical History Medical History (Updated 04/25/25 @ 15:11 by Rafael Franz DO) Asthma-COPD overlap syndrome Seizure Leukoplakia of vocal cords Dysphonia Chronic pain Hypertension Stage III chronic kidney disease IV Surgical History Surgical History History of partial hysterectomy History of facial surgery Reconstruction due to falling 2 stories onto her face- right side Hx of tubal ligation Family History Family History Mother Carcinoma of colon Hypertension Father Hypertension Social History Social History Smoking packs per day: 1 Smoking cigarettes per day: 20.0 Years smoked: 40 Smoking pack-years: 40.00 Smoking status: Current every day smoker Second hand tobacco smoke exposure: No Alcohol intake: current Drinks per week: 4 Alcohol use details: 8 Substance use: current Substance use type: marijuana Do You Feel Safe in your Home?: Yes Lack of Transportation: No Lack of Food: Never True Current Housing: I Have Housing Concerned About Future Housing: No Difficulty Paying Gas/Electric Bills: No Difficulty Paying for Meds: No Currently Unemployed: YES Education: High School Diploma/GED Difficulty w/ Childcare or Family Care: No Living arrangements: with family Occupation/Education: retired Gender identity (if verbalized by the patient): Female Sexual Orientation (if Verbalized by the Patient): Straight or Heterosexual Spiritual care concerns: No Agree to blood products: Yes Meds Home Medications and Allergies Home Medications ?Medication ?Instructions ?Recorded ?Confirmed ?Type chlorthalidone 50 mg tablet 50 mg PO DAILY #90 tabs 01/21/25 04/26/25 Rx fluticasone 100 mcg-salmeterol 50 1 inh inhalation Q12H 01/31/25 04/26/25 History mcg/dose blistr powdr for inhalation (Advair Diskus) tapinarof 1 % topical cream (Vtama) 1 applic topical DIRECTED PRN 01/31/25 04/19/25 History dermatitis acetaminophen 325 mg tablet (Pain 650 mg PO Q4-6H PRN headache 04/18/25 04/19/25 History Relief (acetaminophen)) albuterol 90 mcg-budesonide 80 2 inh inhalation ONCE PRN 04/26/25 04/26/25 Rx mcg/actuation HFA aerosol inhaler shortness of breath #10.7 grams (Airsupra) cyclobenzaprine 10 mg tablet 10 mg PO ONCE PRN muscle spasm #90 04/26/25 04/26/25 Rx tabs losartan 100 mg tablet 50 mg PO DAILY 04/26/25 04/26/25 History metoprolol succinate 100 mg 100 mg PO DAILY #90 tabs 04/26/25 04/26/25 Rx tablet,extended release 24 hr pregabalin 75 mg capsule 75 mg PO BID #60 caps 04/26/25 04/26/25 Rx Allergies Allergy/AdvReac Type Severity Reaction Status Date / Time bee venom protein (honey bee) Allergy Mild Rash Verified 04/26/25 10:36 codeine Allergy Mild Rash Verified 04/26/25 10:36 Penicillins Allergy Mild Rash Verified 04/26/25 10:36 Vital Signs Vital Signs - 24 hr 04/26/25 10:25 Temperature 36.2 C L Pulse Rate 68 Respiratory Rate 18 Blood Pressure 121/76 Pulse Oximetry 98 Oxygen Delivery Room Air Exam Narrative: General: Well developed, well nourished. No apparent distress. Voice raspy. Head: Normocephalic, atraumatic. Eyes: Sclerae and conjunctivae clear. Pupils equal and round. Full extraocular motility. Ears: Normal pinnae. Canals clear. Tympanic membranes intact. Middle ear spaces well aerated. Nose: Nasal dorsum is straight. No drainage or crusting at nares. Normal mucosa. Oral Cavity / Oropharynx: Moist mucous membranes. No suspicious lesions. Posterior pharynx is clear without drainage. Neck: Supple, nontender. No palpable lymphadenopathy, neck mass, or thyromegaly. Lungs: Respirations unlabored. Cardiovascular: Extremities warm and well perfused. Neurologic: Alert, oriented. Moves all extremities. Facial sensation intact to light touch. Face symmetric. Palate elevates symmetrically. Tongue midline. Assessment and Plan Assessment and plan (1) Dysphonia: Code(s): R49.0 - Dysphonia Status: Acute Plan OR today for microdirect laryngoscopy with biopsy. Anticipate discharge to home afterwards. The risks, benefits, and alternatives to surgery were discussed. The risks of pain, bleeding, infection, scarring, no improvement in symptoms, worsening symptoms, recurrent symptoms, airway compromise, injury to the lips or teeth or gums, tongue swelling and bruising, tongue numbness, altered taste, and injury to the neck were all reviewed. The patient expressed understanding and wishes to proceed with surgery.
--- NOTE | 2025-04-26 14:13 | WPDHPUPDATE1 ---
History and Physical Update Update Date/Time: 04/26/25 14:13 History and Physical has been reviewed, including an updated exam of the patient. There are NO changes in the patient's condition. Risks, benefits, and alternatives have been discussed and questions answered. Patient agrees to proceed with procedure.
--- NOTE | 2025-04-26 14:40 | WPDANESEPPF ---
Anes - Initial Pre Proc Eval Procedure: Operation Date: 04/26/25 12:00 Proposed Procedures p Direct Micro Laryngoscopy with Biopsy, Laser Ablation of Vocal Fold Lesions - Kennedy Houston MD Date/Time: 04/26/25 14:40 Surgeon: Kennedy Houston MD Pre Op Diagnosis: dysphonia, other diseases of vocal cords Patient Data Age: 64 Gender: F Height: 1.75 m Weight: 69.8 kg Last Vital Signs Temp 36.2 C L 04/26/25 10:25 Pulse 68 04/26/25 10:25 Resp 18 04/26/25 10:25 BP 121/76 04/26/25 10:25 Pulse Ox 98 04/26/25 10:25 O2 Del Method Room Air 04/26/25 10:25 Allergies Allergy/AdvReac Type Severity Reaction Status Date / Time bee venom protein (honey bee) Allergy Mild Rash Verified 04/26/25 10:36 codeine Allergy Mild Rash Verified 04/26/25 10:36 Penicillins Allergy Mild Rash Verified 04/26/25 10:36 Home Medications ?Medication ?Instructions ?Recorded ?Confirmed ?Type chlorthalidone 50 mg tablet 50 mg PO DAILY #90 tabs 01/21/25 04/26/25 Rx fluticasone 100 mcg-salmeterol 50 1 inh inhalation Q12H 01/31/25 04/26/25 History mcg/dose blistr powdr for inhalation (Advair Diskus) tapinarof 1 % topical cream (Vtama) 1 applic topical DIRECTED PRN 01/31/25 04/19/25 History dermatitis acetaminophen 325 mg tablet (Pain 650 mg PO Q4-6H PRN headache 04/18/25 04/19/25 History Relief (acetaminophen)) albuterol 90 mcg-budesonide 80 2 inh inhalation ONCE PRN 04/26/25 04/26/25 Rx mcg/actuation HFA aerosol inhaler shortness of breath #10.7 grams (Airsupra) cyclobenzaprine 10 mg tablet 10 mg PO ONCE PRN muscle spasm #90 04/26/25 04/26/25 Rx tabs losartan 100 mg tablet 50 mg PO DAILY 04/26/25 04/26/25 History metoprolol succinate 100 mg 100 mg PO DAILY #90 tabs 04/26/25 04/26/25 Rx tablet,extended release 24 hr pregabalin 75 mg capsule 75 mg PO BID #60 caps 04/26/25 04/26/25 Rx Patient hx anesthesia problems: none Family hx anesthesia problems: none Results Review: All pre-operative results and documents have been reviewed as part of the pre-operative evaluation. [facility] Past Medical History Medical History (Updated 04/25/25 @ 15:11 by Rafael Franz DO) Asthma-COPD overlap syndrome Seizure Leukoplakia of vocal cords Dysphonia Chronic pain Hypertension Stage III chronic kidney disease IV Surgical History Surgical History History of partial hysterectomy History of facial surgery Reconstruction due to falling 2 stories onto her face- right side Hx of tubal ligation Family History Family History Mother Carcinoma of colon Hypertension Father Hypertension Social History Social History Smoking packs per day: 1 Smoking cigarettes per day: 20.0 Years smoked: 40 Smoking pack-years: 40.00 Smoking status: Current every day smoker Second hand tobacco smoke exposure: No Alcohol intake: current Drinks per week: 4 Alcohol use details: 8 Substance use: current Substance use type: marijuana Do You Feel Safe in your Home?: Yes Lack of Transportation: No Lack of Food: Never True Current Housing: I Have Housing Concerned About Future Housing: No Difficulty Paying Gas/Electric Bills: No Difficulty Paying for Meds: No Currently Unemployed: YES Education: High School Diploma/GED Difficulty w/ Childcare or Family Care: No Living arrangements: with family Occupation/Education: retired Gender identity (if verbalized by the patient): Female Sexual Orientation (if Verbalized by the Patient): Straight or Heterosexual Spiritual care concerns: No Agree to blood products: Yes Anes - Eval Final PreProcedure Day of Procedure 04/26/25 14:40 Patient weight: normal Heart: regular rate and rhythm Lungs: clear to auscultation Airway: Mallampati scale class II Neurological: alert and oriented Last oral intake: >/= 8 hours ASA classification: III Emergent: no Anesthetic plan: proceed Anesthesia type and monitoring: general ETT and standard monitoring Results Review: All pre-operative results and documents have been reviewed as part of the pre-operative evaluation. Informed Consent: The patient's anesthetic plan and its attendant risks and benefits were discussed with the patient/family/POA. Questions were solicited and answers provided to the satisfaction of the patient/family/POA.
--- NOTE | 2025-04-26 15:11 | S_PTH ---
PATIENT: Mira Ng LOC: [facility] U#:[id number] AGE/SX: 64/F ROOM: RE04/26/[address]: Kennedy Houston MD : 1960 BED: DIS: 04/26/2025 SPEC #: [id number] RECD: 04/27/25 08:06 STATUS: CHELE REQ #: [id number] SIERRA: 04/26/25 15:[address]: Kennedy Houston DEPT: [facility] Surgical RECD BY: Kaveh Ordoñez ENTERED: 04/27/25 08:07 SP TYPE: Surgical OTHR DR: Patrice Kong, Tissues: A - Vocal Cord Biopsy B - Vocal Cord Biopsy Procedures: Hematoxylin and Eosin Stain Gross and Microscopic Level 4
--- NOTE | 2025-04-26 15:33 | W.PM.PROC2 ---
Procedure Note - Detailed Date of Procedure 04/26/25 Pre-op Diagnosis Dysphonia Post-op Diagnosis Same Procedure Performed Direct microlaryngoscopy with biopsy Surgeon Kennedy Houston MD Anesthesia General Description of Procedure Patient was identified in the preoperative area and informed written consent was obtained. The patient was transported to the operating room and placed supine on the operating room table. The anesthesiology service induced general anesthesia and intubated the patient. The patient was then positioned and draped. A surgical time-out was conducted confirming the patient's identity and the procedure to be performed. A mouthguard was placed to protect the upper dentition. A Kleinsasser laryngoscope was inserted. The oropharynx, hypopharynx, and larynx were all inspected. The scope was advanced into the laryngeal introitus. The patient was placed into suspension. Examination of the true vocal folds showed bilateral edema and erythema with some mucosal irregularities along the medial aspect of both cords but no overt mucosal lesions. Two separate biopsies were taken; one on the left and one on the right. The biopsies were taken from the inferomedial aspects of each true vocal fold. Minimal tissue was sampled so as to limit the morbidity of the procedure. The biopsies were sent for permanent pathology. There was no bleeding. The patient was then taken out of suspension. The laryngoscope and mouthguard were removed. There were no injuries to the lips or teeth or gums. The patient was returned to the anesthesiology service. She was awoken, extubated, and transferred to the postoperative recovery area in stable condition. There were no immediate complications. Estimated Blood Loss 1
[2025-04-26] MEDS: fentaNYL CITRATE INJ (*CRX) 100 MCG/2 ML VIAL 25 MCG IV PUSH (15:46)
== END 2025-04-26 17:04 | disposition home or self-care (01) ==
PROVIDERS: PCP Family Medicine; Visit Provider Otolaryngology
PROC: 0CJS8ZZ Inspection of Larynx, Via Natural or Artificial Opening Endoscopic (ICD-10-PCS; CPT 31536; principal; 2025-04-26 12:00)
DX: J38.3 Other diseases of vocal cords (principal); D14.1 Benign neoplasm of larynx; I12.9 Hypertensive chronic kidney disease with stage 1 through stage 4 chronic kidney disease, or unspecified chronic kidney disease; N18.4 Chronic kidney disease, stage 4 (severe); J44.89 Other specified chronic obstructive pulmonary disease; E87.5 Hyperkalemia; R56.9 Unspecified convulsions; G89.29 Other chronic pain; F17.210 Nicotine dependence, cigarettes, uncomplicated; F12.90 Cannabis use, unspecified, uncomplicated; Z79.51 Long term (current) use of inhaled steroids; Z98.890 Other specified postprocedural states; Z98.51 Tubal ligation status; Z80.0 Family history of malignant neoplasm of digestive organs
CPT/HCPCS: 31536; 88305; A9270; J0330; J1100; J2405; J2704; J3010; J7120